=== PATIENT | male | born 1945 | race Caucasian/White ===

== ENCOUNTER 2017-01-22 12:03 | Inpatient (IN) ==
[2017-01-22] MEDS ORDERED: ADENOCARD IVP STA (12:23)
[2017-01-22] MEDS ORDERED: ADENOCARD IVP ONE (12:24)
[2017-01-22] MEDS ORDERED: LOPRESSOR IVP STA (12:26)
[2017-01-22] MEDS ORDERED: LOPRESSOR ONE (12:27)
[2017-01-22] MEDS ORDERED: CARDIZEM INJ ONE (12:36)
[2017-01-22] MEDS ORDERED: CARDIZEM INJ IVP STA ×2 (12:36→17:10)
[2017-01-22 12:37] LABS: BASOPHILS % (AUTO) 0.3 % (0.0-3.0); EOSINOPHILS % (AUTO) 0.2 % (0.0-7.0); HEMATOCRIT 52.9 % (42.0-52.0); HEMOGLOBIN 17.4 g/dl (14.0-18.0); IMMATURE GRANULOCYTE % (AUTO) 0.5 % (0.0-5.0); LYMPHOCYTES # (AUTO) 1.1 K/uL (0.60-3.4); MEAN CORPUSCULAR HEMOGLOBIN 28.3 pg (27.0-31.0); MEAN CORPUSCULAR HGB CONC 32.9 (31.8-35.4); MEAN CORPUSCULAR VOLUME 86.2 fl (80.0-94.0); MONOCYTES # (AUTO) 1.4 K/uL (0.4-2.0); MONOCYTES % (AUTO) 12.5 (0-10); NEUTROPHILS # (AUTO) 8.4 K/ul (2.0-6.9); NEUTROPHILS % (AUTO) 76.5; PLATELET COUNT 280 10^3/uL (140-440); RED BLOOD COUNT 6.14 10^6/ul (4.70-6.10); WHITE BLOOD COUNT 11.01 K/ul (4.2-10.2)
[2017-01-22 12:54] LABS: PARTIAL THROMBOPLASTIN TIME 25.1 SEC (23.9-40.0); PROTHROMBIN TIME 10.8 SEC (9.3-11.0)
[2017-01-22 13:22] LABS: ALBUMIN 3.3 g/dL (3.4-5.0); ALBUMIN/GLOBULIN RATIO 0.89; ANION GAP 18.3; BILIRUBIN,TOTAL 0.44 mg/dL (0.00-1.20); BUN/CREATININE RATIO 21.1; CALCIUM 9.6 mg/dL (8.2-10.2); CREATININE 1.09 mg/dL (0.60-1.10); POTASSIUM 4.3 mmol/L (3.5-5.1); TROPONIN I 0.051 ng/ml (0.0000-0.4000)
[2017-01-22] MEDS ORDERED: VERSED IVP STA (14:17)
[2017-01-22] MEDS ORDERED: VERSED ONE (14:17)
--- NOTE | 2017-01-22 14:45 | ED.PDOC ---
General ED Provider: Dr. MONTSERRAT MYESR Chief Complaint: Shortness of Air Stated Complaint: SHORT OF AIR Time Seen by Physician: 12:00 Mode of Arrival: Walk-In Information Source: Patient Exam Limitations: No limitations Primary Care Provider: LIGIA LONDON Nursing and Triage Documentation Reviewed and Agree: Yes Cardiovascular Complaint Exam - Palpitations Complaint/Exam Symptoms Are: Still present Timing: Intermittent Initial Severity: Moderate Current Severity: Moderate Character: Reports: Irregular, Pounding, Skipped beats Aggravating: Reports: Exertion, Rest Alleviating: Reports: Medications Associated Signs and Symptoms: Reports: Lightheadedness, Shortness of breath. Denies: Dizziness, Syncope, Chest pain, Diaphoresis, Nausea, Vomiting Cardiac Risk Factors: Reports: None Pulmonary Embolism Risk Factors: Reports: Bedrest Review of Systems - Review Of Systems Constitutional: Reports: Malaise Eyes: Reports: No symptoms Ears, Nose, Mouth, Throat: Reports: No symptoms Respiratory: Reports: No symptoms Cardiac: Reports: Chest pain, Palpitations GI: Reports: No symptoms : Reports: No symptoms Musculoskeletal: Reports: No symptoms Skin: Reports: No symptoms Neurological: Reports: No symptoms Endocrine: Reports: No symptoms Hematologic/Lymphatic: Reports: No symptoms All Other Systems: Reviewed and Negative Past Medical History - Past Medical History Previously Healthy: Yes Endocrine: Reports: None Cardiovascular: Reports: None Respiratory: Reports: None Hematological: Reports: None Gastrointestinal: Reports: None Genitourinary: Reports: None Neuro/Psych: Reports: None Musculoskeletal: Reports: None Cancer: Reports: None - Surgical History General Surgical History: Reports: None - Family History Family History: Reports: None - Social History Smoking Status: Former smoker Hx Substance Use: No Alcohol Screening: Occasionally - Immunizations Tetanus Shot up to Date: Yes Physical Exam - Physical Exam Appearance: Ill-appearing Ill-appearing: Moderate Pain Distress: Moderate Eyes: GISELLE, EOMI, Conjunctiva clear ENT: Ears normal, Nose normal, Oropharynx normal Respiratory: Breath sounds diminished, Rhonchi Cardiovascular: RRR, Pulses normal, No rub, No murmur GI/: Soft, Nontender, No masses, Bowel sounds normal, No Organomegaly Musculoskeletal: Normal strength, ROM intact, No edema, No calf tenderness Skin: Warm, Dry, Normal color Neurological: Sensation intact, Motor intact, Reflexes intact, Cranial nerves intact, Alert, Oriented Psychiatric: Affect appropriate, Mood appropriate Interpretation - Radiology Interpretation Radiology Interpretation By: Radiologist Radiology Results: No acute changes (THIS PT'S EKH RANGED FROM WIDE COMPLEX TACHYCARDIA REGULAR INITALLY THEN BECAME IRREGULAR IV ADENOCAR SLOWED HIM ENOUGH TO SHOW UNDERLYING FLUTTER WAVES PT EVENTUALLY HAD TO BE DARIOVERTED WITH 50 JOULES TO NSR RIGHT BUDDLE BRANCH BLOCK) Physician Notification - Case Discussed Physician Notified: PMD Time of Notification: 14:00 (SAW THE PT IN THE ER ) Admit To: Inpatient Critical Care Note - Critical Care Note Total Time (mins): 3 (S/P SEDATION CARDIOVERSION ) Course - Course Hematology/Chemistry: 01/22/17 12:35 01/22/17 12:35 Orders, Labs, Meds: Lab Review 01/22/17 01/22/17 01/22/17 12:35 12:35 12:35 WBC 11.01 H RBC 6.14 H Hgb 17.4 Hct 52.9 H MCV 86.2 MCH 28.3 MCHC 32.9 RDW Coeff of Iván 15.4 H Plt Count 280 Immature Gran % (Auto) 0.5 Neut % (Auto) 76.5 Lymph % (Auto) 10.0 [place] % (Auto) 12.5 H Eos % (Auto) 0.2 Baso % (Auto) 0.3 Immature Gran # (Auto) 0.1 Neut # 8.4 H Lymph # 1.1 [place] # 1.4 Eos # 0.0 Baso # 0.0 PT 10.8 INR 1.06 APTT 25.1 Sodium 139 Potassium 4.3 Chloride 106 Carbon Dioxide 19 L Anion Gap 18.3 BUN 23 H Creatinine 1.09 Estimated GFR (MDRD) 67.00 BUN/Creatinine Ratio 21.10 Glucose 122 H Calcium 9.6 Total Bilirubin 0.44 AST 12 L ALT 18 Alkaline Phosphatase 60 Total Creatine Kinase 51 Troponin I 0.0510 Total Protein 7.0 Albumin 3.3 L Globulin 3.7 Albumin/Globulin Ratio 0.89 TSH Free T4 01/22/17 12:35 WBC RBC Hgb Hct MCV MCH MCHC RDW Coeff of Iván Plt Count Immature Gran % (Auto) Neut % (Auto) Lymph % (Auto) [place] % (Auto) Eos % (Auto) Baso % (Auto) Immature Gran # (Auto) Neut # Lymph # [place] # Eos # Baso # PT INR APTT Sodium Potassium Chloride Carbon Dioxide Anion Gap BUN Creatinine Estimated GFR (MDRD) BUN/Creatinine Ratio Glucose Calcium Total Bilirubin AST ALT Alkaline Phosphatase Total Creatine Kinase Troponin I Total Protein Albumin Globulin Albumin/Globulin Ratio TSH 2.376 Free T4 1.09 Orders Category Date Time Status EKG-(ED ONLY) Stat CARDIO 01/22/17 12:37 Completed EKG-(ED ONLY) Stat CARDIO 01/22/17 13:11 Completed EKG-(ED ONLY) Stat CARDIO 01/22/17 13:11 Completed EKG-(ED ONLY) Stat CARDIO 01/22/17 13:11 Completed EKG-(ED ONLY) Stat CARDIO 01/22/17 14:40 Ordered Cardioversion [ED CARDIOVERT PATIENT] .ONCE EMERGENCY 01/22/17 14:40 Ordered IV [ED IV/MEDIPORT/POWERPORT] .ONCE EMERGENCY 01/22/17 12:20 Active CBC W/ AUTO DIFF Stat LAB 01/22/17 12:35 Completed COMPREHENSIVE METABOLIC PANEL Stat LAB 01/22/17 12:35 Completed CREATINE KINASE Stat LAB 01/22/17 12:35 Completed FREE T4 (FREE THYROXINE) Stat LAB 01/22/17 12:35 Completed PARTIAL THROMBOPLASTIN TIME Stat LAB 01/22/17 12:35 Completed PT WITH INR Stat LAB 01/22/17 12:35 Completed THYROID STIMULATING HORMONE Stat LAB 01/22/17 12:35 Completed TROPONIN I Stat LAB 01/22/17 12:35 Completed 0.9 % Sodium Chloride [Saline Flush] MEDS 01/22/17 12:20 Active 1 syr IVF PRN PRN Adenosine [Adenocard] MEDS 01/22/17 12:24 Discontinued 12 mg IVP .STK-MED ONE Adenosine [Adenocard] MEDS 01/22/17 12:23 Discontinued 6 mg IVP ONCE STA Diltiazem HCl Inj [Cardizem Inj] MEDS 01/22/17 12:36 Discontinued 20 mg IVP ONCE STA Diltiazem HCl Inj [Cardizem Inj] MEDS 01/22/17 12:36 Discontinued 50 mg .ROUTE .STK-MED ONE Metoprolol Tartrate [Lopressor] MEDS 01/22/17 12:27 Discontinued 5 mg .ROUTE .STK-MED ONE Metoprolol Tartrate [Lopressor] MEDS 01/22/17 12:26 Discontinued 5 mg IVP ONCE STA Midazolam HCl Inj [Versed] MEDS 01/22/17 14:17 Discontinued 5 mg .ROUTE .STK-MED ONE Midazolam HCl Inj [Versed] MEDS 01/22/17 14:17 Discontinued 5 mg IVP ONCE STA Medications Generic Name Dose Route Start Last Admin Trade Name Freq PRN Reason Stop Dose Admin Sodium Chloride 1 syr 01/22/17 12:20 01/22/17 13:00 Saline Flush IVF 1 syr PRN PRN Administration To flush IV Discontinued Medications Generic Name Dose Route Start Last Admin Trade Name Freq PRN Reason Stop Dose Admin Adenosine 6 mg 01/22/17 12:23 01/22/17 12:59 Adenocard IVP 01/22/17 12:24 Not Given ONCE STA Diltiazem HCl 20 mg 01/22/17 12:36 01/22/17 13:00 Cardizem Inj IVP 01/22/17 12:37 Not Given ONCE STA Metoprolol Tartrate 5 mg 01/22/17 12:26 01/22/17 12:59 Lopressor IVP 01/22/17 12:27 Not Given ONCE STA Midazolam HCl 5 mg 01/22/17 14:17 Versed IVP 01/22/17 14:18 ONCE STA Vital Signs: Temp Pulse Resp BP Pulse Ox 01/22/17 12:04 97.7 F 170 H 24 112/76 92 L RENÉ Risk Score RENÉ Risk Score: Risk Score Odds of by 30D 0 0.1 (0.1-0.2) 1 0.3 (0.2-0.3) 2 0.4 (0.3-0.5) 3 0.7 (0.6-0.9) 4 1.2 (1.0-1.5) 5 2.2 (1.9-2.6) 6 3.0 (2.5-3.6) 7 4.8 (3.8-6.1) Departure - Departure Time of Disposition: 14:49 (ADMITTED ) Disposition: ADMITTED INPATIENT Discharge Problem: Wide-complex tachycardia, Atrial fibrillation and flutter Instructions: A-fib (Atrial Fibrillation) (ED) Condition: Good Pt referred to PMD for follow-up: Yes Additional Instructions: Please call your Family Physician as soon as possible to schedule a follow-up appointment. Allergies/Adverse Reactions: Allergies No Known Allergies Allergy (Unverified 01/22/17 12:07) Home Medications: Ambulatory Orders 1 [No Reported Medications] 01/22/17 Hydrochlorothiazide 12.5 mg PO DAILY 01/22/17 Metformin HCl 2,000 mg PO DAILY 01/22/17 Simvastatin [Zocor] 80 mg PO DAILY 01/22/17 Disposition Discussed With: Patient
[2017-01-22] MEDS ORDERED: LANOXIN IVP STA ×2 (14:46→16:35)
[2017-01-22] MEDS ORDERED: LOVENOX SUBCUT STA (15:04)
[2017-01-22] MEDS: SODIUM CHLORIDE 1,000 ML IV SCH ×2 (16:00→20:30)
[2017-01-22 16:30] VITALS: BMI 27.3
[2017-01-22] MEDS ORDERED: BETAPACE PO STA (16:35)
[2017-01-22] MEDS ORDERED: SOLU-CORTEF 250 MG IVP STA (16:36)
[2017-01-22] MEDS: CARDIZEM PO SCH ×2 (16:54→20:30)
[2017-01-22] MEDS ORDERED: CARDIZEM INJ 125 MG in SODIUM CHLORIDE 100 ML IV SCH ×2 (17:30→17:39)
[2017-01-22] MEDS ORDERED: LANOXIN IVP ONE (18:00)
[2017-01-22] MEDS ORDERED: LOVENOX ONE (18:30)
[2017-01-22] MEDS: LOVENOX SUBCUT SCH (18:38)
[2017-01-22 21:51] LABS: TROPONIN I 0.019 ng/ml (0.0000-0.4000)
[2017-01-23] MEDS ORDERED: LANOXIN ONE (05:46)
[2017-01-23] MEDS: CARDIZEM PO SCH ×3 (05:49→20:54)
[2017-01-23] MEDS ORDERED: LANOXIN IVP ONE (06:00)
[2017-01-23 06:08] LABS: BASOPHILS % (AUTO) 0.4 % (0.0-3.0); EOSINOPHILS # (AUTO) 0.1 K/ul (0.0-0.7); EOSINOPHILS % (AUTO) 1.1 % (0.0-7.0); HEMATOCRIT 54.9 % (42.0-52.0); HEMOGLOBIN 17.5 g/dl (14.0-18.0); IMMATURE GRANULOCYTE % (AUTO) 0.4 % (0.0-5.0); LYMPHOCYTES # (AUTO) 1.4 K/uL (0.60-3.4); LYMPHOCYTES % (AUTO) 15.6 (10.0-50.0); MEAN CORPUSCULAR HEMOGLOBIN 28.4 pg (27.0-31.0); MEAN CORPUSCULAR HGB CONC 31.9 (31.8-35.4); MONOCYTES # (AUTO) 1.2 K/uL (0.4-2.0); MONOCYTES % (AUTO) 13.4 (0-10); NEUTROPHILS # (AUTO) 6.4 K/ul (2.0-6.9); NEUTROPHILS % (AUTO) 69.1; PLATELET COUNT 258 10^3/uL (140-440); RED BLOOD COUNT 6.17 10^6/ul (4.70-6.10); WHITE BLOOD COUNT 9.19 K/ul (4.2-10.2)
[2017-01-23 06:27] LABS: ALBUMIN 3.3 g/dL (3.4-5.0); ALBUMIN/GLOBULIN RATIO 0.87; ANION GAP 15.3; BILIRUBIN,TOTAL 0.52 mg/dL (0.00-1.20); BUN/CREATININE RATIO 22.22; CALCIUM 9.2 mg/dL (8.2-10.2); CREATININE 0.99 mg/dL (0.60-1.10); POTASSIUM 4.3 mmol/L (3.5-5.1); TOTAL PROTEIN 7.1 g/dL (5.8-8.1)
[2017-01-23 06:33] LABS: TROPONIN I 0.021 ng/ml (0.0000-0.4000)
[2017-01-23 08:42] LABS: ABG BASE EXCESS -4 (-2.0-2.0); ABG PCO2 38.7 mmHg (35-45)
[2017-01-23 08:43] LABS: ABG HCO3 21.4 (22.0-26.0); ABG TCO2 23 (22.0-28.0)
[2017-01-23] MEDS: SYMBICORT 160-4.5 MCG INHALER IH SCH ×3 (08:58→20:53)
[2017-01-23] MEDS: NON-FORMULARY MEDICATION (Fluticasone/Vilanterol [Breo Ellipta 100-25 Mcg Inh] 1 PUFF) INH SCH (08:59)
[2017-01-23] MEDS: GLUCOPHAGE PO SCH ×2 (08:59→16:57)
[2017-01-23] MEDS ORDERED: NON-FORMULARY MEDICATION (Hydrochlorothiazide [Hydrochlorothiazide] 12.5 MG) PO SCH ×22 (09:00)
[2017-01-23] MEDS ORDERED: METFORMIN HCL 2000 MG PO SCH (09:00)
[2017-01-23] MEDS: HYDROCHLOROTHIAZIDE PO SCH (09:00)
[2017-01-23] MEDS: BETAPACE PO SCH ×2 (09:00→20:54)
[2017-01-23] MEDS: LOVENOX SUBCUT SCH (09:01)
[2017-01-23] MEDS: SODIUM CHLORIDE 1,000 ML IV SCH ×2 (09:02→21:36)
[2017-01-23] MEDS: SOLU-CORTEF 250 MG IVP SCH ×3 (09:02→20:53)
[2017-01-23] MEDS: XOPENEX 0.63 MG NEB SCH ×3 (11:09→23:53)
[2017-01-23] MEDS: ELIQUIS PO SCH ×2 (11:37→20:54)
[2017-01-23] MEDS: ZOCOR PO SCH (16:57)
[2017-01-24] MEDS: XOPENEX 0.63 MG NEB SCH ×3 (05:36→17:10)
[2017-01-24] MEDS: SOLU-CORTEF 250 MG IVP SCH ×3 (05:54→20:19)
[2017-01-24 07:44] LABS: BASOPHILS % (AUTO) 0.1 % (0.0-3.0); EOSINOPHILS % (AUTO) 0.1 % (0.0-7.0); HEMATOCRIT 51.7 % (42.0-52.0); HEMOGLOBIN 16.5 g/dl (14.0-18.0); IMMATURE GRANULOCYTE % (AUTO) 0.5 % (0.0-5.0); LYMPHOCYTES # (AUTO) 1.3 K/uL (0.60-3.4); MEAN CORPUSCULAR HEMOGLOBIN 28.3 pg (27.0-31.0); MEAN CORPUSCULAR HGB CONC 31.9 (31.8-35.4); MEAN CORPUSCULAR VOLUME 88.7 fl (80.0-94.0); MONOCYTES # (AUTO) 1.1 K/uL (0.4-2.0); MONOCYTES % (AUTO) 10.5 (0-10); NEUTROPHILS # (AUTO) 8.1 K/ul (2.0-6.9); NEUTROPHILS % (AUTO) 76.8; PLATELET COUNT 297 10^3/uL (140-440); RED BLOOD COUNT 5.83 10^6/ul (4.70-6.10); WHITE BLOOD COUNT 10.48 K/ul (4.2-10.2)
[2017-01-24 08:05] LABS: ALBUMIN/GLOBULIN RATIO 0.83; ANION GAP 16.8; BILIRUBIN,TOTAL 0.55 mg/dL (0.00-1.20); BUN/CREATININE RATIO 19.76; CALCIUM 9.1 mg/dL (8.2-10.2); CREATININE 0.86 mg/dL (0.60-1.10); POTASSIUM 3.8 mmol/L (3.5-5.1); TOTAL PROTEIN 6.6 g/dL (5.8-8.1)
[2017-01-24] MEDS: GLUCOPHAGE PO SCH ×2 (09:10→18:19)
[2017-01-24] MEDS: HYDROCHLOROTHIAZIDE PO SCH (09:11)
[2017-01-24] MEDS: BETAPACE PO SCH ×2 (09:11→20:18)
[2017-01-24] MEDS: CARDIZEM PO SCH ×2 (09:12→20:17)
[2017-01-24] MEDS: LOVENOX SUBCUT SCH (09:24)
[2017-01-24] MEDS: NON-FORMULARY MEDICATION (Fluticasone/Vilanterol [Breo Ellipta 100-25 Mcg Inh] 1 PUFF) INH SCH (09:24)
[2017-01-24] MEDS: SYMBICORT 160-4.5 MCG INHALER IH SCH ×2 (09:37→20:19)
[2017-01-24] MEDS: ELIQUIS PO SCH ×2 (09:38→20:18)
[2017-01-24] MEDS: SODIUM CHLORIDE 1,000 ML IV SCH (14:01)
[2017-01-24] MEDS ORDERED: PROAIR HFA IH PRN (17:26)
[2017-01-24] MEDS: ZOCOR PO SCH (18:21)
[2017-01-25] MEDS: XOPENEX 0.63 MG NEB SCH ×5 (01:22→23:35)
[2017-01-25] MEDS: SOLU-CORTEF 250 MG IVP SCH ×3 (04:25→22:03)
[2017-01-25] MEDS: BETAPACE PO SCH ×2 (08:52→22:01)
[2017-01-25] MEDS: CARDIZEM PO SCH ×2 (08:53→22:00)
[2017-01-25] MEDS: GLUCOPHAGE PO SCH ×2 (08:53→18:36)
[2017-01-25] MEDS: ELIQUIS PO SCH ×2 (08:53→22:00)
[2017-01-25] MEDS: NON-FORMULARY MEDICATION (Fluticasone/Vilanterol [Breo Ellipta 100-25 Mcg Inh] 1 PUFF) INH SCH (08:54)
[2017-01-25] MEDS: HYDROCHLOROTHIAZIDE PO SCH (08:54)
[2017-01-25] MEDS: SYMBICORT 160-4.5 MCG INHALER IH SCH ×2 (08:55→22:30)
[2017-01-25] MEDS: LOVENOX SUBCUT SCH (08:56)
[2017-01-25 09:46] LABS: BASOPHILS % (AUTO) 0.2 % (0.0-3.0); HEMATOCRIT 51.4 % (42.0-52.0); HEMOGLOBIN 16.5 g/dl (14.0-18.0); IMMATURE GRANULOCYTE % (AUTO) 0.4 % (0.0-5.0); LYMPHOCYTES # (AUTO) 0.9 K/uL (0.60-3.4); LYMPHOCYTES % (AUTO) 7.2 (10.0-50.0); MEAN CORPUSCULAR HEMOGLOBIN 28.2 pg (27.0-31.0); MEAN CORPUSCULAR HGB CONC 32.1 (31.8-35.4); MEAN CORPUSCULAR VOLUME 87.9 fl (80.0-94.0); MONOCYTES # (AUTO) 0.8 K/uL (0.4-2.0); MONOCYTES % (AUTO) 6.3 (0-10); NEUTROPHILS # (AUTO) 11.2 K/ul (2.0-6.9); NEUTROPHILS % (AUTO) 85.9; PLATELET COUNT 311 10^3/uL (140-440); RED BLOOD COUNT 5.85 10^6/ul (4.70-6.10); WHITE BLOOD COUNT 12.97 K/ul (4.2-10.2)
[2017-01-25 10:05] LABS: ALBUMIN/GLOBULIN RATIO 0.86; ANION GAP 14.7; BILIRUBIN,TOTAL 0.72 mg/dL (0.00-1.20); BUN/CREATININE RATIO 23.95; CALCIUM 9.2 mg/dL (8.2-10.2); CREATININE 0.96 mg/dL (0.60-1.10); POTASSIUM 3.7 mmol/L (3.5-5.1); TOTAL PROTEIN 6.5 g/dL (5.8-8.1)
[2017-01-25] MEDS: ZOCOR PO SCH (18:37)
[2017-01-26] MEDS: XOPENEX 0.63 MG NEB SCH ×4 (05:14→23:00)
[2017-01-26 05:52] LABS: BASOPHILS % (AUTO) 0.1 % (0.0-3.0); HEMATOCRIT 47.2 % (42.0-52.0); HEMOGLOBIN 15.2 g/dl (14.0-18.0); IMMATURE GRANULOCYTE % (AUTO) 0.5 % (0.0-5.0); LYMPHOCYTES # (AUTO) 1.1 K/uL (0.60-3.4); LYMPHOCYTES % (AUTO) 10.9 (10.0-50.0); MEAN CORPUSCULAR HEMOGLOBIN 28.3 pg (27.0-31.0); MEAN CORPUSCULAR HGB CONC 32.2 (31.8-35.4); MEAN CORPUSCULAR VOLUME 87.9 fl (80.0-94.0); MONOCYTES # (AUTO) 0.9 K/uL (0.4-2.0); MONOCYTES % (AUTO) 8.9 (0-10); NEUTROPHILS # (AUTO) 8.2 K/ul (2.0-6.9); NEUTROPHILS % (AUTO) 79.6; PLATELET COUNT 277 10^3/uL (140-440); RED BLOOD COUNT 5.37 10^6/ul (4.70-6.10); WHITE BLOOD COUNT 10.27 K/ul (4.2-10.2)
[2017-01-26 06:26] LABS: ALBUMIN 2.7 g/dL (3.4-5.0); ALBUMIN/GLOBULIN RATIO 0.87; ANION GAP 13.3; BILIRUBIN,TOTAL 0.57 mg/dL (0.00-1.20); BUN/CREATININE RATIO 33.33; CALCIUM 8.7 mg/dL (8.2-10.2); CREATININE 0.78 mg/dL (0.60-1.10); POTASSIUM 3.3 mmol/L (3.5-5.1); TOTAL PROTEIN 5.8 g/dL (5.8-8.1)
[2017-01-26] MEDS: SOLU-CORTEF 250 MG IVP SCH ×3 (07:55→20:07)
[2017-01-26 09:18] LABS: ABG PCO2 44.6 mmHg (35-45); ABG PH 7.439 (7.35-7.45)
[2017-01-26 09:20] LABS: ABG BASE EXCESS 6 (-2.0-2.0); ABG HCO3 30.2 (22.0-26.0); ABG TCO2 32 (22.0-28.0)
--- NOTE | 2017-01-26 09:53 | PN ---
DATE OF SERVICE: 01/22/17 SUBJECTIVE: The patient came to the office with being short of breath. He called into today to be seen. The patient had the vitals taken and his pulse was 170 per minute. Atypical pulse was the same. Blood pressure was 100/80 duration two day sudden onset. Examined this patient again in the emergency room. The patient had atrial flutter with rapid ventricle response. The patient was given Cardizem drip, later on I'm going to given him Lanoxin 0.25 IV. The patient has no real symptoms of CHF. The patient needs to be educated about atrial fibrillation. Education already started. The understood what we were talking about. The patient very likely is going to end up on NORVAL blood thinners. CONDITION: Stable. ASSESSMENT: 1. Atrial flutter with rapid ventricle response. 2. Shortness of breath 3. Chronic lung disease 4. Diabetes mellitus 5. Hypertension 6. LVH 7. COPD 8. Carotid stenosis 9. Chronic kidney disease, stage 3 10. Glaucoma TIME SPENT: More than 30 minutes. Plan and coordination of the patient's care discussed in the presence of nurse. PAULIE
[2017-01-26] MEDS: NON-FORMULARY MEDICATION (Fluticasone/Vilanterol [Breo Ellipta 100-25 Mcg Inh] 1 PUFF) INH SCH (10:03)
[2017-01-26] MEDS: BETAPACE PO SCH ×2 (10:03→20:07)
[2017-01-26] MEDS: SYMBICORT 160-4.5 MCG INHALER IH SCH ×2 (10:03→20:07)
[2017-01-26] MEDS: HYDROCHLOROTHIAZIDE PO SCH (10:04)
[2017-01-26] MEDS: CARDIZEM PO SCH ×2 (10:04→20:07)
[2017-01-26] MEDS: GLUCOPHAGE PO SCH ×2 (10:04→17:16)
[2017-01-26] MEDS: ELIQUIS PO SCH ×2 (10:05→20:07)
[2017-01-26] MEDS: LOVENOX SUBCUT SCH (10:05)
--- NOTE | 2017-01-26 10:38 | HP ---
DATE OF SERVICE: 01/22/17 REASON FOR HOSPITALIZATION/HISTORY OF PRESENT ILLNESS: 71 year old white male came to the office with complaint of being short of breath of two days duration. The patient also complained of some palpitation. The patient says that she is short of breath on minimal exertion and feeling fatigue and tired. PAST MEDICAL HISTORY/PAST SURGICAL HISTORY: History of chronic lung disease Hypertension Diabetes mellitus Dyslipidemia Obesity with overweight sedentary lifestyle REVIEW OF SYSTEMS: CONSTITUTIONAL: No night sweats. Weakness and fatigue. No fever or chills. HEENT: Eyes: No visual changes. No eye pain. No eye discharge. ENT: No runny nose. No epistaxis. No sinus pain. No sore throat. No odynophagia. No ear pain. No congestion. RESPIRATORY: Mild cough, no congestion. No hemoptysis. Shortness of breath on exertion. CARDIOVASCULAR: No angina symptoms. No CHF symptoms. No atypical chest pain for CAD. No palpitations. No orthopnea. No PND. GASTROINTESTINAL: No abdominal pain. No nausea or vomiting. No diarrhea or constipation. No hematemesis. No hematochezia. GENITOURINARY: No urgency. No frequency. No dysuria. No hematuria. No obstructive symptoms. No discharge. No pain. No significant abnormal bleeding. MUSCULOSKELETAL: No musculoskeletal pain. No joint swelling. No arthritis. NEUROLOGICAL: No headache. No neck pain. No syncope. No seizures. No dizziness. PSYCHIATRIC: Not anxious. No depression. No suicidal thoughts. No homicidal thoughts. SKIN: No rash. No lesions. No wounds. ENDOCRINE: No unexplained weight loss. No weight gain. HEMATOLOGIC/LYMPHATIC: No anemia. No purpura. No petechiae. No prolonged or excessive bleeding. No palpable lymph nodes. PERSONAL/FAMILY/SOCIAL HISTORY: The patient is and lives with . The patient quit smoking several years ago. No alcohol abuse. The patient does all activity of daily living. MEDICATIONS: Ventolin HFA two puffs four times a day PRN Lisinopril/ Hydrochlorothiazide 10/12.5 half a tablet PO daily Metformin 1,000 PO twice a day Aspirin 81mg PO daily Simvastatin 40mg PO daily ALLERGIES: No known allergies PHYSICAL EXAMINATION: GENERAL: The patient is oriented to time, place and person VITAL SIGNS: Temperature 98.8, pulse 170 per minute, respiratory rate 15, blood pressure 100/80 and oxygen saturation 94% on room air. The patient is 5'9 and weighs 186 pounds. HEENT: Head normocephalic, atraumatic. Eyes: Extraocular muscles are intact. Pupils are equal, round and reactive to light and accommodation. Ears: No lesions. Nose appeared normal. Throat: No exudate or erythema. NECK: Supple. No JVP, no carotid bruit. No lymphadenopathy or thyromegaly. LUNGS: Clear but decreased breath sounds. Percussion note normal. Chest symmetrical. HEART: S1, S2, no S3. Tachycardia Rate more than 150 per minute. No murmurs. No cyanosis or clubbing. No ascites. Pulses: Dorsalis pedis and posterior tibial pulses +1 bilaterally. PMI not palpable. ABDOMEN: Soft. Nontender. Bowel sounds active. No CVA tenderness. No mass felt. EXTREMITIES: Trace edema. Full range of motion of all extremities, equal. NEUROLOGIC: No focal deficit. Cranial nerves II through XII are grossly intact. No headache, no double vision or headache. SKIN: Not dry. Intact. Turgor - normal. LYMPHATIC: No palpable lymph nodes/no lymphedema. MUSCULOSKELETAL: Normal joints with no swelling. Muscle tone is normal. LABS: No CHF, EKG atrial flutter SVT with rate of 170 per minute with no acute changes. All Labs including Potassium, kidney profile all acceptable. ASSESSMENT: 1. SVT/atrial flutter with rate of 170 per minute 2. Relative hypertension 3. Severe chronic lung disease 4. Diabetes Mellitus 5. Hypertension/LVH 6. Carotid stenosis, mild to moderate 7. Chronic kidney disease stage 2/3 8. Glaucoma 9. History of herpes zoster PLAN: 1. The patient was seen and examined in the emergency room. Her case was discussed with ER attending. 2. The patient will be given 0.5mg of IV Lanoxin 3. The patient was converted with 50 joules after giving two 5mg Versed IV the patient converted to sinus rhythm with right bundle branch type of pattern with no acute changes. Old inferior wall OH and/or pseudo inferior wall OH from COPD. The patient after one hour converted to atrial flutter SVT with rate of 160-170 per minute. I examined the patient again in the intensive care unit where he was given 0.25mg of Lasix IV. 10mg IV Cardizem was given. IV drip 5mg per hour Cardizem. 4. Monitor the blood gasses 5. Monitor the blood pressure keep it over 90 systolic. 6. The patient will be given Betapace 40mg PO twice a day 7. Also given Solu-Cortef 125mg IV now 8. Try to improve his lung function, the patient is usually with COPD and atrial flutter very resistant to medications and even cardioversion. 9. The patient's in the room and explained about all these findings as we went along. 10.The patient wants DNR, prior to cardioversion the patient was given Adenosine, Amiodarone and IV Cardizem TIME SPENT: 2 hours, critical care. ASHISHD
--- NOTE | 2017-01-26 11:21 | PN ---
DATE OF SERVICE: 01/23/17 SUBJECTIVE: 71 year old white male hospitalized yesterday with atrial fibrillation/flutter with rate of 170 per minute. The patient's condition has improved now and he seems to be in atrial fibrillation with rate of 80 per minute. The patient was cardioverted yesterday in the ER and was in sinus rhythm for an hour and after that he converted back into the atrial flutter with rate 170. The patient has been given .757mg IV Lanoxin on top of that he has gotten Cardizem drip with PO Cardizem and Betapace. The patient is feeling better. Short of breath on exertion walking to the bathroom. The family is in the room especially the and brother. REVIEW OF SYSTEMS: CONSTITUTIONAL: No night sweats. No fatigue, malaise, lethargy. No fever or chills. HEENT: Eyes: No visual changes. No eye pain. No eye discharge. ENT: No runny nose. No epistaxis. No sinus pain. No sore throat. No odynophagia. No congestion. RESPIRATORY: No cough, no congestion. No hemoptysis. Shortness of breath on exertion. CARDIOVASCULAR: No angina symptoms. No CHF symptoms. No atypical chest pain for CAD. No palpitations. No orthopnea. No PND. GASTROINTESTINAL: No abdominal pain. No nausea or vomiting. No diarrhea or constipation. No hematemesis. No hematochezia. GENITOURINARY: No urgency. No frequency. No dysuria. No hematuria. No obstructive symptoms. No discharge. No pain. No significant abnormal bleeding. MUSCULOSKELETAL: No musculoskeletal pain; no joint swelling. NEUROLOGICAL: No headache. No neck pain. No syncope. No seizures. No dizziness. PSYCHIATRIC: Not anxious. No depression. No suicidal thoughts. No homicidal thoughts. SKIN: No rash. No lesions. No wounds. ENDOCRINE: No unexplained weight loss. No weight gain. HEMATOLOGIC/LYMPHATIC: No anemia. No purpura. No petechiae. No prolonged or excessive bleeding. No palpable lymph nodes. PHYSICAL EXAMINATION: GENERAL: The patient is oriented to time, place and person. VITAL SIGNS: Temperature 97.4, pulse 83, respiratory rate 24, blood pressure 124 /76 with pulse ox 93%. HEENT: Head normocephalic, atraumatic. Eyes: Extraocular muscles are intact. Pupils are equal, round and reactive to light and accommodation. Ears: No lesions. Nose appeared normal. Throat: No exudate or erythema. NECK: Supple. No JVD, no carotid bruit. No lymphadenopathy or thyromegaly. LUNGS: Decreased breath sounds with mild expiratory wheeze. Percussion note normal. Chest symmetrical. HEART: S1, S2, no S3. No murmurs. No cyanosis or clubbing. No ascites. Pulses: Dorsalis pedis and posterior tibial pulses +1 to +2 both sides. ABDOMEN: Soft. Nontender. Bowel sounds active. No CVA tenderness. No mass felt. EXTREMITIES: No edema. Full range of motion of all extremities, equal. NEUROLOGIC: No focal deficit. Cranial nerves II through XII are grossly intact. No headache, no double vision or headache. SKIN: Not dry. Intact. Turgor - normal. LYMPHATIC: No palpable lymph nodes/no lymphedema. MUSCULOSKELETAL: Normal joints with no swelling. Muscle tone is normal. LABS: Hgb 17, hct 454, WBC 9,100 normal differential, creatinine 0.9, BUN 22, potassium 4.3, BNP 248 ASSESSMENT: 1. Atrial fib/flutter 2. Severe chronic lung disease 3. Hypertension 4. Dyslipidemia 5. Glaucoma PLAN: 1. Continue IV Solu-Cortef 2. Continue Xopenex 3. Will add Symbicort two puffs twice a day 4. The patient advised pulmonary rehab, discussed 5. Echocardiogram 2DM Mode done which showed LA cavity around 4cm size with normal LV contractility and enlarged RV cavity indicating pulmonary disease. Explained all these findings. 6. The patient will be continued on Cardizem the dose will be 120 twice a day after he is taken off of the drip. 7. Betapace 40mg twice a day 8. Lanoxin will be done, he got 0.25 Lanoxin IV dose this morning 9. All the diagnosis discussed with the patient and the patient wants DNR. 10. Start him on Eliquis 5mg twice a day 11. Eliquis and NORVAL blood thinners discussed with him with atrial fibrillation his METS score would be age plus history of hypertension 12. GI bleed and intracranial bleed discussed with the Neal CONDITION: Stable. The patient quit smoking nearly 8-9 years ago. TIME SPENT: More than 60 minutes extensive. Plan and coordination of the patient's care discussed in the presence of nurse. PAULIE
--- NOTE | 2017-01-26 11:37 | ECHO2D ---
Date of Exam: 01/23/17 Ordering Physician: LIGIA LONDON Room #: SCU3 Reason for Echo: ATRIAL FIBRILLATION, CHRONIC RESPIRATORY FAILURE M-Mode Normal Adult Results LV Dimensions Normal Adult Results AoV Opening excursions >1.6 >1.6 LVEDD-base- 3.5-5.8 4.8 Ao root dimensions 2.0-3.7 3.4 LVESD-base- 3.1-4.6 L. Atrium dimensions 1.9-3.8 4.1 Post. Wall thickness 0.8-1.1 1.3 IV septum (thickness) 0.7-1.2 1.3 Post. Wall excursion 0.72-1.3 NORMAL Septal motion NORMAL Systolic motion R. Ventricular cavity 1.5-2.0 NORMAL LVEF 60% 64% Paradoxical septal wall motion NORMAL 2-D : NORMAL VALVES--NORMAL LEFT VENTRICULAR CONTRACTILITY--ENLARGED LEFT ATRIAL CAVITY, NO EFFUSION, NO THROMBUS, NORMAL LEFT VENTRICLE SIZE M-MODE: MV: NORMAL AV: NORMAL TV: NORMAL PV: CHAMBER SIZE: BORDERLINE LEFT ATRIAL CAVITY ENLARGEMENT WALL MOTION: NORMAL PERICARDIUM: NORMAL INTERPRETATION: 1. BORDERLINE LEFT VENTRICULAR HYPERTROPHY 2. BORDERLINE ENLARGED LEFT ATRIAL CAVITY 3. NORMAL LEFT VENTRICULAR CONTRACTILITY 4. NORMAL VALVES MTDD
[2017-01-26] MEDS: ZOCOR PO SCH (17:16)
[2017-01-27] MEDS: SOLU-CORTEF 250 MG IVP SCH ×3 (04:31→20:34)
[2017-01-27 05:00] LABS: BASOPHILS % (AUTO) 0.1 % (0.0-3.0); EOSINOPHILS % (AUTO) 0.1 % (0.0-7.0); HEMATOCRIT 47.2 % (42.0-52.0); HEMOGLOBIN 15.3 g/dl (14.0-18.0); IMMATURE GRANULOCYTE % (AUTO) 0.5 % (0.0-5.0); LYMPHOCYTES # (AUTO) 1.3 K/uL (0.60-3.4); LYMPHOCYTES % (AUTO) 11.6 (10.0-50.0); MEAN CORPUSCULAR HEMOGLOBIN 28.6 pg (27.0-31.0); MEAN CORPUSCULAR HGB CONC 32.4 (31.8-35.4); MEAN CORPUSCULAR VOLUME 88.2 fl (80.0-94.0); MONOCYTES % (AUTO) 9.3 (0-10); NEUTROPHILS # (AUTO) 8.5 K/ul (2.0-6.9); NEUTROPHILS % (AUTO) 78.4; PLATELET COUNT 301 10^3/uL (140-440); RED BLOOD COUNT 5.35 10^6/ul (4.70-6.10); WHITE BLOOD COUNT 10.82 K/ul (4.2-10.2)
[2017-01-27 05:27] LABS: ALBUMIN 2.8 g/dL (3.4-5.0); ALBUMIN/GLOBULIN RATIO 0.93; ANION GAP 14.2; BILIRUBIN,TOTAL 0.43 mg/dL (0.00-1.20); BUN/CREATININE RATIO 33.33; CALCIUM 8.9 mg/dL (8.2-10.2); CREATININE 0.78 mg/dL (0.60-1.10); POTASSIUM 3.2 mmol/L (3.5-5.1); TOTAL PROTEIN 5.8 g/dL (5.8-8.1)
[2017-01-27] MEDS: XOPENEX 0.63 MG NEB SCH ×4 (05:29→22:35)
--- NOTE | 2017-01-27 08:11 | PN ---
DATE OF SERVICE: 01/24/17 SUBJECTIVE: 71 year old white male hospitalized with atrial fib/flutter with a rate of 170 with shortness of breath. The patient's atrial fib/flutter seems to be under control after two days. The patient has been on now Betapace 80mg twice a day which has helped along with Cardizem 120mg twice a day. The patient has no evidence of CHF. REVIEW OF SYSTEMS: CONSTITUTIONAL: No night sweats. No fatigue, malaise, lethargy. No fever or chills. HEENT: Eyes: No visual changes. No eye pain. No eye discharge. ENT: No runny nose. No epistaxis. No sinus pain. No sore throat. No odynophagia. No congestion. RESPIRATORY: No cough, no congestion. No hemoptysis. No shortness of breath. CARDIOVASCULAR: No angina symptoms. No CHF symptoms. No atypical chest pain for CAD. No palpitations. No orthopnea. GASTROINTESTINAL: No abdominal pain. No nausea or vomiting. No diarrhea or constipation. No hematemesis. No hematochezia. GENITOURINARY: No urgency. No frequency. No dysuria. No hematuria. No obstructive symptoms. No discharge. No pain. No significant abnormal bleeding. MUSCULOSKELETAL: No musculoskeletal pain; no joint swelling. NEUROLOGICAL: No headache. No neck pain. No syncope. No seizures. No dizziness. PSYCHIATRIC: Not anxious. No depression. No suicidal thoughts. No homicidal thoughts. SKIN: No rash. No lesions. No wounds. ENDOCRINE: No unexplained weight loss. No weight gain. HEMATOLOGIC/LYMPHATIC: No anemia. No purpura. No petechiae. No prolonged or excessive bleeding. No palpable lymph nodes. PHYSICAL EXAMINATION: HEENT: Head normocephalic, atraumatic. Eyes: Extraocular muscles are intact. Pupils are equal, round and reactive to light and accommodation. Ears: No lesions. Nose appeared normal. Throat: No exudate or erythema. NECK: Supple. No JVD, no carotid bruit. No lymphadenopathy or thyromegaly. LUNGS: Clear to auscultation. Percussion note normal. Chest symmetrical. HEART: S1, S2, no S3. No murmurs. No cyanosis or clubbing. No ascites. Pulses: Dorsalis pedis and posterior tibial pulses +1 to +2 both sides. ABDOMEN: Soft. Nontender. Bowel sounds active. No CVA tenderness. No mass felt. EXTREMITIES: No edema. Full range of motion of all extremities, equal. NEUROLOGIC: No focal deficit. Cranial nerves II through XII are grossly intact. No headache, no double vision or headache. SKIN: Not dry. Intact. Turgor - normal. LYMPHATIC: No palpable lymph nodes/no lymphedema. MUSCULOSKELETAL: Normal joints with no swelling. Muscle tone is normal. LABS: Hgb 17, hct 54, WBC 9,100 normal differential. The patient's T4 TSH is normal, BNP 248. Echo showed normal LV contractility, increase RV cavity size, LVH with borderline enlarged LA cavity. . ASSESSMENT: 1. The patient has severe chronic lung disease which is treated with steroids NEBS treatment. His lung functions seems to have improved clinically.That has a lot of affect on her atrial flutter/fib. PLAN: 1. The patient has been put on Apixaban 4mg twice a day. 2. Side effect of Apixaban has been discussed. 3. Eliquis discussed like GI bleed and intracranial bleed. 4. Education carried about about atrial fibrillation and its complication CONDITION: Stable. TIME SPENT: More than 30 minutes. Plan and coordination of the patient's care discussed in the presence of nurse. PAULIE
[2017-01-27] MEDS: SYMBICORT 160-4.5 MCG INHALER IH SCH ×2 (09:16→20:34)
[2017-01-27] MEDS: K-DUR PO SCH ×2 (09:16→20:34)
[2017-01-27] MEDS: CARDIZEM PO SCH ×2 (09:17→20:33)
[2017-01-27] MEDS: NON-FORMULARY MEDICATION (Fluticasone/Vilanterol [Breo Ellipta 100-25 Mcg Inh] 1 PUFF) INH SCH (09:17)
[2017-01-27] MEDS: HYDROCHLOROTHIAZIDE PO SCH (09:17)
[2017-01-27] MEDS: GLUCOPHAGE PO SCH ×2 (09:17→17:07)
[2017-01-27] MEDS: ELIQUIS PO SCH ×2 (09:17→20:33)
[2017-01-27] MEDS: BETAPACE PO SCH ×2 (09:18→20:33)
--- NOTE | 2017-01-27 11:31 | PCM.PROG ---
Attending Provider: ATTENDING PROVIDER: Dr. LIGIA LONDON This patient is seen with Astrid Campos, Nurse Practitioner. DATE OF SERVICE: 01/27/17 SUBJECTIVE: This 71 year old WHITE/ M was hospitalized 01/22/17. The patient is lying in bed, alert. The patient has been up and about. He is feeling better this morning. Telemetry shows atrial fibrillation however rate controlled. REVIEW OF SYSTEMS: CONSTITUTIONAL: Weakness. No night sweats. No fever or chills. HEENT: Eyes: No visual changes. No eye pain. No eye discharge. ENT: No runny nose. No epistaxis. No sinus pain. No odynophagia. No congestion. RESPIRATORY: Cough, dry. No congestion. No hemoptysis. Shortness of breath. CARDIOVASCULAR: No angina symptoms. No CHF symptoms. No atypical chest pain for CAD. No palpitations. No orthopnea.. GASTROINTESTINAL: No abdominal pain. No nausea or vomiting. No diarrhea or constipation. No hematemesis. No hematochezia. GENITOURINARY: No urgency. No frequency. No dysuria. No hematuria. No obstructive symptoms. No discharge. No pain. No significant abnormal bleeding. MUSCULOSKELETAL: No musculoskeletal pain; no joint swelling. NEUROLOGICAL: Awake, alert, oriented to time, place and person. No headache. No neck pain. No syncope. No seizures. No dizziness. PSYCHIATRIC: Not anxious. No depression. No suicidal thoughts. No homicidal thoughts. SKIN: No rash. No lesions. No wounds. ENDOCRINE: No unexplained weight loss. No weight gain. HEMATOLOGIC/LYMPHATIC: No anemia. No purpura. No petechiae. No prolonged or excessive bleeding. No palpable lymph nodes. PHYSICAL EXAMINATION: GENERAL: The patient is awake, alert and oriented, lying in bed in no distress. VITAL SIGNS: Temperature 97.7 F, Pulse 54, Respiratory Rate 22, BP 123/76, Pulse Ox 90% HEENT: Head normocephalic, atraumatic. Eyes: Extraocular muscles are intact. Pupils are equal, round and reactive to light and accommodation. Ears: No lesions. Nose appeared normal. Throat: No exudate or erythema. NECK: Supple. No JVD, no carotid bruit. No lymphadenopathy or thyromegaly. LUNGS: Diminished breath sounds bilaterally with expiratory rub. Clear to auscultation. Percussion note normal. Chest symmetrical. HEART: Irregular heart rate. S1, S2, no S3. No murmurs. No cyanosis or clubbing. No ascites. Pulses: Dorsalis pedis and posterior tibial pulses +1 to +2 both sides. ABDOMEN: Soft. Non-tender. Bowel sounds active. No CVA tenderness. No mass felt. EXTREMITIES: No edema. Full range of motion of all extremities, equal. NEUROLOGIC: No focal deficit. Cranial nerves II through XII are grossly intact. No headache, no double vision or headache. SKIN: Not dry. Intact. Turgor-normal. LYMPHATIC: No palpable lymph nodes/no lymphedema. MUSCULOSKELETAL: Normal joints with no swelling. Muscle tone is normal. LAB REVIEW: 01/27/17 04:30 01/27/17 04:30 01/27/17 04:30: Sodium 145, Potassium 3.2 L, Chloride 103, Carbon Dioxide 31, Anion Gap 14.2, BUN 26 H, Creatinine 0.78, Estimated GFR (MDRD) 98.00, BUN/ Creatinine Ratio 33.33, Glucose 127 H, Calcium 8.9, Total Bilirubin 0.43, AST 17 , ALT 23, Alkaline Phosphatase 47 L, Total Protein 5.8, Albumin 2.8 L, Globulin 3.0, Albumin/Globulin Ratio 0.93 01/27/17 04:30: WBC 10.82 H, RBC 5.35, Hgb 15.3, Hct 47.2, MCV 88.2, MCH 28.6, MCHC 32.4, RDW Coeff of Iván 14.4, Plt Count 301, Immature Gran % (Auto) 0.5, Neut % (Auto) 78.4, Lymph % (Auto) 11.6, [place] % (Auto) 9.3, Eos % (Auto) 0.1, Baso % (Auto) 0.1, Immature Gran # (Auto) 0.1, Neut # 8.5 H, Lymph # 1.3, [place] # 1.0, Eos # 0.0, Baso # 0.0 01/26/17 08:45: Puncture Site Rrad, O2 Saturation 72.0 L, ABG pH 7.439, ABG pCO2 44.6, ABG pO2 37.0 L*, ABG HCO3 30.2 H, ABG Total CO2 32 H, ABG Base Excess 6 H, Tom Test +, FiO2 % 21.0 ASSESSMENT: 1. Atrial fibrillation with RVR 2. COPD 3. Hypokalemia 4. Shortness of breath 5. Dyslipidemia 6. Diabetes mellitus type 2 PLAN: 1. Potassium 40 mg b.i.d. 2. Chest x-ray repeat Plan and coordination of the patient's care discussed in the presence of Compliance Spec and nurse. CONDITION: Stable SCRIBED BY: MARLIN GRAY Server Service Assistant scribed while in presence of service performed by Dr. London/Astrid Campos APRN on 01/27/17 ([id number])
--- NOTE | 2017-01-27 12:40 | DI ---
EXAM: CHEST FRONTAL AND LATERAL VIEWS HISTORY: Coughing, shortness of breath. COMPARISON: 06/08/2014 FINDINGS: Normal heart size. Lungs are hyperinflated. Chronic-appearing interstitial changes diffu sely. Biapical irregular pleural thickening, greater on the right may be stable. No definite acute infiltrate. No pleural fluid or vascular congestion. IMPRESSION: Chronic obstructive pulmonary disease is suspected. Correlate clinically. No definite acute infiltr ate. Biapical irregular pleuroparenchymal thickening. Probable scarring around the right infrahilar space. Given findings, periodic correlation with CT thorax may be beneficial.
--- NOTE | 2017-01-27 13:49 | PN ---
DATE OF SERVICE: 01/25/17 SUBJECTIVE: 71 year old white male hospitalized with atrial flutter with rapid ventricle response. The patient has been on Cardizem and Betapace. Lanoxin has been discontinue. The patient was in atrial fibrillation but now the patient is in sinus rhythm today. Rate around 60-65 per minute. The patient says that he is feeling a lot better. His initiation factor for atrial flutter was severe chronic lung disease. The patient has been steroids, NEBS treatment. The patient has been avoided to take inhalers at home because of financial reasons. REVIEW OF SYSTEMS: CONSTITUTIONAL: No night sweats. No fatigue, malaise, lethargy. No fever or chills. He says that he is feeling a lot better. HEENT: Eyes: No visual changes. No eye pain. No eye discharge. ENT: No runny nose. No epistaxis. No sinus pain. No sore throat. No odynophagia. No congestion. RESPIRATORY: No cough, no congestion. No hemoptysis. No shortness of breath. CARDIOVASCULAR: No angina symptoms. No CHF symptoms. No atypical chest pain for CAD. No palpitations. No orthopnea. GASTROINTESTINAL: No abdominal pain. No nausea or vomiting. No diarrhea or constipation. No hematemesis. No hematochezia. GENITOURINARY: No urgency. No frequency. No dysuria. No hematuria. No obstructive symptoms. No discharge. No pain. No significant abnormal bleeding. MUSCULOSKELETAL: No musculoskeletal pain; no joint swelling. NEUROLOGICAL: No headache. No neck pain. No syncope. No seizures. No dizziness. PSYCHIATRIC: Not anxious. No depression. No suicidal thoughts. No homicidal thoughts. SKIN: No rash. No lesions. No wounds. ENDOCRINE: No unexplained weight loss. No weight gain. HEMATOLOGIC/LYMPHATIC: No anemia. No purpura. No petechiae. No prolonged or excessive bleeding. No palpable lymph nodes. PHYSICAL EXAMINATION: GENERAL: The patient is oriented to time, place and person. HEENT: Head normocephalic, atraumatic. Eyes: Extraocular muscles are intact. Pupils are equal, round and reactive to light and accommodation. Ears: No lesions. Nose appeared normal. Throat: No exudate or erythema. NECK: Supple. No JVD, no carotid bruit. No lymphadenopathy or thyromegaly. LUNGS: Decreased breath sounds but good air entry. No wheezing at all. Clear to auscultation. Percussion note normal. Chest symmetrical. HEART: S1, S2, no S3. No murmurs. No cyanosis or clubbing. No ascites. Pulses: Dorsalis pedis and posterior tibial pulses +1 to +2 both sides. ABDOMEN: Soft. Nontender. Bowel sounds active. No CVA tenderness. No mass felt. EXTREMITIES: No edema. Full range of motion of all extremities, equal. NEUROLOGIC: No focal deficit. Cranial nerves II through XII are grossly intact. No headache, no double vision or headache. SKIN: Not dry. Intact. Turgor - normal. LYMPHATIC: No palpable lymph nodes/no lymphedema. MUSCULOSKELETAL: Normal joints with no swelling. Muscle tone is normal. ASSESSMENT: 1. Atrial flutter/fibrillation resolved 2. Severe chronic lung disease 3. Hypertension PLAN: 1. Advised to lose weight 2. Pulmonary rehab advised 3. Advised to take all his medication regularly 4. Steroid side effects with avascular necrosis of the femoral bones, Cataracts and osteoporosis all discussed 5. Atrial flutter/fibrillation complications discussed. The patient says that if he is in regular rhythm it isn't going to take NORVAL blood thinner or Coumadin. If he goes back into again consider that otherwise he would take a chance. It is to be noted that the patient's left atrial size is 4cm which is barely over normal. CONDITION:Stable TIME SPENT: More than 30 minutes. Plan and coordination of the patient's care discussed in the presence of nurse. PAULIE
[2017-01-27] MEDS: ZOCOR PO SCH (17:07)
[2017-01-28] MEDS: SOLU-CORTEF 250 MG IVP SCH ×2 (04:52→13:42)
[2017-01-28] MEDS: XOPENEX 0.63 MG NEB SCH ×2 (05:00→11:27)
[2017-01-28 07:41] LABS: BASOPHILS % (AUTO) 0.1 % (0.0-3.0); HEMATOCRIT 48.3 % (42.0-52.0); HEMOGLOBIN 15.5 g/dl (14.0-18.0); IMMATURE GRANULOCYTE % (AUTO) 0.6 % (0.0-5.0); LYMPHOCYTES % (AUTO) 9.3 (10.0-50.0); MEAN CORPUSCULAR HEMOGLOBIN 28.4 pg (27.0-31.0); MEAN CORPUSCULAR HGB CONC 32.1 (31.8-35.4); MEAN CORPUSCULAR VOLUME 88.5 fl (80.0-94.0); MONOCYTES # (AUTO) 0.7 K/uL (0.4-2.0); MONOCYTES % (AUTO) 6.6 (0-10); NEUTROPHILS # (AUTO) 8.9 K/ul (2.0-6.9); NEUTROPHILS % (AUTO) 83.4; PLATELET COUNT 306 10^3/uL (140-440); RED BLOOD COUNT 5.46 10^6/ul (4.70-6.10); WHITE BLOOD COUNT 10.72 K/ul (4.2-10.2)
[2017-01-28 08:00] LABS: ALBUMIN 2.9 g/dL (3.4-5.0); ALBUMIN/GLOBULIN RATIO 0.97; ANION GAP 11.7; BILIRUBIN,TOTAL 0.57 mg/dL (0.00-1.20); CALCIUM 8.8 mg/dL (8.2-10.2); CREATININE 0.83 mg/dL (0.60-1.10); POTASSIUM 3.7 mmol/L (3.5-5.1); TOTAL PROTEIN 5.9 g/dL (5.8-8.1)
[2017-01-28 08:01] LABS: BUN/CREATININE RATIO 24.09
[2017-01-28] MEDS: HYDROCHLOROTHIAZIDE PO SCH (09:20)
[2017-01-28] MEDS: SYMBICORT 160-4.5 MCG INHALER IH SCH (09:20)
[2017-01-28] MEDS: K-DUR PO SCH (09:20)
[2017-01-28] MEDS: NON-FORMULARY MEDICATION (Fluticasone/Vilanterol [Breo Ellipta 100-25 Mcg Inh] 1 PUFF) INH SCH (09:20)
[2017-01-28] MEDS: ELIQUIS PO SCH (09:21)
[2017-01-28] MEDS: CARDIZEM PO SCH (09:21)
[2017-01-28] MEDS: GLUCOPHAGE PO SCH (09:21)
[2017-01-28] MEDS: BETAPACE PO SCH (09:22)
[2017-01-28 09:47] VITALS: BP 158/80; TEMP 97.8
--- NOTE | 2017-01-28 09:50 | CT ---
EXAM: CT chest with contrast HISTORY: Shortness of breath and cough COMPARISON: CT all Chest x-ray 01/27/2017 and 06/08/2014 TECHNIQUE: Serial axial images of the chest were obtained after 75 ml of Omnipaque IV contrast was a dministered. These were obtained from the lung apices to the upper abdomen. FINDINGS: The thyroid is normal. Visualized vessels are unremarkable. There is no dissection, aneu rysm or stenosis. The heart is normal in size without pericardial effusion. There are multiple medi astinal and hilar lymph nodes which are nonpathologically enlarged. There is no pneumothorax. Trace right and small left pleural effusion is present. There is minimal apical pleural thickening. There is scattered small airways thickening in the bilateral lower lobes with no discrete consolidation identified. There is a ground-glass nodule in the right middle lobe o n image 41 measuring 0.4 cm in diameter. There is mild emphysema. There is a 0.4 cm ground-glass no dule in the superior segment of the left lower lobe on image 26. The central airways are patent. Limited views of the upper abdomen are unremarkable. The osseous structures demonstrate mild degener ative disease. IMPRESSION: 1. Trace right and small left pleural effusions with scattered small airways thickening, most pronou nced in bilateral lower lobe suggestive of small airways infection/inflammation. There is no acute c onsolidative pneumonia. 2. Mild apical pleural thickening with findings suggestive of mild chronic obstructive pulmonary dis ease. 3. Ground-glass nodule in the right middle lobe and left lower lobe may be postinflammatory. Follow -up CT in 3 - 6 months is recommended.
--- NOTE | 2017-01-28 09:51 | CM.DICTOOL ---
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) FORMER SMOKER NONE SINCE 01/23/09 CATARACT EXTRACTION, 2010 TONSILLECTOMY LAST VITALS Temp Pulse Resp BP Pulse Ox 97.5 F L 58 L 20 130/80 91 L 01/28/17 05:14 01/28/17 05:14 01/28/17 05:14 01/28/17 05:14 01/28/17 05:14 ACTIVE HOME MEDICATIONS Albuterol Sulfate (Proair Hfa) 2 puff IH QID PRN PRN Reason: SOA Hydrochlorothiazide (Hydrochlorothiazide) 12.5 mg PO DAILY [facility] Last Admin: 01/27/17 09:17 Dose: 12.5 mg Metformin HCl (Glucophage) 1,000 mg PO BIDWM [facility] Last Admin: 01/27/17 17:07 Dose: 1,000 mg Fluticasone/Vilanterol [Breo Ellipta 100-25 Mcg Inh] 1 puff INH DAILY [facility] Last Admin: 01/27/17 09:17 Dose: 1 puff Simvastatin (Zocor) 80 mg PO QPM [facility] Last Admin: 01/27/17 17:07 Dose: 80 m ALLERGIES No Known Allergies Allergy (Unverified 01/22/17 12:07) NEW PRESCRIPTIONS: ELIQUIS 5 MG, TAKE ONE TABLET BY MOUTH TWICE DAILY (OFFICE SAMPLES X6 WEEKS) K-TAB 20 MEQ, TAKE ONE TABLET BY MOUTH TWICE DAILY FOR 5 DAYS PREDNISONE 10 MG, TAKE ONE TAB BY MOUTH WITH FOOD TWICE DAILY X7 DAYS, THEN DAILY FOR 7 DAYS CARDIZEM 120 MG, TAKE ONE TABLET BY MOUTH EVERY 12 HOURS BETAPACE 80 MG, TAKE ONE TABLET BY MOUTH TWICE DAILY BUDESONIDE/FORMOTEROL FUMARATE (SYMBICORT 160-4.5 MCG) 2 PUFFS IH TWICE DAILY ( HOSP SUPPLY) SMOKING: FORMER SMOKER NONE SINCE 03/26/08 DISEASE SPECIFIC EDUCATION: -ATRIAL FIBRILLATION WITH RVR -HOME MEDICATIONS -NEW PRESCRIPTIONS INCLUDING ELIQUIS AND RISK FACTORS ASSOCIATED WITH USE, PREDNISONE AND RISKS ASSOCIATED WITH TAP GRINDER USE -FOLLOW UP -ACTIVITY -OXYGEN USE LAB REVIEW: 01/28/17 07:10 01/28/17 07:10 01/28/17 07:10: Sodium 144, Potassium 3.7, Chloride 100, Carbon Dioxide 36 H, Anion Gap 11.7, BUN 20 H, Creatinine 0.83, Estimated GFR (MDRD) 92.00, BUN/ Creatinine Ratio 24.09, Glucose 137 H, Calcium 8.8, Total Bilirubin 0.57, AST 19 , ALT 29, Alkaline Phosphatase 45 L, Total Protein 5.9, Albumin 2.9 L, Globulin 3.0, Albumin/Globulin Ratio 0.97 01/28/17 07:10: WBC 10.72 H, RBC 5.46, Hgb 15.5, Hct 48.3, MCV 88.5, MCH 28.4, MCHC 32.1, RDW Coeff of Iván 14.2, Plt Count 306, Immature Gran % (Auto) 0.6, Neut % (Auto) 83.4, Lymph % (Auto) 9.3 L, [place] % (Auto) 6.6, Eos % (Auto) 0.0, Baso % (Auto) 0.1, Immature Gran # (Auto) 0.1, Neut # 8.9 H, Lymph # 1.0, Sebastian # 0.7, Eos # 0.0, Baso # 0.0 PLAN: DISCHARGE HOME TODAY RETURN TO SEE DR. LONDON ON 01/30/17 AT 3:15 P.M. [facility] WILL DELIVER YOUR OXYGEN AND SUPPLIES FOR USE AT HOME [phone] RESUME YOUR HOME MEDICATIONS PER LIST PROVIDED BY THE NURSING STAFF NEW PRESCRIPTIONS ELIQUIS 5 MG, TAKE ONE TABLET BY MOUTH TWICE DAILY (OFFICE SAMPLES X6 WEEKS) K-TAB 20 MEQ, TAKE ONE TABLET BY MOUTH TWICE DAILY FOR 5 DAYS PREDNISONE 10 MG, TAKE ONE TAB BY MOUTH WITH FOOD TWICE DAILY X7 DAYS, THEN DAILY FOR 7 DAYS CARDIZEM 120 MG, TAKE ONE TABLET BY MOUTH EVERY 12 HOURS BETAPACE 80 MG, TAKE ONE TABLET BY MOUTH TWICE DAILY BUDESONIDE/FORMOTEROL FUMARATE (SYMBICORT 160-4.5 MCG) 2 PUFFS IH TWICE DAILY ACTIVITY GET PLENTY OF REST AT HOME. GRADUALLY INCREASE YOUR ACTIVITY LEVEL ACCORDING TO YOUR TOLERATION DIET CONSISTENT CARBS HEALTHY HEART SUMMARY THE PATIENT IS ALERT AND ORIENTED X3. HE CURRENTLY RESIDES AT HOME WITH HIS SPOUSE. BOTH HIS SPOUSE AND DAUGHTER ARE SUPPORTIVE OF HIS NEEDS IN TIMES OF ILLNESS. HE HAS BEEN INDEPENDENT WITH ADL'S. AT HOME HE HAS A GLUCOMETER AND BLOOD SUGAR TESTING SUPPLIES. HE WILL REQUIRE HOME OXYGEN AFTER THIS HOSPITAL STAY. [facility] WILL PROVIDE THE OXYGEN AND SUPPLIES INCLUDING A PORTABLE SYSTEM FOR MR. PEARSON TO USE AT DISCHARGE AND A CONCENTRATOR FOR HOME USE. THE PAIENT DESIRES TO RETURN HOME AT DISCHARGE. THE SKIN TURGOR IS INTACT AND WITHOUT DECUBITUS ULCERS. HYDRATION AND NUTRITIONAL STATUS ARE IMPROVED. THE CARDIAC RHYTHM HAS CONVERTED TO SINUS BRADYCARDIA WITH BUNDLE BRANCH BLOCK. V/S ARE STABLE AND WITHIN ACCEPTABLE RANGES. OXYGEN SATURATIONS ARE 90-96% WITH USE OF THE SUPPLEMENTAL OXYGEN AT 2L /NC. MR. PEARSON IS AWARE AND AGREEABLE FOR DISCHARGE TODAY. WE WILL PROVIDE OFFICE SAMPLES IF AVAILABLE FOR THE NEW MEDICATIONS PRESCRIBED. HE WILL BE GIVEN THE HOSPITAL SUPPLY OF THE SYMBICORT INHALER TO USE AT HOME AND A SIX WEEK SUPPLY OF ELIQUIS FROM THE OFFICE. CURRENT CODE STATUS DO NOT INTUBATE CPR ONLY LIGIA LONDON M.D.
--- NOTE | 2017-01-28 10:54 | PCM.PROG ---
Attending Provider: ATTENDING PROVIDER: Dr. LIGIA LONDON DATE OF SERVICE: 01/28/17 SUBJECTIVE: This 71 year old WHITE/ M was hospitalized 01/22/17. The patient is hospitalized with atrial flutter with rapid ventricular response. The patient was cardioverted in ER and went back into flutter. Underlying problem is severe chronic lung disease and chronic bronchitis aggressively treated with nebs and steroids. The patient is still hypoxic with exertion and will be on home oxygem. The patient goes in and out of sinus rhythm with atrial fibrillation. Left atrial size is close to 4 cm. CHADS2 VASC score is 2. The patient will be on Eliquis. Discussed side effects of GI bleed and intracranial bleed. The patient voices understanding and is in agreement. The patient is short of breath on exertion but is in no distress at the present time. Sinus rhythm with rate of 60/min. REVIEW OF SYSTEMS: CONSTITUTIONAL: No night sweats. No fatigue, malaise, lethargy. No fever or chills. HEENT: Eyes: No visual changes. No eye pain. No eye discharge. ENT: No runny nose. No epistaxis. No sinus pain. No odynophagia. No congestion. RESPIRATORY: No cough, no congestion. No hemoptysis. Positive for shortness of breath on exertion but is in no distress at the present time. CARDIOVASCULAR: No angina symptoms. No evidence of CHF symptoms. No atypical chest pain for CAD. No palpitations. No orthopnea.. GASTROINTESTINAL: No abdominal pain. No nausea or vomiting. No diarrhea or constipation. No hematemesis. No hematochezia. GENITOURINARY: No urgency. No frequency. No dysuria. No hematuria. No obstructive symptoms. No discharge. No pain. No significant abnormal bleeding. MUSCULOSKELETAL: No musculoskeletal pain; no joint swelling. NEUROLOGICAL: Awake, alert, oriented to time, place and person. No headache. No neck pain. No syncope. No seizures. No dizziness. PSYCHIATRIC: Not anxious. No depression. No suicidal thoughts. No homicidal thoughts. SKIN: No rash. No lesions. No wounds. ENDOCRINE: No unexplained weight loss. No weight gain. HEMATOLOGIC/LYMPHATIC: No anemia. No purpura. No petechiae. No prolonged or excessive bleeding. No palpable lymph nodes. PHYSICAL EXAMINATION: GENERAL: The patient is awake, alert and oriented, lying/sitting in bed in no distress. VITAL SIGNS: Temperature 97.5 F, Pulse 58, Respiratory Rate 20, BP 130/80, Pulse Ox 91% HEENT: Head normocephalic, atraumatic. Eyes: Extraocular muscles are intact. Pupils are equal, round and reactive to light and accommodation. Ears: No lesions. Nose appeared normal. Throat: No exudate or erythema. NECK: Supple. No JVD, no carotid bruit. No lymphadenopathy or thyromegaly. LUNGS: Decreased breath sounds, no wheeze. Clear to auscultation. Percussion note normal. Chest symmetrical. HEART: S1, S2, no S3. No murmurs. No cyanosis or clubbing. No ascites. Pulses: Dorsalis pedis and posterior tibial pulses +1 to +2 both sides. ABDOMEN: Soft. Non-tender. Bowel sounds active. No CVA tenderness. No mass felt. EXTREMITIES: No pedal edema. Full range of motion of all extremities, equal. NEUROLOGIC: No focal deficit. Cranial nerves II through XII are grossly intact. No headache, no double vision or headache. SKIN: Not dry. Intact. Turgor-normal. LYMPHATIC: No palpable lymph nodes/no lymphedema. MUSCULOSKELETAL: Normal joints with no swelling. Muscle tone is normal. LAB REVIEW: 01/28/17 07:10 01/28/17 07:10 01/28/17 07:10: Sodium 144, Potassium 3.7, Chloride 100, Carbon Dioxide 36 H, Anion Gap 11.7, BUN 20 H, Creatinine 0.83, Estimated GFR (MDRD) 92.00, BUN/ Creatinine Ratio 24.09, Glucose 137 H, Calcium 8.8, Total Bilirubin 0.57, AST 19 , ALT 29, Alkaline Phosphatase 45 L, Total Protein 5.9, Albumin 2.9 L, Globulin 3.0, Albumin/Globulin Ratio 0.97 01/28/17 07:10: WBC 10.72 H, RBC 5.46, Hgb 15.5, Hct 48.3, MCV 88.5, MCH 28.4, MCHC 32.1, RDW Coeff of Iván 14.2, Plt Count 306, Immature Gran % (Auto) 0.6, Neut % (Auto) 83.4, Lymph % (Auto) 9.3 L, [place] % (Auto) 6.6, Eos % (Auto) 0.0, Baso % (Auto) 0.1, Immature Gran # (Auto) 0.1, Neut # 8.9 H, Lymph # 1.0, [place] # 0.7, Eos # 0.0, Baso # 0.0 ASSESSMENT: 1. Atrial flutter fib resolved. Underlying problem could be severe chronic lung disease triggering that. 2. Overweight sedentary lifestyle. 3. Dyslipidemia. 4. Diabetes mellitus. PLAN: 1. Discharge home 2. Prednisone 10 mg b.i.d. for 7 days then one a day for 7 days 3. Pulmonary rehab recommended 4. Advised to lose 10 lbs 5. Oxygen needed for home discussed with patient, who is willing to comply with oxygen recommendations. Case Management will arrange for home oxygen to be delivered prior to discharge. 6. CT scan of chest pending. 7. Nebulizer at home to help with shortness of air. Plan and coordination of the patient's care discussed in the presence of Feather Sawyer and nurse. CONDITION: Stable SCRIBED BY: MARLIN GRAY Seasoning Mixer scribed while in presence of service performed by Dr. LIGIA LONDON on 01/28/17 ([id number])
--- NOTE | 2017-01-28 11:35 | PN ---
DATE OF SERVICE: 01/26/17 SUBJECTIVE: When seen this morning the patient feeling a lot better. His breathing seems to be a lot better at rest. He is up and about. REVIEW OF SYSTEMS: CONSTITUTIONAL: No night sweats. No fatigue, malaise, lethargy. No fever or chills. HEENT: Eyes: No visual changes. No eye pain. No eye discharge. ENT: No runny nose. No epistaxis. No sinus pain. No sore throat. No odynophagia. No congestion. RESPIRATORY: No cough, no congestion. No hemoptysis. No shortness of breath. CARDIOVASCULAR: No angina symptoms. No CHF symptoms. No atypical chest pain for CAD. No palpitations. No orthopnea. No PND. GASTROINTESTINAL: No abdominal pain. No nausea or vomiting. No diarrhea or constipation. No hematemesis. No hematochezia. GENITOURINARY: No urgency. No frequency. No dysuria. No hematuria. No obstructive symptoms. No discharge. No pain. No significant abnormal bleeding. MUSCULOSKELETAL: No musculoskeletal pain; no joint swelling. NEUROLOGICAL: No headache. No neck pain. No syncope. No seizures. No dizziness. PSYCHIATRIC: Not anxious. No depression. No suicidal thoughts. No homicidal thoughts. SKIN: No rash. No lesions. No wounds. ENDOCRINE: No unexplained weight loss. No weight gain. HEMATOLOGIC/LYMPHATIC: No anemia. No purpura. No petechiae. No prolonged or excessive bleeding. No palpable lymph nodes. PHYSICAL EXAMINATION: GENERAL: The patient is oriented to time, place and person. VITAL SIGNS: Temperature 97.3, pulse 70, respiratory rate 16, blood pressure 137/74 and pulse ox 90% on room air. HEENT: Head normocephalic, atraumatic. Eyes: Extraocular muscles are intact. Pupils are equal, round and reactive to light and accommodation. Ears: No lesions. Nose appeared normal. Throat: No exudate or erythema. NECK: Supple. No JVD, no carotid bruit. No lymphadenopathy or thyromegaly. LUNGS: Decreased breath sounds but clear to auscultation. Percussion note normal. Chest symmetrical. HEART: S1, S2, no S3. No murmurs. No cyanosis or clubbing. No ascites. Pulses: Dorsalis pedis and posterior tibial pulses +1 to +2 both sides. ABDOMEN: Soft. Nontender. Bowel sounds active. No CVA tenderness. No mass felt. EXTREMITIES: No edema. Full range of motion of all extremities, equal. NEUROLOGIC: No focal deficit. Cranial nerves II through XII are grossly intact. No headache, no double vision or headache. SKIN: Not dry. Intact. Turgor - normal. LYMPHATIC: No palpable lymph nodes/no lymphedema. MUSCULOSKELETAL: Normal joints with no swelling. Muscle tone is normal. LABS: Hgb 15, hct 47, WBC 10,000 normal differential, creatinine 0.7, BUN 26, potassium 3.3 ASSESSMENT: 1. Atrial flutter/fibrillation seems to have resolved the patient is in intermittent sinus rhythm and atrial fibrillation 2. Chronic lung disease 3. Hypertension 4. Dyslipidemia PLAN: 1. Continue to improve breathing capacity 2. Advised pulmonary rehab which he has declined 3. Atrial fibrillation complications discussed and the patient is already on Eliquis 4. Will do ABG on room air. 5. Will do 3 step. CONDITION: Stable The patient was seen and examined with Nurse Practitioner. TIME SPENT: More than 30 minutes. Plan and coordination of the patient's care discussed in the presence of nurse. PAULIE
--- NOTE | 2017-01-30 13:52 | PN ---
DATE OF SERVICE: 01/27/17 SUBJECTIVE: 71 year old white male hospitalized with atrial flutter/fib now the patient is in sinus rhythm this morning. The patient is feeling a lot better. His lung functions are poor. Explained about his findings and advised to lose weight at least 15-20 pounds and advised pulmonary rehab. The patient is on Eliquis, GI bleed, intracranial bleed discussed. CONDITION: Stable The patient was seen and examined with Nurse Practitioner. TIME SPENT: More than 30 minutes. Plan and coordination of the patient's care discussed in the presence of nurse. PAULIE
--- NOTE | 2017-02-02 09:08 | DS ---
DATE OF SERVICE: 01/28/17 FINAL DIAGNOSIS: 1. Atrial flutter with RVR 2. Hypokalemia 3. Dyslipidemia 4. Diabetes Mellitus type 2 5. COPD, Moderate to severe (PFT, 06/13/14) 6. Bilateral hydrocele (U/S, 04/23/15) 7. Former smoker, none since 01/23/09 8. Cataract extraction, 2010 9. Tonsillectomy LAST VITALS: Temperature 97.5, pulse 58, respiratory rate 20, blood pressure 130/80 and pulse ox 91%. DISCHARGE INSTRUCTIONS: Discharge home today. Return to see Dr. Youssef on 01/30/17 at 3:15pm. [facility] will Deliver Oxygen and supplies for use at home. Resume home medications as per list provided by the nursing staff. MEDICATIONS AT DISCHARGE: ProAir 2 puff IH four times a day PRN Hydrochlorothiazide 12.5mg PO daily Glucophage 1,000mg PO twice a day Breo Ellipta 10-25mcg one puff INH daily Zocor 80mg PO QPM ALLERGIES: No known allergies NEW PRESCRIPTIONS: Eliquis 5mg take one tablet by mouth twice daily (office samples x6 weeks) K-tab 20meq take one tablet by mouth twice daily for 5 days Prednisone 10mg take one tablet by mouth with food twice daily x7 days, then daily for 7 days. Cardizem 120mg take one tablet by mouth every 12 hours Betapace 80mg take one tablet by mouth twice daily Budesonide/Formoterol Fumarate( Symbicort 160/4.5mCG) 2 puffs IH twice daily ( [facility]) DIET INSTRUCTIONS: Consistent Carbohydrates Healthy heart ACTIVITY: Get plenty of rest at home. Gradually increase activity level according to toleration. SMOKING: Former smoker, none since 03/26/08 DISEASE SPECIFIC EDUCATION: Atrial fibrillation with RVR Home medications New prescriptions including Eliquis and risk factors associated with use, Prednisone and risks associated with intermediate use. Followup Activity Oxygen use. HOSPITAL COURSE: 71 year old white male hospitalized with atrial flutter with rate of 170 per minute. The patient had relative hypotension with 90 systolic. Main complaint was shortness of breath. He didn't have any chest pain or chest tightness. The duration of symptoms were more than 24 hours. The patient had atrial flutter. The patient was cardioverted by ER physician with 15 joules within an hour the patient went back into the atrial flutter. His problem with the flutter is likely coming from his severe chronic lung disease. His Fev1 is less than 500cc with broncho spasm and chronic bronchitis. The patient was treated with IV steroids and aggressive NEBS treatment. His pulmonary status improved and he is going to be on home oxygen. The patient was put on Betapace and Cardizem along with Lanoxin. Blood pressure is now 130/80. At the time of discharge he is 120mg twice a day of Cardizem and 80mg twice a day of Betapace. He is mostly in sinus rhythm but at time he goes into atrial fibration. His left atrial size is 4cm. His LV contractility is normal. He has right ventricle cavity enlargement with LVH. Valvular structures are normal. His CHADS2 Vasc score is 2. On discharge the patient was advised pulmonary rehab, advised to lose 15-20 pounds , advised to walk everyday like a mile a day, add the oxygen as much as he could and also advised sleep study for sleep apnea. Atrial fibrillation complications discussed. The patient is agreeable to take Eliquis. Discussed all the NORVAL blood thinners and Coumadin. The patient was explained about GI bleed and intracranial bleed and complication of NORVAL blood thinners. Samples were given to him. He is to be seen in 5 days. Problem is going to be the cost. He may end up on Coumadin. The patient is noncompliant. TIME SPENT: More than 60 minutes. [facility]
--- NOTE | 2017-02-02 09:20 | PN ---
01/22/17: Level 5 01/23/17: Extensive 01/24/17: Intermediate 01/25/17: Intermediate 01/26/17: Intermediate 01/27/17: Intermediate 01/28/17: D as in discharge MTDD
== END 2017-01-28 13:35 | disposition home or self-care (01) | DRG 310 ==
LOC: ED 12:03 → SCU 15:54
PROVIDERS: ADMIT Internal Medicine; ATTEND Internal Medicine
DX: I48.92 Unspecified atrial flutter (principal); J44.9 Chronic obstructive pulmonary disease, unspecified; I48.91 Unspecified atrial fibrillation; I51.7 Cardiomegaly; R00.2 Palpitations; I49.8 Other specified cardiac arrhythmias; R00.0 Tachycardia, unspecified; R06.02 Shortness of breath; I10 Essential (primary) hypertension; I12.9 Hypertensive chronic kidney disease with stage 1 through stage 4 chronic kidney disease, or unspecified chronic kidney disease; N18.3 Chronic kidney disease, stage 3 (moderate); E11.9 Type 2 diabetes mellitus without complications; E78.5 Hyperlipidemia, unspecified; E66.9 Obesity, unspecified; I25.2 Old myocardial infarction; N43.2 Other hydrocele; H40.9 Unspecified glaucoma; I65.29 Occlusion and stenosis of unspecified carotid artery; E87.6 Hypokalemia; Z72.3 Lack of physical exercise; Z79.84 Long term (current) use of oral hypoglycemic drugs; Z87.891 Personal history of nicotine dependence; Z79.899 Other long term (current) drug therapy
CPT/HCPCS: 36415; 80053; 80162; 82550; 82803; 82962; 83880; 84439; 84443; 84484; 85025; 85610; 85730; 93005; 93010; 94640; 94761; 96361; 96375; 99291

== ENCOUNTER 2017-02-11 21:04 | Inpatient (IN) ==
[2017-02-11] MEDS ORDERED: LASIX IVP STA (21:07)
[2017-02-11] MEDS ORDERED: SOLU-MEDROL 125 MG IVP STA (21:07)
[2017-02-11] MEDS ORDERED: DUONEB NEB STA (21:07)
--- NOTE | 2017-02-11 21:11 | ED.PDOC ---
General ED Provider: Dr. UMANG ADAN Chief Complaint: Shortness of Air Stated Complaint: Worsening shortness of breath for 4-5 days, coughing, congested. was released from the hospital on 12-6 Time Seen by Physician: 21:16 Mode of Arrival: Ambulance Information Source: Patient, EMT Primary Care Provider: LIGIA LONDON Nursing and Triage Documentation Reviewed and Agree: Yes Reviewed sepsis parameters & appropriate labs ordered?: Yes System Inflammatory Response Syndrome: Pulse >90 BPM, Resp >20/Minute Sepsis Protocol: For patient's 13 years and over: Temp is 96.8 and below OR 101 and greater Pulse >90 BPM Resp >20/minute Acutely Altered Mental Status Are patient's symptoms suggestive of a new infection, such as: -Pneumonia -Skin, Soft Tissue -Endocarditis -UTI -Bone, Joint Infection -Implantable Device -Acute Abdominal Infection -Wound Infection -Meningitis -Blood Stream Catheter Infection -Unknown Respiratory Complaint Exam - Shortness of Air Complaint/Exam Symptoms Are: Still present Timing: Constant Initial Severity: Severe Current Severity: Severe Character: Reports: Dyspnea at rest Aggravating: Reports: URI Alleviating: Reports: None Associated Signs and Symptoms: Reports: Cough, Edema, Rapid breathing. Denies: Wheezing, Chest pain with cough, Chest pain, Fever, Chills, Diaphoresis, Nasal congestion, Dizziness, Calf pain, Calf swelling, Labored breathing, Decreased intake Related History: Reports: Similar episode History of Healthcare-Acquired Pneumonia: No Pulmonary Embolism Risk Factors: Reports: None Cardiac Risk Factors: Reports: Hypertension, CHF Pseudomonas Risk Factors: Reports: None Tuberculosis Risk Factors: Reports: None Home Oxygen Use: Yes Respiratory Distress: Moderate Stridor Present: No Tracheal Deviation: No Subcutaneous Emphysema: No Accessory Muscle Use: Yes Retractions: Nasal Flaring Diminished Breath Sounds: Yes Prolonged Expiratory Phase: No Unable to Speak Full Sentences: No Fatigue: No Leg Swelling: Yes Dalila's Sign Present: No Grunting Respirations: No Kussmaul Respirations: No Differential Diagnoses: CHF, COPD Exacerbation, Unstable Angina, Pneumonia Review of Systems - Review Of Systems Constitutional: Reports: Malaise, Weakness Eyes: Reports: No symptoms Ears, Nose, Mouth, Throat: Reports: No symptoms Respiratory: Reports: Short of air Cardiac: Reports: Edema GI: Reports: No symptoms : Reports: No symptoms Musculoskeletal: Reports: No symptoms Skin: Reports: No symptoms Neurological: Reports: No symptoms Endocrine: Reports: No symptoms Hematologic/Lymphatic: Reports: No symptoms All Other Systems: Reviewed and Negative Past Medical History - Past Medical History Previously Healthy: Yes Endocrine: Reports: DM 2, Dyslipidemia Cardiovascular: Reports: Hypertension, A-Fib Respiratory: Reports: COPD Hematological: Reports: None Gastrointestinal: Reports: None Genitourinary: Reports: None Neuro/Psych: Reports: None Musculoskeletal: Reports: None Cancer: Reports: None - Surgical History General Surgical History: Reports: None - Family History Family History: Reports: None - Social History Smoking Status: Former smoker Hx Substance Use: No Alcohol Screening: None - Immunizations Tetanus Shot up to Date: Yes Physical Exam - Physical Exam Appearance: Ill-appearing Ill-appearing: Moderate Eyes: EOMI, Conjunctiva clear ENT: Ears normal, Nose normal, Oropharynx normal Respiratory: Breath sounds diminished, Crackles, Wheezes Cardiovascular: Tachycardia GI/: Soft, Nontender, No masses, Bowel sounds normal, No Organomegaly Musculoskeletal: Edema Skin: Warm, Dry, Normal color Neurological: Sensation intact, Motor intact, Reflexes intact, Cranial nerves intact, Alert, Oriented Psychiatric: Affect appropriate, Mood appropriate Interpretation - Radiology Interpretation Radiology Interpretation By: Radiologist Radiology Results: Positive Exam Interpreted: CT Scan Physician Notification - Case Discussed Time of Notification: 23:07 (Dr LONDON) Critical Care Note - Critical Care Note Total Time (mins): 30 Course - Course Hematology/Chemistry: 02/11/17 21:42 02/11/17 21:42 Orders, Labs, Meds: Lab Review 02/11/17 02/11/17 02/11/17 21:07 21:42 21:42 WBC 14.83 H RBC 6.57 H Hgb 18.5 H Hct 58.9 H MCV 89.6 MCH 28.2 MCHC 31.4 L RDW Coeff of Iván 15.8 H Plt Count 240 Immature Gran % (Auto) 0.7 Neut % (Auto) 80.2 Lymph % (Auto) 8.0 L [place] % (Auto) 10.6 H Eos % (Auto) 0.3 Baso % (Auto) 0.2 Immature Gran # (Auto) 0.1 Neut # 11.9 H Lymph # 1.2 [place] # 1.6 Eos # 0.0 Baso # 0.0 D-Dimer (Manual) Puncture Site Rrad O2 Saturation 100.0 ABG pH 7.322 L ABG pCO2 57.5 H ABG pO2 241.0 H ABG HCO3 29.7 H ABG Total CO2 31 H ABG Base Excess 4 H Tom Test + O2 Delivery Device Nrb Oxygen Liter Flow 15.00 FiO2 % 100.0 Sodium 140 Potassium 5.4 H Chloride 100 Carbon Dioxide 28 Anion Gap 17.4 BUN 23 H Creatinine 0.99 Estimated GFR (MDRD) 75.00 BUN/Creatinine Ratio 23.23 Glucose 124 H Lactic Acid Calcium 9.7 Total Bilirubin 0.6 AST 18 ALT 23 Alkaline Phosphatase 67 Total Creatine Kinase 21 Troponin I 0.0130 B-Natriuretic Peptide Total Protein 7.3 Albumin 3.3 L Globulin 4.0 Albumin/Globulin Ratio 0.83 Procalcitonin Influenza A (Rapid) Influenza B (Rapid) 02/11/17 02/11/17 02/11/17 21:42 21:42 21:42 WBC RBC Hgb Hct MCV MCH MCHC RDW Coeff of Iván Plt Count Immature Gran % (Auto) Neut % (Auto) Lymph % (Auto) [place] % (Auto) Eos % (Auto) Baso % (Auto) Immature Gran # (Auto) Neut # Lymph # [place] # Eos # Baso # D-Dimer (Manual) Puncture Site O2 Saturation ABG pH ABG pCO2 ABG pO2 ABG HCO3 ABG Total CO2 ABG Base Excess Tom Test O2 Delivery Device Oxygen Liter Flow FiO2 % Sodium Potassium Chloride Carbon Dioxide Anion Gap BUN Creatinine Estimated GFR (MDRD) BUN/Creatinine Ratio Glucose Lactic Acid 15.0 Calcium Total Bilirubin AST ALT Alkaline Phosphatase Total Creatine Kinase Troponin I B-Natriuretic Peptide 252 H Total Protein Albumin Globulin Albumin/Globulin Ratio Procalcitonin 0.05 Influenza A (Rapid) Influenza B (Rapid) 02/11/17 02/11/17 21:52 21:55 WBC RBC Hgb Hct MCV MCH MCHC RDW Coeff of Iván Plt Count Immature Gran % (Auto) Neut % (Auto) Lymph % (Auto) [place] % (Auto) Eos % (Auto) Baso % (Auto) Immature Gran # (Auto) Neut # Lymph # [place] # Eos # Baso # D-Dimer (Manual) 442.74 Puncture Site O2 Saturation ABG pH ABG pCO2 ABG pO2 ABG HCO3 ABG Total CO2 ABG Base Excess Tom Test O2 Delivery Device Oxygen Liter Flow FiO2 % Sodium Potassium Chloride Carbon Dioxide Anion Gap BUN Creatinine Estimated GFR (MDRD) BUN/Creatinine Ratio Glucose Lactic Acid Calcium Total Bilirubin AST ALT Alkaline Phosphatase Total Creatine Kinase Troponin I B-Natriuretic Peptide Total Protein Albumin Globulin Albumin/Globulin Ratio Procalcitonin Influenza A (Rapid) Negative Influenza B (Rapid) Negative Orders Category Date Time Status ABG DRAW REQUEST Stat CARDIO 02/11/17 21:07 Ordered EKG-(ED ONLY) Stat CARDIO 02/11/17 21:07 Ordered NEBULIZER TREATMENT Stat CARDIO 02/11/17 21:07 Ordered ED IV/MEDIPORT/POWERPORT .ONCE EMERGENCY 02/11/17 21:07 Active ABG Stat LAB 02/11/17 21:07 Completed B-TYPE NATRIURETIC PEPTIDE Stat LAB 02/11/17 21:42 Completed BLOOD CULTURE (ED ONLY) Stat LAB 02/11/17 21:42 Received CBC W/ AUTO DIFF Stat LAB 02/11/17 21:42 Completed COMPREHENSIVE METABOLIC PANEL Stat LAB 02/11/17 21:42 Completed CREATINE KINASE Stat LAB 02/11/17 21:42 Completed D-DIMER Stat LAB 02/11/17 21:52 Completed LACTIC ACID Stat LAB 02/11/17 21:42 Completed PROCALCITONIN Stat LAB 02/11/17 21:42 Completed RAPID FLU A/B Stat LAB 02/11/17 21:55 Completed SPUTUM CULTURE Stat LAB 02/11/17 21:10 Uncollected TROPONIN I Stat LAB 02/11/17 21:42 Completed 0.9 % Sodium Chloride [Saline Flush] MEDS 02/11/17 21:07 Ordered 1 syr IVF PRN PRN Furosemide [Lasix] MEDS 02/11/17 21:07 Discontinued 40 mg IVP ONCE STA Ipratropium/Albuterol Neb [Duoneb] MEDS 02/11/17 21:07 Discontinued 1 vial NEB ONCE STA Methylprednisolone Sod Succ/Pf [Solu-Medrol 125 mg] MEDS 02/11/17 21:07 Discontinued 80 mg IVP ONCE STA CT CHEST W/O CONTRAST Stat RADS 02/11/17 21:10 Completed Medications Generic Name Dose Route Start Last Admin Trade Name Freq PRN Reason Stop Dose Admin Sodium Chloride 1 syr 02/11/17 21:07 02/11/17 21:34 Saline Flush IVF 1 syr PRN PRN Administration To flush IV Discontinued Medications Generic Name Dose Route Start Last Admin Trade Name Freq PRN Reason Stop Dose Admin Albuterol/Ipratropium 1 vial 02/11/17 21:07 02/11/17 21:17 Duoneb NEB 02/11/17 21:08 1 vial ONCE STA Administration Furosemide 40 mg 02/11/17 21:07 02/11/17 21:34 Lasix IVP 02/11/17 21:08 40 mg ONCE STA Administration Methylprednisolone Sodium Succinate 80 mg 02/11/17 21:07 02/11/17 21:34 Solu-Medrol 125 Mg IVP 02/11/17 21:08 80 mg ONCE STA Administration Vital Signs: Temp Pulse Resp BP Pulse Ox 02/11/17 22:12 84 24 142/84 H 98 02/11/17 21:04 97.5 F L 160 H 34 H 155/78 H 88 L Departure - Departure Time of Disposition: 23:06 Disposition: ADMITTED INPATIENT Discharge Problem: COPD exacerbation Pneumonia Qualifiers: Pneumonia type: due to unspecified organism Laterality: right Lung location: middle lobe of lung Qualified Code(s): J18.1 - Lobar pneumonia, unspecified organism Instructions: COPD (Chronic Obstructive Pulmonary Disease) (ED) Condition: Stable Pt referred to PMD for follow-up: No Allergies/Adverse Reactions: Allergies No Known Allergies Allergy (Unverified 01/22/17 12:07) Home Medications: Ambulatory Orders Hydrochlorothiazide 12.5 mg PO DAILY 01/22/17 Metformin HCl 2,000 mg PO DAILY 01/22/17 Simvastatin [Zocor] 80 mg PO DAILY 01/22/17 Fluticasone/Vilanterol [Breo Ellipta 100-25 Mcg INH] 1 puff INH DAILY 01/23/17 Albuterol Sulfate [Ventolin Hfa] 2 puff IH QID PRN 01/24/17 Apixaban [Eliquis] 5 mg PO BID #60 tablet 01/28/17 Budesonide/Formoterol Fumarate [Symbicort 160-4.5 Mcg Inhaler] 2 puff IH BID #1 hfa.aer.ad 01/28/17 Diltiazem HCl [Cardizem] 120 mg PO BID #60 tablet 01/28/17 Potassium Chloride [K-Dur] 20 meq PO BID #10 tab 01/28/17 Prednisone 10 mg PO DIRECTED #21 tablet 12/06/17 Sotalol HCl [Betapace] 80 mg PO BID #60 tablet 01/28/17 Disposition Discussed With: Patient, Family
--- NOTE | 2017-02-11 23:00 | CT ---
EXAM: CT of the chest without contrast. HISTORY: Shortness of breath. Chronic obstructive pulmonary disease exacerbation. PROCEDURE: Contiguous axial CT images of the chest without contrast with coronal and sagittal reform ats. FINDINGS: Comparison made with CT chest of 01/28/2017. There is motion artifact which limits the exa m. The heart is within normal limits in size. The thoracic aorta is within normal limits in diamete r. There are calcified hilar lymph nodes. There is biapical scarring. There are right middle lobe and right lower lobe infiltrates and patchy areas of consolidation. There are degenerative changes in th e spine. The adrenal glands and visualized portion of the liver are normal in appearance. Impression: Right middle lobe and right lower lobe infiltrates and consolidation consistent with pne umonia. Please see report from CT chest of 01/28/2017 for further details.
[2017-02-11] MEDS ORDERED: TYLENOL PO PRN (23:12)
[2017-02-11] MEDS ORDERED: VANCOMYCIN 1,000 MG in SODIUM CHLORIDE 200 ML IV STA (23:15)
[2017-02-11] MEDS ORDERED: ROCEPHIN 1 GM in SODIUM CHLORIDE 50 ML IV SCH (23:30)
[2017-02-11] MEDS ORDERED: ROCEPHIN ONE (23:36)
[2017-02-11] MEDS: SODIUM CHLORIDE 1,000 ML IV SCH (23:45)
[2017-02-12] MEDS ORDERED: VANCOMYCIN ONE (00:58)
[2017-02-12] MEDS: DUONEB NEB SCH ×7 (01:02→22:15)
[2017-02-12] MEDS ORDERED: DUONEB NEB ONE (01:02)
[2017-02-12 01:32] VITALS: BMI 25.9
[2017-02-12] MEDS ORDERED: METFORMIN HCL 2000 MG PO SCH (09:00)
[2017-02-12] MEDS ORDERED: SIMVASTATIN 80 MG PO SCH (09:00)
[2017-02-12] MEDS ORDERED: NON-FORMULARY MEDICATION (Hydrochlorothiazide [Hydrochlorothiazide] 12.5 MG) PO SCH (09:00)
[2017-02-12] MEDS ORDERED: NON-FORMULARY MEDICATION (Diltiazem Hcl [Cardizem] 120 MG) PO SCH (09:00)
[2017-02-12] MEDS ORDERED: NON-FORMULARY MEDICATION (Fluticasone/Vilanterol [Breo Ellipta 100-25 Mcg Inh] 1 PUFF) INH SCH (09:00)
[2017-02-12] MEDS ORDERED: K-DUR PO SCH (09:00)
[2017-02-12] MEDS: BETAPACE PO SCH ×2 (09:14→21:41)
[2017-02-12] MEDS: CARDIZEM PO SCH ×2 (09:14→21:41)
[2017-02-12] MEDS: GLUCOPHAGE PO SCH ×2 (09:14→18:05)
[2017-02-12] MEDS: SOLU-MEDROL 125 MG IVP SCH ×4 (09:17→23:29)
[2017-02-12] MEDS: ZITHROMAX PO SCH (09:17)
[2017-02-12] MEDS: HYDROCHLOROTHIAZIDE PO SCH (09:18)
[2017-02-12] MEDS: ZOCOR PO SCH (09:18)
[2017-02-12] MEDS: ELIQUIS PO SCH ×2 (09:20→21:42)
--- NOTE | 2017-02-12 09:31 | PCM.PROG ---
Attending Provider: ATTENDING PROVIDER: Dr. LIGIA LONDON This patient is seen with Astrid Campos, Nurse Practitioner. DATE OF SERVICE: 02/12/17 SUBJECTIVE: This 72 year old WHITE/ M was hospitalized 02/11/17. Alert and sitting up in bed on Venturi mask. Still short of breath. REVIEW OF SYSTEMS: CONSTITUTIONAL: No night sweats. No fatigue, malaise, lethargy. No fever or chills. Weakness. HEENT: Eyes: No visual changes. No eye pain. No eye discharge. ENT: No runny nose. No epistaxis. No sinus pain. No odynophagia. No congestion. RESPIRATORY: Cough, no congestion. No hemoptysis. Shortness of breath. CARDIOVASCULAR: No angina symptoms. No CHF symptoms. No atypical chest pain for CAD. No palpitations. No orthopnea.. GASTROINTESTINAL: No abdominal pain. No nausea or vomiting. No diarrhea or constipation. No hematemesis. No hematochezia. GENITOURINARY: No urgency. No frequency. No dysuria. No hematuria. No obstructive symptoms. No discharge. No pain. No significant abnormal bleeding. MUSCULOSKELETAL: No musculoskeletal pain; no joint swelling. NEUROLOGICAL: Awake, alert, oriented to time, place and person. No headache. No neck pain. No syncope. No seizures. No dizziness. PSYCHIATRIC: Not anxious. No depression. No suicidal thoughts. No homicidal thoughts. SKIN: No rash. No lesions. No wounds. ENDOCRINE: No unexplained weight loss. No weight gain. HEMATOLOGIC/LYMPHATIC: No anemia. No purpura. No petechiae. No prolonged or excessive bleeding. No palpable lymph nodes. PHYSICAL EXAMINATION: GENERAL: The patient is awake, alert and oriented, sitting in bed in no distress. VITAL SIGNS: Temperature 97.2 F, Pulse 97, Respiratory Rate 20, BP 139/70, Pulse Ox 93% HEENT: Head normocephalic, atraumatic. Eyes: Extraocular muscles are intact. Pupils are equal, round and reactive to light and accommodation. Ears: No lesions. Nose appeared normal. Throat: No exudate or erythema. NECK: Supple. No JVD, no carotid bruit. No lymphadenopathy or thyromegaly. LUNGS: Bilateral inspiratory and expiratory wheezing. Clear to auscultation. Percussion note normal. Chest symmetrical. HEART: S1, S2, no S3. No murmurs. No cyanosis or clubbing. No ascites. Pulses: Dorsalis pedis and posterior tibial pulses +1 to +2 both sides. ABDOMEN: Soft. Non-tender. Bowel sounds active. No CVA tenderness. No mass felt. EXTREMITIES: trace left lower extre edema +1 right lower edema. Full range of motion of all extremities, equal. NEUROLOGIC: No focal deficit. Cranial nerves II through XII are grossly intact. No headache, no double vision or headache. SKIN: Not dry. Intact. Turgor-normal. LYMPHATIC: No palpable lymph nodes/no lymphedema. MUSCULOSKELETAL: Normal joints with no swelling. Muscle tone is normal. LAB REVIEW: 02/12/17 05:25 02/12/17 05:25 02/12/17 05:25: WBC 10.76 H, RBC 6.40 H, Hgb 18.5 H, Hct 57.2 H, MCV 89.4, MCH 28.9, MCHC 32.3, RDW Coeff of Iván 15.4 H, Plt Count 242, Immature Gran % (Auto) 0.5, Neut % (Auto) 93.5, Lymph % (Auto) 4.6 L, [place] % (Auto) 1.2, Eos % (Auto) 0.0, Baso % (Auto) 0.2, Immature Gran # (Auto) 0.1, Neut # 10.1 H, Lymph # 0.5 L , [place] # 0.1 L, Eos # 0.0, Baso # 0.0 02/12/17 05:25: Sodium 141, Potassium 4.6, Chloride 98, Carbon Dioxide 30, Anion Gap 17.6, BUN 23 H, Creatinine 1.04, Estimated GFR (MDRD) 70.00, BUN/ Creatinine Ratio 22.11, Glucose 191 H D, Calcium 9.4, Total Bilirubin 0.4, AST 16, ALT 22, Alkaline Phosphatase 64, Total Creatine Kinase 22, Troponin I < 0.0100, Total Protein 7.5, Albumin 3.1 L, Globulin 4.4, Albumin/Globulin Ratio 0.70 ASSESSMENT: Please see below. Right lower lobe pneumonia Acute respiratory failure Hyperkalemia COPD PLAN: Add Zithromax 500mg PO daily x 3 days Solu-medrol 125mg IV Q 6 hours DUO NEB Q 4 hours Plan and coordination of the patient's care discussed in the presence of Pediatric Critical Care Nurse and nurse. SCRIBED BY: NURYS CRUZ Supplier Quality Engineering Manager scribed while in presence of service performed by Dr. London/Astrid Campos APRN on 02/12/17 ([id number])
[2017-02-12] MEDS: SYMBICORT 160-4.5 MCG INHALER IH SCH ×2 (09:50→21:43)
[2017-02-12] MEDS: ROCEPHIN 1 GM in SODIUM CHLORIDE 50 ML IV SCH (21:41)
[2017-02-13] MEDS: DUONEB NEB SCH ×5 (04:55→21:20)
[2017-02-13] MEDS: SOLU-MEDROL 125 MG IVP SCH ×3 (06:21→18:13)
[2017-02-13] MEDS ORDERED: MORPHINE 4 MG/ML VIAL IVP STA (08:04)
[2017-02-13] MEDS ORDERED: LASIX IVP STA (08:04)
[2017-02-13] MEDS ORDERED: MORPHINE 4 MG/ML VIAL ONE ×2 (08:11→08:13)
[2017-02-13] MEDS: GLUCOPHAGE PO SCH ×2 (08:15→18:13)
[2017-02-13] MEDS: HYDROCHLOROTHIAZIDE PO SCH (08:15)
[2017-02-13] MEDS: ELIQUIS PO SCH ×2 (08:15→22:25)
[2017-02-13] MEDS: ZITHROMAX PO SCH (08:16)
[2017-02-13] MEDS: BETAPACE PO SCH ×2 (08:17→22:25)
[2017-02-13] MEDS: ZOCOR PO SCH (08:17)
[2017-02-13] MEDS: CARDIZEM PO SCH ×2 (08:17→22:25)
[2017-02-13] MEDS: SYMBICORT 160-4.5 MCG INHALER IH SCH ×2 (08:19→22:35)
--- NOTE | 2017-02-13 09:36 | PCM.PROG ---
Attending Provider: ATTENDING PROVIDER: Dr. LIGIA LONDON This patient is seen with Astrid Campos, Nurse Practitioner. DATE OF SERVICE: 02/13/17 SUBJECTIVE: This 72 year old WHITE/ M was hospitalized 02/11/17. Alert, sitting up in the bed experiencing worsening shortness of breath on 50% venturi mask. REVIEW OF SYSTEMS: CONSTITUTIONAL: No night sweats. No fatigue, malaise, lethargy. No fever or chills. HEENT: Eyes: No visual changes. No eye pain. No eye discharge. ENT: No runny nose. No epistaxis. No sinus pain. No odynophagia. No congestion. RESPIRATORY: Cough, no congestion. No hemoptysis. Shortness of breath. CARDIOVASCULAR: No angina symptoms. No CHF symptoms. No atypical chest pain for CAD. No palpitations. No orthopnea.. GASTROINTESTINAL: No abdominal pain. No nausea or vomiting. No diarrhea or constipation. No hematemesis. No hematochezia. GENITOURINARY: No urgency. No frequency. No dysuria. No hematuria. No obstructive symptoms. No discharge. No pain. No significant abnormal bleeding. MUSCULOSKELETAL: No musculoskeletal pain; no joint swelling. NEUROLOGICAL: Awake, alert, oriented to time, place and person. No headache. No neck pain. No syncope. No seizures. No dizziness. PSYCHIATRIC: Not anxious. No depression. No suicidal thoughts. No homicidal thoughts. SKIN: No rash. No lesions. No wounds. ENDOCRINE: No unexplained weight loss. No weight gain. HEMATOLOGIC/LYMPHATIC: No anemia. No purpura. No petechiae. No prolonged or excessive bleeding. No palpable lymph nodes. PHYSICAL EXAMINATION: GENERAL: The patient is awake, alert and oriented, sitting in bed in no distress. VITAL SIGNS: Temperature 97.6 F, Pulse 78, Respiratory Rate 35, BP 147/79, Pulse Ox 92% HEENT: Head normocephalic, atraumatic. Eyes: Extraocular muscles are intact. Pupils are equal, round and reactive to light and accommodation. Ears: No lesions. Nose appeared normal. Throat: No exudate or erythema. NECK: Supple. No JVD, no carotid bruit. No lymphadenopathy or thyromegaly. LUNGS: Bilateral inspiratory and expiratory wheeze. Diminished breath sounds. Clear to auscultation. Percussion note normal. Chest symmetrical. HEART: S1, S2, no S3. No murmurs. No cyanosis or clubbing. No ascites. Pulses: Dorsalis pedis and posterior tibial pulses +1 to +2 both sides. ABDOMEN: Soft. Non-tender. Bowel sounds active. No CVA tenderness. No mass felt. EXTREMITIES: +1 bilateral pitting edema. Full range of motion of all extremities, equal. NEUROLOGIC: No focal deficit. Cranial nerves II through XII are grossly intact. No headache, no double vision or headache. SKIN: Not dry. Intact. Turgor-normal. LYMPHATIC: No palpable lymph nodes/no lymphedema. MUSCULOSKELETAL: Normal joints with no swelling. Muscle tone is normal. LAB REVIEW: 02/13/17 06:45 02/13/17 06:45 02/13/17 06:45: Sodium 141, Potassium 4.9, Chloride 99, Carbon Dioxide 30, Anion Gap 16.9, BUN 29 H, Creatinine 0.85, Estimated GFR (MDRD) 89.00, BUN/ Creatinine Ratio 34.11, Glucose 153 H, Calcium 9.1, Total Bilirubin 0.4, AST 14 L, ALT 18, Alkaline Phosphatase 56, Total Protein 6.5, Albumin 2.9 L, Globulin 3.6, Albumin/Globulin Ratio 0.81 02/13/17 06:45: WBC 14.74 H, RBC 6.10, Hgb 17.4, Hct 55.0 H, MCV 90.2, MCH 28.5 , MCHC 31.6 L, RDW Coeff of Iván 15.1 H, Plt Count 220, Immature Gran % (Auto) 0.3, Neut % (Auto) 92.1, Lymph % (Auto) 3.9 L, [place] % (Auto) 3.6, Eos % (Auto) 0.0, Baso % (Auto) 0.1, Immature Gran # (Auto) 0.1, Neut # 13.6 H, Lymph # 0.6, [place] # 0.5, Eos # 0.0, Baso # 0.0 02/12/17 13:15: Total Creatine Kinase 18, Troponin I < 0.0100 02/12/17 08:35: Puncture Site Rr, O2 Saturation 78.0 L, ABG pH 7.403, ABG pCO2 46.6 H, ABG pO2 43.0 L*, ABG HCO3 29.1 H, ABG Total CO2 30 H, ABG Base Excess 4 H, Tom Test +, FiO2 % 21.0 ASSESSMENT: Please see below. Right lobe pneumonia COPD with acute exacerbation Shortness of breath Hyperkalemia, resolved PLAN: Discontinue IV fluids Lasix 40mg IV Morphine 3mg IV now Plan and coordination of the patient's care discussed in the presence of Engineering Document Control Clerk and nurse. SCRIBED BY: NURYS CRUZ Job Interviewer scribed while in presence of service performed by Dr. London/Astrid Campos APRN on 02/13/17 ([id number])
[2017-02-13] MEDS: MORPHINE 4 MG/ML VIAL IVP PRN ×3 (13:38→22:24)
[2017-02-13] MEDS: ROCEPHIN 1 GM in SODIUM CHLORIDE 50 ML IV SCH (22:24)
[2017-02-14] MEDS: SOLU-MEDROL 125 MG IVP SCH ×5 (00:05→23:16)
[2017-02-14] MEDS: DUONEB NEB SCH ×6 (01:53→22:47)
[2017-02-14] MEDS: MORPHINE 4 MG/ML VIAL IVP PRN ×2 (05:13→15:16)
[2017-02-14] MEDS: CARDIZEM PO SCH ×2 (08:08→20:55)
[2017-02-14] MEDS: ZITHROMAX PO SCH (08:08)
[2017-02-14] MEDS: BETAPACE PO SCH ×2 (08:09→20:54)
[2017-02-14] MEDS: HYDROCHLOROTHIAZIDE PO SCH (08:09)
[2017-02-14] MEDS: ELIQUIS PO SCH ×2 (08:09→20:54)
[2017-02-14] MEDS: ZOCOR PO SCH (08:09)
[2017-02-14] MEDS: GLUCOPHAGE PO SCH ×2 (08:09→17:08)
[2017-02-14] MEDS: SYMBICORT 160-4.5 MCG INHALER IH SCH ×2 (08:10→20:58)
[2017-02-14] MEDS: SODIUM CHLORIDE 1,000 ML IV SCH (09:43)
[2017-02-14] MEDS: LASIX IVP SCH (11:40)
[2017-02-14] MEDS: XANAX PO SCH ×3 (11:40→20:55)
[2017-02-14] MEDS: ROCEPHIN 1 GM in SODIUM CHLORIDE 50 ML IV SCH (20:54)
[2017-02-15] MEDS: DUONEB NEB SCH ×6 (01:30→22:34)
[2017-02-15] MEDS ORDERED: MORPHINE 4 MG/ML VIAL IVP STA (01:38)
[2017-02-15] MEDS ORDERED: LASIX IVP STA ×2 (01:38→13:14)
[2017-02-15] MEDS: SOLU-MEDROL 125 MG IVP SCH ×4 (05:12→23:03)
[2017-02-15] MEDS: LASIX IVP SCH (05:55)
[2017-02-15] MEDS: SYMBICORT 160-4.5 MCG INHALER IH SCH ×2 (08:57→20:38)
[2017-02-15] MEDS: ZOCOR PO SCH (08:58)
[2017-02-15] MEDS: GLUCOPHAGE PO SCH ×2 (08:58→18:21)
[2017-02-15] MEDS: ELIQUIS PO SCH ×2 (08:58→20:38)
[2017-02-15] MEDS: CARDIZEM PO SCH ×2 (08:58→20:37)
[2017-02-15] MEDS: XANAX PO SCH ×3 (09:00→20:37)
[2017-02-15] MEDS: BETAPACE PO SCH ×2 (09:00→20:37)
[2017-02-15] MEDS: DOXY-100 100 MG in SODIUM CHLORIDE 100 ML IV SCH ×2 (14:24→21:35)
[2017-02-15] MEDS: ROCEPHIN 1 GM in SODIUM CHLORIDE 50 ML IV SCH (20:38)
[2017-02-16] MEDS: DUONEB NEB SCH ×6 (02:00→23:05)
[2017-02-16] MEDS: MORPHINE 4 MG/ML VIAL IVP PRN ×3 (03:05→23:10)
[2017-02-16] MEDS: SOLU-MEDROL 125 MG IVP SCH ×3 (05:09→18:41)
[2017-02-16] MEDS: LASIX IVP SCH (05:55)
[2017-02-16] MEDS: CARDIZEM PO SCH ×2 (09:56→22:13)
[2017-02-16] MEDS: ELIQUIS PO SCH ×2 (09:56→22:14)
[2017-02-16] MEDS: GLUCOPHAGE PO SCH ×2 (09:56→18:49)
[2017-02-16] MEDS: ZOCOR PO SCH (09:57)
[2017-02-16] MEDS: BETAPACE PO SCH ×2 (09:57→22:13)
[2017-02-16] MEDS: DOXY-100 100 MG in SODIUM CHLORIDE 100 ML IV SCH ×2 (09:57→22:13)
[2017-02-16] MEDS: SYMBICORT 160-4.5 MCG INHALER IH SCH ×2 (09:59→22:14)
[2017-02-16] MEDS: XANAX PO SCH ×3 (09:59→22:14)
[2017-02-16] MEDS ORDERED: SOLU-MEDROL 125 MG IVP STA (18:12)
[2017-02-16] MEDS ORDERED: LASIX IVP STA (18:12)
[2017-02-16] MEDS: AZACTAM 1 GM in SODIUM CHLORIDE 50 ML IV SCH (20:00)
[2017-02-16] MEDS: ROCEPHIN 1 GM in SODIUM CHLORIDE 50 ML IV SCH (21:24)
[2017-02-17] MEDS: SOLU-MEDROL 125 MG IVP SCH ×4 (00:15→17:59)
[2017-02-17] MEDS: DUONEB NEB SCH ×4 (02:30→14:15)
[2017-02-17] MEDS: MORPHINE 4 MG/ML VIAL IVP PRN ×2 (03:21→16:47)
[2017-02-17] MEDS: LASIX IVP SCH (06:12)
[2017-02-17] MEDS: AZACTAM 1 GM in SODIUM CHLORIDE 50 ML IV SCH ×2 (10:51→21:05)
[2017-02-17] MEDS: GLUCOPHAGE PO SCH ×2 (10:52→18:01)
[2017-02-17] MEDS: CARDIZEM PO SCH ×2 (10:57→21:05)
[2017-02-17] MEDS: BETAPACE PO SCH ×2 (10:57→21:05)
[2017-02-17] MEDS: SYMBICORT 160-4.5 MCG INHALER IH SCH ×2 (10:58→21:06)
[2017-02-17] MEDS: XANAX PO SCH ×3 (10:58→21:06)
[2017-02-17] MEDS: ZOCOR PO SCH (10:59)
[2017-02-17] MEDS: ELIQUIS PO SCH ×2 (10:59→21:05)
--- NOTE | 2017-02-17 11:15 | PCM.PROG ---
Attending Provider: ATTENDING PROVIDER: Dr. LIGIA LONDON DATE OF SERVICE: 02/17/17 SUBJECTIVE: This 72 year old WHITE/ M was hospitalized 02/11/17. The patient is hospitalized with respiratory failure and pneumonia. The patient's condition is slowly deteriorating after initial improvement. He has been on triple antibiotics. He was put on BIPAP which he cannot tolerate and wants to be on cannula or Venti Mask. The patient is DNI. Respirations are shallow. He has very poor air entry with mild expiratory wheeze. REVIEW OF SYSTEMS: CONSTITUTIONAL: No night sweats. No fatigue, malaise, lethargy. No fever or chills. HEENT: Eyes: No visual changes. No eye pain. No eye discharge. ENT: No runny nose. No epistaxis. No sinus pain. No odynophagia. No congestion. RESPIRATORY: No cough, no congestion. No hemoptysis. No shortness of breath. CARDIOVASCULAR: No angina symptoms. No CHF symptoms. No atypical chest pain for CAD. No palpitations. No orthopnea.. GASTROINTESTINAL: No abdominal pain. No nausea or vomiting. No diarrhea or constipation. No hematemesis. No hematochezia. GENITOURINARY: No urgency. No frequency. No dysuria. No hematuria. No obstructive symptoms. No discharge. No pain. No significant abnormal bleeding. MUSCULOSKELETAL: No musculoskeletal pain; no joint swelling. NEUROLOGICAL: The patient is sleepy, barely responds to verbal stimuli. No headache. No neck pain. No syncope. No seizures. No dizziness. PSYCHIATRIC: Not anxious. No depression. No suicidal thoughts. No homicidal thoughts. SKIN: No rash. No lesions. No wounds. ENDOCRINE: No unexplained weight loss. No weight gain. HEMATOLOGIC/LYMPHATIC: No anemia. No purpura. No petechiae. No prolonged or excessive bleeding. No palpable lymph nodes. PHYSICAL EXAMINATION: GENERAL: The patient is sleepy, barely responds to verbal stimuli lying in bed in no distress. VITAL SIGNS: Temperature 97.5 F, Pulse 66, Respiratory Rate 26, BP 133/63, Pulse Ox 97% HEENT: Head normocephalic, atraumatic. Eyes: Extraocular muscles are intact. Pupils are equal, round and reactive to light and accommodation. Ears: No lesions. Nose appeared normal. Throat: No exudate or erythema. NECK: Supple. No JVD, no carotid bruit. No lymphadenopathy or thyromegaly. LUNGS: Decreased breath sounds, poor air entry. Percussion note normal. Chest symmetrical. HEART: S1, S2, no S3. No murmurs. No cyanosis or clubbing. No ascites. Pulses: Dorsalis pedis and posterior tibial pulses +1 to +2 both sides. ABDOMEN: Soft. Non-tender. Bowel sounds active. No CVA tenderness. No mass felt. EXTREMITIES: Trace pedal edema. Full range of motion of all extremities, equal. NEUROLOGIC: No focal deficit. Cranial nerves II through XII are grossly intact. No headache, no double vision or headache. SKIN: Not dry. Intact. Turgor-normal. LYMPHATIC: No palpable lymph nodes/no lymphedema. MUSCULOSKELETAL: Normal joints with no swelling. Muscle tone is normal. LAB REVIEW: 02/17/17 05:19 02/17/17 05:19 02/17/17 05:19: Sodium 148 H, Potassium 4.6, Chloride 92 L, Carbon Dioxide 49 H * D, Anion Gap 11.6, BUN 61 H*, Creatinine 1.10, Estimated GFR (MDRD) 66.00, BUN /Creatinine Ratio 55.45, Glucose 223 H, Calcium 9.2, Total Bilirubin 0.3, AST 9 L, ALT 23, Alkaline Phosphatase 51 L, Total Protein 6.2, Albumin 2.8 L, Globulin 3.4, Albumin/Globulin Ratio 0.82 02/17/17 05:19: WBC 10.37 H, RBC 5.94, Hgb 16.7, Hct 55.9 H, MCV 94.1 H, MCH 28.1, MCHC 29.9 L, RDW Coeff of Iván 13.8, Plt Count 188, Immature Gran % (Auto) 0.5, Neut % (Auto) 90.5, Lymph % (Auto) 4.3 L, Griggs % (Auto) 4.6, Eos % (Auto) 0.0, Baso % (Auto) 0.1, Immature Gran # (Auto) 0.1, Neut # 9.4 H, Lymph # 0.5 L , Griggs # 0.5, Eos # 0.0, Baso # 0.0 02/17/17 04:55: Puncture Site Rb, O2 Saturation 92.0 L, ABG pH 7.369, ABG pCO2 87.8 H, ABG pO2 70.0 L, ABG HCO3 50.6 H, ABG Total CO2 50 H, ABG Base Excess 25 H, Tom Test +, O2 Delivery Device Bipap, FiO2 % 50.0 02/16/17 21:20: Puncture Site Rb, O2 Saturation 84.0 L, ABG pH 7.410, ABG pCO2 74.9 H, ABG pO2 52.0 L*, ABG HCO3 47.5 H, ABG Total CO2 50 H, ABG Base Excess 23 H, Tom Test +, O2 Delivery Device Venturi mask, Oxygen Liter Flow 15.00, FiO2 % 55.0 ASSESSMENT: 1. Respiratory failure 2. Pneumonia 3. History of CHF 4. History of atrial fibrillation 5. Renal azotemia 6. Hyperglycemia PLAN: 1. Continue antibiotics, nebs and oxygen per cannula. The patient refused BIPAP 2. Continue steroids Plan and coordination of the patient's care discussed in the presence of Supervisor Hanging And Trimming and nurse. PROGNOSIS: Poor. The patient is DNI. SCRIBED BY: MARLIN GRAY Corn Sheller Operator scribed while in presence of service performed by Dr. LIGIA LONDON on 02/17/17 ([id number])
[2017-02-17] MEDS: DOXY-100 100 MG in SODIUM CHLORIDE 100 ML IV SCH ×2 (12:16→23:01)
--- NOTE | 2017-02-17 13:42 | HP ---
DATE OF SERVICE: 02/12/17 HISTORY OF PRESENT ILLNESS: This is a 72-year-old white male who was hospitalized not to long ago with CHF, atrial fibrillation/atrial flutter related to chronic lung disease. This seemed to be under control. He does have severe COPD as he was a former smoker. He came to the emergency room by ambulance complaining of worsening shortness of breath for the past four to five days. He was coughing and congested. He was recently released on 01/28 from the hospital. PAST MEDICAL HISTORY: COPD Former smoker Diabetes mellitus Type 2 Dyslipidemia Obesity Hypertension History of atrial fib PAST SURGICAL HISTORY: None REVIEW OF SYSTEMS: CONSTITUTIONAL: Positive for malaise and weakness. No night sweats. No fever or chills. HEENT: Eyes: No blurry vision. No visual changes. No eye pain. No eye discharge. ENT: No runny nose. No epistaxis. No sinus pain. No sore throat. No odynophagia. No ear pain. No congestion. RESPIRATORY: Positive for shortness of breath, coughing. No hemoptysis. CARDIOVASCULAR: No angina symptoms. No CHF symptoms. No atypical chest pain for CAD. No palpitations. No orthopnea. The patient has leg edema. GASTROINTESTINAL: No abdominal pain. No nausea or vomiting. No diarrhea or constipation. No hematemesis. No hematochezia. GENITOURINARY: No urgency. No frequency. No dysuria. No hematuria. No obstructive symptoms. No discharge. No pain. No significant abnormal bleeding. MUSCULOSKELETAL: Positive for generalized weakness. No joint swelling or redness. NEUROLOGICAL: No headache. No neck pain. No syncope. No seizures. No confusion. No dizziness. PSYCHIATRIC: Not anxious. No depression. No suicidal thoughts. No homicidal thoughts. SKIN: Clean, dry and intact. No rashes. ENDOCRINE: No unexplained weight loss. No weight gain. HEMATOLOGIC/LYMPHATIC: No anemia. No purpura. No petechiae. No prolonged or excessive bleeding. No palpable lymph nodes. PERSONAL/FAMILY/SOCIAL HISTORY: The patient is a former smoker, he lives at home with his . He denies any alcohol or ilicit drug use. His is a current smoker. MEDICATIONS: Hydrochlorothiazide 12.5 mg daily Metformin 1000 mg b.i.d. Zocor 80 mg daily Breo inhaler one puff daily Albuterol inhaler two puffs p.r.n. Eliquis 5 mg b.i.d. Symbicort 160 two puffs b.i.d. Cardizem 120 mg b.i.d. Potassium Chloride 20 mEq b.i.d. Betapace 80 mg b.i.d. ALLERGIES: NKDA PHYSICAL EXAMINATION: VITAL SIGNS: Temperature 97.5, heart rate 160, respirations 34, Blood pressure 155/78, pulse ox 88%. Repeat one hour later pulse 98%, BP 142/84, respirations 24 pulse 84. The patient is ill-appearing in moderate distress. HEENT: Head normocephalic, atraumatic. Eyes: Extraocular muscles are intact. Pupils are equal, round and reactive to light and accommodation. Ears: TMs within normal limits. No lesions. Nose appeared normal. Throat: No exudate or erythema. NECK: Supple. No JVD, no carotid bruit. No lymphadenopathy or thyromegaly. LUNGS: Severely dimnished breath sounds bilaterally with bilateral rhonchi and expiratory and inspiratory wheezing. Percussion note normal. Chest symmetrical. HEART: Tachycardic, regular rhythm. No murmurs, clicks or rubs. No cyanosis or clubbing. No ascites. Pulses: Dorsalis pedis and posterior tibial pulses +1 to +2 both sides. ABDOMEN: Soft. Nontender. Bowel sounds active times four quadrants. No CVA tenderness. No hepatosplenomegaly. EXTREMITIES: No clubbing, no cyanosis, no joint swelling, no redness. The patient has trace to +1 bilateral lower extremity edema. Full range of motion of all extremities, equal. Negative Homans' sign bilaterally. NEUROLOGIC: Alert and oriented times three. No focal deficit. Cranial nerves II through XII are grossly intact. No headache, no double vision or headache. SKIN: [place], warm and dry. Intact. Turgor - normal. LYMPHATIC: No palpable lymph nodes/no lymphedema. MUSCULOSKELETAL: Normal joints with no swelling. Muscle tone is normal. LABS: White count 14.83, hemoglobin 18.5, hematocrit 58.9, MCV 89.6, platelets 240. Sodium 140, potassium 5.4, chloride 100, carbon dioxide 28, BUN 23, creatinine 0.99, glucose 124. Calcium 9.7, AST 18, ALT 23, Alkaline phosphatase 67, total CK 21, total protein 7.3, albumin 3.3, globulin 4.0. ABGs on 15L of nonrebreather: 02 sat 100, pH 7.322, pc02 57.5, p02 241, bicarb 29.7, total c02 31, base excess of 4. Lactic acid 15, BNP 252, D. dimer 442. Influenza A and B are both negative. CT of the chest without contrast reveals right middle lobe and lower lobe infiltrates and consolidation consistent with pneumonia. ASSESSMENT: 1. RIGHT LOBE PNEUMONIA 2. SHORTNESS OF BREATH 3. COPD 4. HYPERKALEMIA 5. OBESITY 6. HYPERTENSION PLAN: 1. Admit to the Special Care Unit. 2. Repeat ABGs on room air. 3. CBC, CMP daily. 4. Routine telemetry orders. 5. Solu-Medrol 125 mg q.6hr IV. 6. Rocephin 1 gm IV daily. 7. Zithromax 500 mg p.o. daily times three days. 8. Xopenex neb treatments q.6hr scheduled. 9. Sputum for culture and sensitivity. 10. Oxygen as needed. 11. Regular diet. 12. Continuous monitoring. 13. Will follow closely. TIME SPENT: More than 70 minutes. MTDD
[2017-02-17 20:24] VITALS: TEMP 97.2
[2017-02-17] MEDS: ROCEPHIN 1 GM in SODIUM CHLORIDE 50 ML IV SCH (22:05)
[2017-02-18] MEDS: SOLU-MEDROL 125 MG IVP SCH ×3 (00:31→13:13)
[2017-02-18] MEDS: MORPHINE 4 MG/ML VIAL IVP PRN ×2 (00:37→04:07)
[2017-02-18] MEDS: LASIX IVP SCH (06:04)
[2017-02-18] MEDS ORDERED: XANAX PO STA (06:49)
[2017-02-18] MEDS ORDERED: LASIX IVP STA (08:23)
[2017-02-18] MEDS: AZACTAM 1 GM in SODIUM CHLORIDE 50 ML IV SCH (09:23)
[2017-02-18] MEDS: XANAX PO SCH ×2 (09:28→15:43)
[2017-02-18] MEDS: GLUCOPHAGE PO SCH (09:43)
[2017-02-18] MEDS: BETAPACE PO SCH (09:43)
[2017-02-18] MEDS: ELIQUIS PO SCH (09:43)
[2017-02-18] MEDS: CARDIZEM PO SCH (09:43)
[2017-02-18] MEDS: ZOCOR PO SCH (09:44)
--- NOTE | 2017-02-18 11:38 | PN ---
DATE OF SERVICE: 02/14/17 SUBJECTIVE: 72-year-old white male hospitalized with COPD, acute respiratory failure. The patient's condition has steadily improved. Pneumonia seems to be resolving clinically. The patient gets better with Lasix IV along with Morphine. Xanax has been added for his anxiety. The problem with the patient is that he has a lot of visitors and he keeps talking and exhausted. REVIEW OF SYSTEMS: CONSTITUTIONAL: Weakness. No night sweats. No fever or chills. HEENT: Eyes: No visual changes. No eye pain. No eye discharge. ENT: No runny nose. No epistaxis. No sinus pain. No sore throat. No odynophagia. No congestion. RESPIRATORY: No cough, no congestion. No hemoptysis. No shortness of breath. CARDIOVASCULAR: Atrial flutter fibulation alternating with sinus rhythm. This morning he was in sinus rhythm. No angina symptoms. No CHF symptoms. No atypical chest pain for CAD. No palpitations. No orthopnea. GASTROINTESTINAL: Appetite is improving. No abdominal pain. No nausea or vomiting. No diarrhea or constipation. No hematemesis. No hematochezia. GENITOURINARY: No urgency. No frequency. No dysuria. No hematuria. No obstructive symptoms. No discharge. No pain. No significant abnormal bleeding. MUSCULOSKELETAL: No musculoskeletal pain; no joint swelling. NEUROLOGICAL: No headache. No neck pain. No syncope. No seizures. No dizziness. PSYCHIATRIC: Not anxious. No depression. No suicidal thoughts. No homicidal thoughts. SKIN: No rash. No lesions. No wounds. ENDOCRINE: No unexplained weight loss. No weight gain. HEMATOLOGIC/LYMPHATIC: No anemia. No purpura. No petechiae. No prolonged or excessive bleeding. No palpable lymph nodes. PHYSICAL EXAMINATION: GENERAL: The patient is oriented to time, place and person. VITAL SIGNS: Temperature 97.2, pulse 60 to 70/min regular. Respiratory rate 15 , BP 120/70, pulse ox 90%. HEENT: Head normocephalic, atraumatic. Eyes: Extraocular muscles are intact. Pupils are equal, round and reactive to light and accommodation. Ears: No lesions. Nose appeared normal. Throat: No exudate or erythema. NECK: Supple. No JVD, no carotid bruit. No lymphadenopathy or thyromegaly. LUNGS: Decreased breath sounds but clear to auscultation. Percussion note normal. Chest symmetrical. HEART: S1, S2, no S3. No murmurs. No cyanosis or clubbing. No ascites. Pulses: Dorsalis pedis and posterior tibial pulses +1 to +2 both sides. ABDOMEN: Soft. Nontender. Bowel sounds active. No CVA tenderness. No mass felt. EXTREMITIES: No edema. Full range of motion of all extremities, equal. NEUROLOGIC: No focal deficit. Cranial nerves II through XII are grossly intact. No headache, no double vision or headache. SKIN: Not dry. Intact. Turgor - normal. LYMPHATIC: No palpable lymph nodes/no lymphedema. MUSCULOSKELETAL: Normal joints with no swelling. Muscle tone is normal. ASSESSMENT: 1. PNEUMONIA SEEMS TO BE RESOLVING 2. ACUTE RESPIRATORY FAILURE 3. CONGESTIVE HEART FAILURE 4. ATRIAL FIBRILLATION PLAN: 1. Continue IV Lasix 2. Continue Xanax 3. Continue antibiotics 4. Continue to wear oxygen PROGNOSIS: Guarded. The is in the room and discussed the prognosis and seems to be depending upon his clearance of his respiratory status. TIME SPENT: More than 30 minutes. Plan and coordination of the patient's care discussed in the presence of nurse. PAULIE
--- NOTE | 2017-02-18 11:46 | PN ---
DATE OF SERVICE: 02/15/17 SUBJECTIVE: 72-year-old white male hospitalized with acute respiratory failure, pneumonia. The patient's condition has been deteriorating for the past 12 to 24 hours. The patient has bouts of shortness of breath off and on accentuated by left ventricular failure. The patient's overall physical status has been deteriorating with weakness. He has been sitting up trying to talk to a lot of family members for the past several days. The family has been instructed to leave the patient alone and let him rest. REVIEW OF SYSTEMS: CONSTITUTIONAL: Weak and tired. No night sweats. No fever or chills. HEENT: Eyes: No visual changes. No eye pain. No eye discharge. ENT: No runny nose. No epistaxis. No sinus pain. No sore throat. No odynophagia. No congestion. RESPIRATORY: No cough, no congestion. No hemoptysis. The patient is short of breath with minimal exertion. CARDIOVASCULAR: No angina symptoms. No CHF symptoms. No atypical chest pain for CAD. No palpitations. No orthopnea. GASTROINTESTINAL: Appetite is so-so. No abdominal pain. No nausea or vomiting. No diarrhea or constipation. No hematemesis. No hematochezia. GENITOURINARY: No urgency. No frequency. No dysuria. No hematuria. No obstructive symptoms. No discharge. No pain. No significant abnormal bleeding. MUSCULOSKELETAL: No musculoskeletal pain; no joint swelling. NEUROLOGICAL: No headache. No neck pain. No syncope. No seizures. No dizziness. PSYCHIATRIC: Not anxious. No depression. No suicidal thoughts. No homicidal thoughts. SKIN: No rash. No lesions. No wounds. ENDOCRINE: No unexplained weight loss. No weight gain. HEMATOLOGIC/LYMPHATIC: No anemia. No purpura. No petechiae. No prolonged or excessive bleeding. No palpable lymph nodes. PHYSICAL EXAMINATION: VITAL SIGNS: Temperature 97.6, pulse 51, respiratory rate 16, BP 111/70, pulse ox 91% on 50% Venti mask. HEENT: Head normocephalic, atraumatic. Eyes: Extraocular muscles are intact. Pupils are equal, round and reactive to light and accommodation. Ears: No lesions. Nose appeared normal. Throat: No exudate or erythema. NECK: Supple. No JVD, no carotid bruit. No lymphadenopathy or thyromegaly. LUNGS: Decreased breath sounds but clear to auscultation, not good air entry. Percussion note normal. Chest symmetrical. HEART: S1, S2, no S3. No murmurs. No cyanosis or clubbing. No ascites. Pulses: Dorsalis pedis and posterior tibial pulses +1 to +2 both sides. ABDOMEN: Soft. Nontender. Bowel sounds active. No CVA tenderness. No mass felt. EXTREMITIES: No edema. Full range of motion of all extremities, equal. NEUROLOGIC: No focal deficit. Cranial nerves II through XII are grossly intact. No headache, no double vision or headache. SKIN: Not dry. Intact. Turgor - normal. LYMPHATIC: No palpable lymph nodes/no lymphedema. MUSCULOSKELETAL: Normal joints with no swelling. Muscle tone is normal. ASSESSMENT: 1. RESPIRATORY FAILURE SEEMS TO BE UNDER CONTROL WITH CONTINUED HYPOXEMIA REQUIRING 50% VENTI MASK. THE PATIENT DOESN'T SEEM TO BE IMPROVING HIS RESPIRATORY STATUS. THE PATIENT SEEMS TO BE TIRING. PLAN: 1. The family has been explained about not having too many relatives in for the holiday season and advised to leave him alone. 2. The patient will be continued on high doses of steroids, antibiotics, oxygen , IV Lasix, nebs treatment. The goal will be to keep his oxygen saturation 90%. The patient had ABGs done last night which were definitely venous because at the time when the blood gases were done, the situation was 77% while at the same time oximetry done with the finger was 88 to 90%. I talked with respiratory therapist, Radha at that time. CONDITION: Stable. PROGNOSIS: Guarded. TIME SPENT: More than 30 minutes. Plan and coordination of the patient's care discussed in the presence of nurse. PAULIE
[2017-02-18] MEDS: DOXY-100 100 MG in SODIUM CHLORIDE 100 ML IV SCH (12:00)
[2017-02-18] MEDS: SYMBICORT 160-4.5 MCG INHALER IH SCH (14:55)
[2017-02-18 21:41] VITALS: BP 152/78
--- NOTE | 2017-02-19 14:35 | PN ---
DATE OF SERVICE: 02/16/17 SUBJECTIVE: 72-year-old white male hospitalized with COPD, acute respiratory failure. The patient has pneumonia. The patient's condition has deteriorated. The patient had very likely bout of CHF initially but now patient seems to have bronchiolitis type of clinical picture with very decreased breath sounds, diffuse expiratory wheeze with very shallow respirations. The patient is tiring out on Venti mask. His oxygen saturation is 88 to 90% on 50%. The patient is DNI. He is not to be intubated or put on respirator. The patient's family is in the room. REVIEW OF SYSTEMS: CONSTITUTIONAL: The patient says he is feeling tired and short of breath. No night sweats. No fever or chills. HEENT: Eyes: No visual changes. No eye pain. No eye discharge. ENT: No runny nose. No epistaxis. No sinus pain. No sore throat. No odynophagia. No congestion. RESPIRATORY: No cough, no congestion. No hemoptysis. No shortness of breath. No PND. CARDIOVASCULAR: No angina symptoms. No CHF symptoms. No atypical chest pain for CAD. No palpitations. No orthopnea. GASTROINTESTINAL: No abdominal pain. No nausea or vomiting. No diarrhea or constipation. No hematemesis. No hematochezia. GENITOURINARY: No urgency. No frequency. No dysuria. No hematuria. No obstructive symptoms. No discharge. No pain. No significant abnormal bleeding. MUSCULOSKELETAL: No musculoskeletal pain; no joint swelling. NEUROLOGICAL: Patient is drowsy. No headache. No neck pain. No syncope. No seizures. No dizziness. PSYCHIATRIC: Not anxious. No depression. No suicidal thoughts. No homicidal thoughts. SKIN: No rash. No lesions. No wounds. ENDOCRINE: No unexplained weight loss. No weight gain. HEMATOLOGIC/LYMPHATIC: No anemia. No purpura. No petechiae. No prolonged or excessive bleeding. No palpable lymph nodes. PHYSICAL EXAMINATION: VITAL SIGNS: Temperature 96.6, pulse 53, respiratory rate 24, BP 120/60, pulse ox 88 to 90% on 50%. HEENT: Head normocephalic, atraumatic. Eyes: Extraocular muscles are intact. Pupils are equal, round and reactive to light and accommodation. Ears: No lesions. Nose appeared normal. Throat: No exudate or erythema. NECK: Supple. No JVD, no carotid bruit. No lymphadenopathy or thyromegaly. LUNGS: Decreased breath sounds. Clear to auscultation. Percussion note normal. Chest symmetrical. HEART: S1, S2, no S3. No murmurs. No cyanosis or clubbing. No ascites. Pulses: Dorsalis pedis and posterior tibial pulses +1 to +2 both sides. ABDOMEN: Soft. Nontender. Bowel sounds active. No CVA tenderness. No mass felt. EXTREMITIES: No edema. Full range of motion of all extremities, equal. NEUROLOGIC: No focal deficit. Cranial nerves II through XII are grossly intact. No headache, no double vision or headache. SKIN: Not dry. Intact. Turgor - normal. LYMPHATIC: No palpable lymph nodes/no lymphedema. MUSCULOSKELETAL: Normal joints with no swelling. Muscle tone is normal. LABS: Hemoglobin 16.9, hematocrit 57, WBC 11,000, normal differential. Creatinine 0.9 , BUN 63. ASSESSMENT: 1. ACUTE RESPIRATORY FAILURE 2. PNEUMONITIS, BILATERAL WITH BRONCHIOLITIS 3. HISTORY OF CHF 4. ATRIAL FIBRILLATION 5. SEVERE CHRONIC LUNG DISEASE 6. RENAL AZOTEMIA PLAN: 1. Hold Lasix as long as we can but we may have to give Lasix small amount. 2. Also, continue to give IV steroids. 3. Continue antibiotics. The patient has Doxycycline and Azactam added to his Rocephin. 4. Continue nebs treatment. 5. Will also try and do an ABG and see whether the patient may benefit from BIPAP. CONDITION; Critical PROGNOSIS: Poor TIME SPENT: More than 30 minutes. Plan and coordination of the patient's care discussed in the presence of nurse. PAULIE
--- NOTE | 2017-02-20 15:18 | PN ---
DATE OF SERVICE: 02/18/17 SUBJECTIVE: 72-year-old white male hospitalized with acute respiratory failure with severe COPD. The patient has had pneumonia. The patient's condition initially seemed to have improved. Now he has developed picture of acute respiratory distress type of syndrome with severe hypoxemia. Today, the patient declined BIPAP, also has declined nebs treatment. The patient was very angry with the family because of putting him through BIPAP and putting him through nebs treatment. He wants to be comfortable. The patient is DNR now. We gave IV Lasix 20 mg. His condition seemed to have improve a little bit from yesterday. His creatinine is 0.7, BUN 44. Remarkably improvement in his renal azotemia. The patient is on triple antibiotics, Rocephin, Azactam and Doxycycline. The family, especially wants comfort measures. The patient will be asked to be put on the swing bed because of IV antibiotics to which the family has agreed and the patient will be discharged to the swing bed. FINAL DIAGNOSIS: 1. Respiratory failure 2. Bilateral pneumonia with acute respiratory distress type of syndrome 3. Congestive heart failure 4. Atrial flutter/fib 5. Severe chronic lung disease 6. Hypertension 7. Hyperglycemia PLAN: 1. Continue antibiotics, Doxycycline, Rocephin and Azactam 2. Push oral fluids 3. The patient is DNR 4. The patient refuses nebs treatment 5. Intermittent IV Lasix will be given for fluid overload The patient is on Venti mask but wants to be on cannula so intermittently will use 4L of cannula. His oxygen saturation with 4L was 88% which is acceptable. The patient is being given Xanax 0.25 q.i.d. for restlessness and aggressive behavior which seems to be working to some extent. Morphine Sulfate 3 mg is being given for shortness of breath and panic. Seems to be working good too. He doesn't seem to be in distress. He is comfortable. PROGNOSIS: Poor. TIME SPENT: More than 30 minutes. Plan and coordination of the patient's care discussed in the presence of nurse. PAULIE
--- NOTE | 2017-02-20 15:29 | DS ---
DATE OF SERVICE: 02/18/17 - DISCHARGE FROM ACUTE FINAL DIAGNOSIS: 1. ACUTE RESPIRATORY FAILURE 2. PNEUMONIA 3. SEVERE CHRONIC LUNG DISEASE 4. CHF 5. ATRIAL FLUTTER/FIB 6. HYPERTENSION 7. DYSLIPIDEMIA 8. DIABETES MELLITUS DISCHARGE INSTRUCTIONS: Will follow on swing bed. MEDICATIONS AT DISCHARGE TO SWING BED: Eliquis 5 mg twice a day Diltiazem 120 twice a day Lasix 20 mg IV as needed Rocephin 1 gm q.24 Doxycycline 100 mg p.o. twice a day Azactam 1 gm IV twice a day The patient refuses nebs treatment. NEW PRESCRIPTIONS: None DIET INSTRUCTIONS: As tolerated ACTIVITY: Complete bedrest SMOKING: N/A DISEASE SPECIFIC EDUCATION: Swing bed admission for continued IV antibiotics Comfort care measures discussed Poor prognosis discussed HOSPITAL COURSE: 72-year-old white male hospitalized with acute respiratory fallure. The patient was aggressively treated with nebs treatment, steroids, antibiotics. The patient 's condition initially seemed to have improved but later on went into respiratory distress frequently and now he has ARDS type of picture which is not responding much to anything and on top of that the patient is very uncooperative, refused to wear the BIPAP. Also, pc02 was climbing higher and tiring out with shallow breaths. The patient has agreed to wear nasal cannula and intermittently Venti mask. He hates the Venti mask. Also he has refused any nebs treatment. He wants to be left alone. The family wants comfort measures. The patient was put on the swing bed because he may need continued antibiotics. Kidney functions have improved some. The patient's prognosis is poor. He is barely able to keep his oxygen saturation with 50% Venti mask to 90 to 95 and 88 to 90% with 4 to 5L. CONDITION: Critical PROGNOSIS: Poor TIME SPENT: More than 60 minutes. [facility]
== END 2017-02-18 16:45 | disposition swing bed (61) | DRG 189 ==
LOC: ED 21:04 → SCU 23:30
PROVIDERS: ADMIT Internal Medicine; ATTEND Internal Medicine
DX: J96.01 Acute respiratory failure with hypoxia (principal); J18.1 Lobar pneumonia, unspecified organism; J44.1 Chronic obstructive pulmonary disease with (acute) exacerbation; J44.0 Chronic obstructive pulmonary disease with (acute) lower respiratory infection; R06.02 Shortness of breath; I50.9 Heart failure, unspecified; I48.91 Unspecified atrial fibrillation; E87.5 Hyperkalemia; N19 Unspecified kidney failure; E11.9 Type 2 diabetes mellitus without complications; I10 Essential (primary) hypertension; E78.5 Hyperlipidemia, unspecified; R00.0 Tachycardia, unspecified; Z87.891 Personal history of nicotine dependence; Z79.84 Long term (current) use of oral hypoglycemic drugs; Z79.01 Long term (current) use of anticoagulants
CPT/HCPCS: 36415; 80053; 82550; 82803; 82962; 83605; 83880; 84145; 84484; 85025; 85379; 87040; 87070; 87081; 87804; 93005; 93010; 94640; 94660; 96361; 96365; 96366; 96375; 99285

== ENCOUNTER 2017-02-18 16:45 | Inpatient (IN) ==
[2017-02-18] MEDS: SOLU-MEDROL 125 MG IVP SCH (18:46)
[2017-02-18 21:55] VITALS: BMI 25.8
[2017-02-18] MEDS: AZACTAM 1 GM in SODIUM CHLORIDE 50 ML IV SCH (23:17)
[2017-02-18] MEDS: BETAPACE PO SCH (23:17)
[2017-02-18] MEDS: NON-FORMULARY MEDICATION (Diltiazem Hcl [Cardizem] 120 MG) PO SCH (23:18)
[2017-02-18] MEDS: ELIQUIS PO SCH (23:18)
[2017-02-18] MEDS: HUMULIN R SUBCUT PRN (23:19)
[2017-02-18] MEDS: XANAX PO SCH (23:20)
[2017-02-18] MEDS: SYMBICORT 160-4.5 MCG INHALER IH SCH (23:20)
[2017-02-18] MEDS: ROCEPHIN 1 GM in SODIUM CHLORIDE 50 ML IV SCH (23:56)
[2017-02-19] MEDS: SOLU-MEDROL 125 MG IVP SCH ×5 (00:48→23:34)
[2017-02-19] MEDS: DOXY-100 100 MG in SODIUM CHLORIDE 100 ML IV SCH ×3 (00:55→23:38)
[2017-02-19] MEDS: MORPHINE 4 MG/ML VIAL IVP PRN ×6 (02:32→23:35)
[2017-02-19] MEDS: HUMULIN R SUBCUT PRN ×2 (06:08→11:49)
[2017-02-19] MEDS: LASIX IVP SCH (06:08)
[2017-02-19] MEDS: AZACTAM 1 GM in SODIUM CHLORIDE 50 ML IV SCH ×2 (11:13→21:35)
[2017-02-19] MEDS: CARDIZEM PO SCH ×2 (11:17→21:48)
[2017-02-19] MEDS: ELIQUIS PO SCH ×2 (11:17→21:49)
[2017-02-19] MEDS: XANAX PO SCH ×3 (11:18→19:59)
[2017-02-19] MEDS: BETAPACE PO SCH ×2 (11:19→21:48)
[2017-02-19] MEDS: SYMBICORT 160-4.5 MCG INHALER IH SCH ×2 (11:20→21:50)
[2017-02-19] MEDS: ROCEPHIN 1 GM in SODIUM CHLORIDE 50 ML IV SCH ×2 (14:57→22:58)
[2017-02-19] MEDS: NON-FORMULARY MEDICATION (Diltiazem Hcl [Cardizem] 120 MG) PO SCH (14:57)
[2017-02-20] MEDS: MORPHINE 4 MG/ML VIAL IVP PRN ×5 (01:48→21:02)
[2017-02-20] MEDS: XANAX PO SCH ×4 (01:56→17:34)
[2017-02-20] MEDS: SOLU-MEDROL 125 MG IVP SCH ×5 (04:23→23:42)
[2017-02-20] MEDS: LASIX IVP SCH (05:53)
[2017-02-20] MEDS: CARDIZEM PO SCH ×2 (09:00→22:46)
[2017-02-20] MEDS: BETAPACE PO SCH ×2 (09:00→22:46)
[2017-02-20] MEDS: ELIQUIS PO SCH ×2 (09:00→22:47)
[2017-02-20] MEDS: SYMBICORT 160-4.5 MCG INHALER IH SCH ×2 (09:00→22:47)
[2017-02-20] MEDS: AZACTAM 1 GM in SODIUM CHLORIDE 50 ML IV SCH ×2 (09:03→21:02)
[2017-02-20] MEDS: DOXY-100 100 MG in SODIUM CHLORIDE 100 ML IV SCH ×2 (10:05→22:46)
--- NOTE | 2017-02-20 14:49 | HP ---
DATE OF SERVICE: 02/18/17 - SWING BED REASON FOR SWING BED HOSPITALIZATION: IV antibiotic therapy. HISTORY OF PRESENT ILLNESS: 72-year-old white male has been in acute care for acute respiratory failure with pneumonia. The patient has been treated with Doxycycline, Rocephin and Azactam. The patient's condition has deteriorated over the past 7 to 8 days after initial improvement. The patient had a couple bouts of CHF along with pneumonia. I think that has put him in acute respiratory distress syndrome type of picture. The patient has very heavy lungs with very decreased diminished breath sounds. He has refused BIPAP. He has even refused Venti mask. The patient is also being given IV steroids. Nebs treatment has been refused by the patient so they have been discontinued. IV antibiotics and oral antibiotics have been continued. His overall intake is very poor. PAST MEDICAL HISTORY: COPD Former smoker Diabetes mellitus Type 2 Dyslipidemia Obesity Hypertension History of atrial fib PAST SURGICAL HISTORY: None REVIEW OF SYSTEMS: CONSTITUTIONAL: Positive for malaise and weakness. No night sweats. No fever or chills. HEENT: Eyes: No blurry vision. No visual changes. No eye pain. No eye discharge. ENT: No runny nose. No epistaxis. No sinus pain. No sore throat. No odynophagia. No ear pain. No congestion. RESPIRATORY: Positive for shortness of breath, coughing. No hemoptysis. CARDIOVASCULAR: No angina symptoms. No CHF symptoms. No atypical chest pain for CAD. No palpitations. No orthopnea. The patient has leg edema. GASTROINTESTINAL: No abdominal pain. No nausea or vomiting. No diarrhea or constipation. No hematemesis. No hematochezia. GENITOURINARY: No urgency. No frequency. No dysuria. No hematuria. No obstructive symptoms. No discharge. No pain. No significant abnormal bleeding. MUSCULOSKELETAL: Positive for generalized weakness. No joint swelling or redness. NEUROLOGICAL: No headache. No neck pain. No syncope. No seizures. No confusion. No dizziness. PSYCHIATRIC: Not anxious. No depression. No suicidal thoughts. No homicidal thoughts. SKIN: Clean, dry and intact. No rashes. ENDOCRINE: No unexplained weight loss. No weight gain. HEMATOLOGIC/LYMPHATIC: No anemia. No purpura. No petechiae. No prolonged or excessive bleeding. No palpable lymph nodes. PERSONAL/FAMILY/SOCIAL HISTORY: The patient is a former smoker, he lives at home with his . He denies any alcohol or ilicit drug use. His is a current smoker. MEDICATIONS: Hydrochlorothiazide 12.5 mg p.o. daily Metformin 2,000 mg p.o. daily Zocor 80 mg p.o. daily Breo Ellipta 100=25 mcg INH one puff INH daily Ventolin HFA two puff IH q.i.d. p.r.n. Eliquis 5 mg p.o. b.i.d. K-Dur 20 mEq p.o. b.i.d. Diltiazem (Cardizem) 120 mg p.o. b.i.d. Prednisone 10 mg p.o. as directed Sotalol (Betapace) 80 mg p.o. b.i.d. Symbicort two puff IH b.i.d. ALLERGIES: NKDA PHYSICAL EXAMINATION: GENERAL: The patient seems to be oriented to place and person, sleepy drowsy. VITAL SIGNS: Temperature 98.6, pulse 60/min, respiratory rate 25, BP 150/70. Oxygen saturation 91% with 4L. HEENT: Face seems to be swollen. Head normocephalic, atraumatic. Eyes: Extraocular muscles are intact. Pupils are equal, round and reactive to light and accommodation. Ears: No lesions. Nose appeared normal. Throat: No exudate or erythema. NECK: Supple. No JVD, no carotid bruit. No lymphadenopathy or thyromegaly. LUNGS: Very diminished breath sounds with shallow respirations. Percussion note normal. Chest symmetrical. HEART: S1, S2, no S3. No murmurs. No cyanosis or clubbing. No ascites. Pulses: Dorsalis pedis and posterior tibial pulses +1 to +2 both sides. ABDOMEN: Protuberant. Soft. Nontender. Bowel sounds active. No CVA tenderness. No mass felt. EXTREMITIES: Trace edema. Full range of motion of all extremities, equal. NEUROLOGIC: No focal deficit. Cranial nerves II through XII are grossly intact. No headache, no double vision or headache. SKIN: Not dry. Intact. Turgor - normal. LYMPHATIC: No palpable lymph nodes/no lymphedema. MUSCULOSKELETAL: Normal joints with no swelling. Muscle tone is normal. ASSESSMENT: 1. ACUTE RESPIRATORY FAILURE WITH ACUTE RESPIRATORY DISTRESS SYNDROME WITH PNEUMONIA WITH BOUTS OF CHF 2. HYPERTENSION. 3. DYSLIPIDEMIA. 4. SEVERE CHRONIC LUNG DISEASE. 5. HISTORY OF SMOKING. PLAN: 1. Swing bed will be to continue IV antibiotics, Azactam and Rocephin along with p.o. Doxycycline. The patient has declined nebs. 2. IV steroids to be continued. 3. Declined Venti mask. 4. Will give oxygen via cannula. 5. Comfort measures. 6. IV Morphine Sulfate 3 mg every 4 to 6 hours for shortness of breath. CONDITION: Stable. TIME SPENT: More than 70 minutes. MTDD
--- NOTE | 2017-02-20 15:07 | PN ---
DATE OF SERVICE: 02/19/17 SUBJECTIVE: 72-year-old white male hospitalized with pneumonia, respiratory failure. The patient's condition improved initially but has deteriorated. He seems to be in acute respiratory distress syndrome with continued pneumonia on top of congestive heart failure that happened. The patient's kidney function has improved. It deteriorated with renal azotemia with aggressive diuretic therapy; diuretics have been backed off. The patient's condition seems to be improving a little with respiratory distress but the patient still has very poor air entry. He still is laboring some with each inspiration. His lung has very diminished breath sounds. Heart S1 , S2, no S3. LABS: Hemoglobin 17, hematocrit 56, WBC 10,000, normal differential. Creatinine 0.7, BUN 38. ASSESSMENT: 1. Acute respiratory failure 2. Acute respiratory distress syndrome 3. Pneumonia 4. Severe chronic lung disease 5. Congestive heart failure 6. Atrial flutter/fib paroxysmal 7. Hypertension 8. Dyslipidemia PLAN: The patient's family does not want any resusciative efforts. They want complete DNR. Also they do not want any BIPAP or any Venti mask. Also the patient is restless and throwing nasal cannula off and they would like to keep it off if it bothers the patient. They want total comfort measures. The daughter and mother walked into the office to talk to me and we had a long conversation, nearly 20 minutes and they want comfort measures so only would want him to continue with antibiotics. They would like to have hospice consult. Will give hospice consult and have comfort measures. Morphine Sulfate would be increased to 3 mg every couple of hours as needed p.r.n. For now will continue IV antibiotics. PROGNOSIS: Poor. CONDITION: Critical. TIME SPENT: More than 50 minutes. Plan and coordination of the patient's care discussed in the presence of nurse. PAULIE
[2017-02-20] MEDS: ROCEPHIN 1 GM in SODIUM CHLORIDE 50 ML IV SCH (22:04)
[2017-02-21] MEDS: XANAX PO SCH ×4 (01:52→16:59)
[2017-02-21] MEDS: MORPHINE 4 MG/ML VIAL IVP PRN ×3 (03:51→20:40)
[2017-02-21] MEDS: SOLU-MEDROL 125 MG IVP SCH ×3 (05:42→16:59)
[2017-02-21] MEDS: LASIX IVP SCH (05:42)
[2017-02-21] MEDS: AZACTAM 1 GM in SODIUM CHLORIDE 50 ML IV SCH ×2 (09:14→22:29)
[2017-02-21] MEDS: CARDIZEM PO SCH ×2 (09:15→20:35)
[2017-02-21] MEDS: ELIQUIS PO SCH ×2 (09:15→20:35)
[2017-02-21] MEDS: BETAPACE PO SCH ×2 (09:15→20:34)
[2017-02-21] MEDS: SYMBICORT 160-4.5 MCG INHALER IH SCH ×2 (09:16→20:36)
[2017-02-21] MEDS: DOXY-100 100 MG in SODIUM CHLORIDE 100 ML IV SCH ×2 (10:25→23:24)
[2017-02-21] MEDS: ROCEPHIN 1 GM in SODIUM CHLORIDE 50 ML IV SCH (20:34)
[2017-02-22] MEDS: SOLU-MEDROL 125 MG IVP SCH ×2 (00:30→10:46)
[2017-02-22] MEDS: MORPHINE 4 MG/ML VIAL IVP PRN (00:31)
[2017-02-22] MEDS: XANAX PO SCH ×4 (00:31→17:11)
[2017-02-22] MEDS: AZACTAM 1 GM in SODIUM CHLORIDE 50 ML IV SCH (08:32)
--- NOTE | 2017-02-22 08:38 | ED.PDOC ---
Procedures - IV/Art Line Insertion Location: LT upper arm Type of Line: Peripheral IV Invasive Line/IV Catheter Gauge: 24 Number of Attempts: 2 Blood Return Positive: Yes Invasive Line/IV Flushes Without Difficulty: Yes Conscious Sedation - Pre-op Assessment Weight: 175 lb Surgical History: NOTHING - Medical History Past Medical History: Diabetes, High Lipids, COPD
[2017-02-22] MEDS: DOXY-100 100 MG in SODIUM CHLORIDE 100 ML IV SCH (09:51)
[2017-02-22] MEDS: SYMBICORT 160-4.5 MCG INHALER IH SCH ×2 (09:52→21:59)
[2017-02-22] MEDS: ELIQUIS PO SCH ×2 (09:52→22:02)
[2017-02-22] MEDS: BETAPACE PO SCH ×2 (09:52→22:02)
[2017-02-22] MEDS: CARDIZEM PO SCH ×2 (09:52→22:02)
[2017-02-22] MEDS ORDERED: LIDOCAINE VISCOUS 2% 15 ML UD MUCOUSMEMB PRN (10:08)
[2017-02-22] MEDS: LASIX IVP SCH (10:46)
[2017-02-22] MEDS ORDERED: XOPENEX 1.25 MG NEB PRN (11:01)
[2017-02-22] MEDS ORDERED: LIDOCAINE HCL 1% SDV SUBCUT STA (11:50)
[2017-02-22] MEDS: NYSTATIN ORAL SUSP PO SCH ×2 (17:11→21:57)
[2017-02-22] MEDS: DECADRON 4 MG/ML SDV IM SCH (21:58)
[2017-02-22] MEDS: ROCEPHIN IM SCH (21:58)
[2017-02-22] MEDS: DOXYCYCLINE HYCLATE PO SCH (21:58)
[2017-02-22] MEDS: AZACTAM IM SCH (21:58)
[2017-02-23] MEDS: XANAX PO SCH ×5 (01:23→23:46)
[2017-02-23] MEDS: MORPHINE 2 MG/ML SYRINGE IM PRN (02:00)
[2017-02-23] MEDS: NYSTATIN ORAL SUSP PO SCH ×4 (06:20→22:06)
[2017-02-23] MEDS: LASIX TAB PO SCH (06:21)
[2017-02-23] MEDS: CARDIZEM PO SCH ×2 (10:21→22:07)
[2017-02-23] MEDS: BETAPACE PO SCH ×2 (10:22→22:07)
[2017-02-23] MEDS: ELIQUIS PO SCH ×2 (10:22→22:07)
[2017-02-23] MEDS: SYMBICORT 160-4.5 MCG INHALER IH SCH ×2 (10:22→22:13)
[2017-02-23] MEDS: DECADRON 4 MG/ML SDV IM SCH ×2 (10:30→22:06)
[2017-02-23] MEDS: AZACTAM IM SCH ×2 (10:31→22:05)
[2017-02-23] MEDS: DOXYCYCLINE HYCLATE PO SCH ×2 (10:31→22:06)
[2017-02-23] MEDS ORDERED: LASIX IM STA (12:43)
[2017-02-23] MEDS ORDERED: CITRATE OF MAGNESIA PO STA (16:39)
[2017-02-23] MEDS: ROCEPHIN IM SCH (22:05)
[2017-02-23] MEDS ORDERED: LIDOCAINE HCL 1% SDV ONE (22:05)
[2017-02-24] MEDS: XANAX PO SCH ×3 (05:59→22:11)
[2017-02-24] MEDS: NYSTATIN ORAL SUSP PO SCH ×4 (05:59→22:09)
[2017-02-24] MEDS: LASIX TAB PO SCH (05:59)
[2017-02-24] MEDS ORDERED: CITRATE OF MAGNESIA PO STA (09:04)
[2017-02-24] MEDS ORDERED: DULCOLAX RC STA (09:05)
--- NOTE | 2017-02-24 09:25 | PCM.PROG ---
Attending Provider: ATTENDING PROVIDER: Dr. LIGIA LONDON DATE OF SERVICE: 02/24/17 SUBJECTIVE: This 72 year old WHITE/ M was hospitalized 02/18/17. The patient is hospitalized with pneumonia and respiratory failure. The patient has been on swing bed with triple antibiotics. IV sites have been difficult so he has been on IM Azactam, Rocephin, and p.o. Doxycycline. Condition seems to be improving. With 2L oxygen, saturation is staying up to 90%. He is eating much better; still not up to par but much better than before. Liver function is elevated off and on. will follow. He is not able to have further workup such as GI consultation; no other acute findings. Will follow this. The patient hasn't had a bowel movement since the ; will treat. REVIEW OF SYSTEMS: CONSTITUTIONAL: Weakness. No night sweats. No fever or chills. HEENT: Eyes: No visual changes. No eye pain. No eye discharge. ENT: No runny nose. No epistaxis. No sinus pain. No odynophagia. No congestion. RESPIRATORY: No cough, no congestion. No hemoptysis. No shortness of breath. CARDIOVASCULAR: No angina symptoms. No CHF symptoms. No atypical chest pain for CAD. No palpitations. No orthopnea.. GASTROINTESTINAL: No abdominal pain. No nausea or vomiting. No diarrhea or constipation. No hematemesis. No hematochezia. GENITOURINARY: No urgency. No frequency. No dysuria. No hematuria. No obstructive symptoms. No discharge. No pain. No significant abnormal bleeding. MUSCULOSKELETAL: No musculoskeletal pain; no joint swelling. NEUROLOGICAL: Awake, alert, oriented to time, place and person. No headache. No neck pain. No syncope. No seizures. No dizziness. PSYCHIATRIC: Not anxious. No depression. No suicidal thoughts. No homicidal thoughts. SKIN: No rash. No lesions. No wounds. ENDOCRINE: No unexplained weight loss. No weight gain. HEMATOLOGIC/LYMPHATIC: No anemia. No purpura. No petechiae. No prolonged or excessive bleeding. No palpable lymph nodes. PHYSICAL EXAMINATION: GENERAL: The patient is awake, alert and oriented, lying in bed in no distress. VITAL SIGNS: Temperature 96 F, Pulse 62, Respiratory Rate 20, BP 122/80, Pulse Ox 90% HEENT: Head normocephalic, atraumatic. Eyes: Extraocular muscles are intact. Pupils are equal, round and reactive to light and accommodation. Ears: No lesions. Nose appeared normal. Throat: No exudate or erythema. NECK: Supple. No JVD, no carotid bruit. No lymphadenopathy or thyromegaly. LUNGS: Decreased breath sounds but more air entry than before but still shallow breathing. Percussion note normal. Chest symmetrical. HEART: S1, S2, no S3. No murmurs. No cyanosis or clubbing. No ascites. Pulses: Dorsalis pedis and posterior tibial pulses +1 to +2 both sides. ABDOMEN: Soft. Non-tender. Bowel sounds active. No CVA tenderness. No mass felt. EXTREMITIES: No edema. Full range of motion of all extremities, equal. NEUROLOGIC: No focal deficit. Cranial nerves II through XII are grossly intact. No headache, no double vision or headache. SKIN: Not dry. Intact. Turgor-normal. LYMPHATIC: No palpable lymph nodes/no lymphedema. MUSCULOSKELETAL: Normal joints with no swelling. Muscle tone is normal. LAB REVIEW: 02/24/17 04:30 02/24/17 04:30 02/24/17 04:30: Sodium 140, Potassium 4.7, Chloride 92 L, Carbon Dioxide 43 H*, Anion Gap 9.7, BUN 36 H, Creatinine 0.61, Estimated GFR (MDRD) 130.00, BUN/ Creatinine Ratio 59.01, Glucose 236 H, Calcium 9.1, Total Bilirubin 0.5, AST 95 H, ALT 368 H D, Alkaline Phosphatase 116 D, Total Protein 5.8, Albumin 2.2 L, Globulin 3.6, Albumin/Globulin Ratio 0.61 02/24/17 04:30: WBC 22.02 H, RBC 5.96, Hgb 17.0, Hct 53.1 H, MCV 89.1, MCH 28.5 , MCHC 32.0, RDW Coeff of Iván 13.8, Plt Count 159, Immature Gran % (Auto) 0.7, Neut % (Auto) 91.2, Lymph % (Auto) 2.0 L, Carver % (Auto) 6.0, Eos % (Auto) 0.0, Baso % (Auto) 0.1, Immature Gran # (Auto) 0.2, Neut # 20.1 H, Lymph # 0.4 L, Carver # 1.3, Eos # 0.0, Baso # 0.0 ASSESSMENT: 1. Pneumonia seems to be resolving 2. ARDS/acute respiratory distress symptoms seems to be resolving slowly 3. Chronic lung disease 4. Renal aztoemia 5. Chronic respiratory failure 6. Constipation PLAN: 1. Continue all antibiotics, steroids IM 2. Will start Eliquis 3. Xopenex q.6hr p.r.n. The patient agrees along with family members 4. Xanax q.8hr 5. Mag Citrate 1/2 bottle 6. Dulcolax suppository if no results from mag citrate Plan and coordination of the patient's care discussed in the presence of Poultry Sexer and nurse. CONDITION: Stable SCRIBED BY: MARLIN GRAY [employer] scribed while in presence of service performed by Dr. LIGIA LONDON on 02/24/17 ([id number])
[2017-02-24] MEDS: AZACTAM IM SCH ×2 (09:31→22:11)
[2017-02-24] MEDS: DOXYCYCLINE HYCLATE PO SCH ×2 (09:32→22:12)
[2017-02-24] MEDS: DECADRON 4 MG/ML SDV IM SCH ×2 (09:32→22:10)
[2017-02-24] MEDS: ELIQUIS PO SCH ×2 (09:32→22:11)
[2017-02-24] MEDS: CALMOSEPTINE OINTMENT TP SCH ×4 (09:33→22:11)
[2017-02-24] MEDS: BETAPACE PO SCH (09:33)
[2017-02-24] MEDS: SYMBICORT 160-4.5 MCG INHALER IH SCH ×2 (09:33→22:09)
[2017-02-24] MEDS: CARDIZEM PO SCH (09:33)
[2017-02-24] MEDS: XOPENEX 1.25 MG NEB SCH ×3 (11:10→23:45)
--- NOTE | 2017-02-24 14:39 | PN ---
DATE OF SERVICE: 02/22/17 SUBJECTIVE: 72 year old white male in the swing with acute respiratory failure, pneumonia. The patient's condition seems to be improved to some extent. He talked to me for at least 2-3 minutes, opened the eyes and oriented to time, place and person. He says that he is feeling better. Daughter is in the room. The patient is eating a lot of yogurt and also juices and drinking fluids. REVIEW OF SYSTEMS: CONSTITUTIONAL: No night sweats. No fatigue, malaise, lethargy. No fever or chills. HEENT: Eyes: No visual changes. No eye pain. No eye discharge. ENT: No runny nose. No epistaxis. No sinus pain. No sore throat. No odynophagia. No congestion. RESPIRATORY: No cough, no congestion. No hemoptysis. No shortness of breath. CARDIOVASCULAR: No angina symptoms. No CHF symptoms. No atypical chest pain for CAD. No palpitations. No orthopnea. GASTROINTESTINAL: No abdominal pain. No nausea or vomiting. No diarrhea or constipation. No hematemesis. No hematochezia. GENITOURINARY: No urgency. No frequency. No dysuria. No hematuria. No obstructive symptoms. No discharge. No pain. No significant abnormal bleeding. MUSCULOSKELETAL: No musculoskeletal pain; no joint swelling. NEUROLOGICAL: No headache. No neck pain. No syncope. No seizures. No dizziness. PSYCHIATRIC: Not anxious. No depression. No suicidal thoughts. No homicidal thoughts. SKIN: No rash. No lesions. No wounds. ENDOCRINE: No unexplained weight loss. No weight gain. HEMATOLOGIC/LYMPHATIC: No anemia. No purpura. No petechiae. No prolonged or excessive bleeding. No palpable lymph nodes. PHYSICAL EXAMINATION: GENERAL: The patient is oriented to time, place and person. VITAL SIGNS: Pulse ox 94% on 3 liters. Blood pressure 129/73. HEENT: Head normocephalic, atraumatic. Eyes: Extraocular muscles are intact. Pupils are equal, round and reactive to light and accommodation. Ears: No lesions. Nose appeared normal. Throat: No exudate or erythema. NECK: Supple. No JVD, no carotid bruit. No lymphadenopathy or thyromegaly. LUNGS: Still mild wheeze expiratory but better air entry then before. Clear to auscultation. Percussion note normal. Chest symmetrical. HEART: S1, S2, no S3. No murmurs. No cyanosis or clubbing. No ascites. Pulses: Dorsalis pedis and posterior tibial pulses +1 to +2 both sides. ABDOMEN: Soft. Nontender. Bowel sounds active. No CVA tenderness. No mass felt. EXTREMITIES: No edema. Full range of motion of all extremities, equal. NEUROLOGIC: No focal deficit. Cranial nerves II through XII are grossly intact. No headache, no double vision or headache. SKIN: Not dry. Intact. Turgor - normal. LYMPHATIC: No palpable lymph nodes/no lymphedema. MUSCULOSKELETAL: Normal joints with no swelling. Muscle tone is normal. LABS: Hgb 16, hct 53, WBC 17,000 normal differential, creatinine 0.7, BUN 45. Difficult IV access line - associate programmer was able to start it in axillary area after that there is no access left. He recommended pig line which patient's family and patient declined. ASSESSMENT: 1. Pneumonia, improvement 2. Respiratory status, improved 3. Cardiac status is stable with no evidence of CHF. Rhythm is 60 per minute and heart rate. PLAN: 1. Convert all the medication IM like Rocephin IM, Decadron IM 2. Discontinue IV steroids 3. Azactam to be given IM 4. IV Doxycycline discontinued 5. Start Doxycycline PO 6. Morphine Sulfate PO 7. Nystatin by mouth The also in the room, explained about the findings that the patient's status is getting better. CONDITION: Stabilizing. TIME SPENT: More than 30 minutes. Plan and coordination of the patient's care discussed in the presence of nurse. PAULIE
[2017-02-24] MEDS: ROCEPHIN IM SCH (22:10)
[2017-02-24] MEDS ORDERED: LIDOCAINE HCL 1% SDV ONE (22:10)
[2017-02-25] MEDS: MORPHINE 2 MG/ML SYRINGE IM PRN (01:04)
[2017-02-25] MEDS: XANAX PO SCH ×3 (04:25→21:17)
[2017-02-25] MEDS: XOPENEX 1.25 MG NEB SCH ×4 (05:21→22:54)
[2017-02-25] MEDS: LASIX TAB PO SCH (05:39)
[2017-02-25] MEDS: NYSTATIN ORAL SUSP PO SCH ×4 (05:39→21:22)
--- NOTE | 2017-02-25 09:33 | PN ---
DATE OF SERVICE: 02/21/17 SUBJECTIVE: 72 year old white male hospitalized with acute respiratory failure and pneumonia. The patient's condition deteriorated and has been put on the swing bed for the IV antibiotics Rocephin and Azactam and Doxycycline. The patient has already been referred to Hospice. The patient wasn't accepted but they are waiting for the second appeal. The patient's family is happy to some extent because the patient is talking and making sense. He talked to me. He has been eating a lot of yogurt. This is the first time after 5-6 days he has some oral intake. His cardiovascular status is stable with no deterioration. REVIEW OF SYSTEMS: CONSTITUTIONAL: No night sweats. No fatigue, malaise, lethargy. No fever or chills. HEENT: Eyes: No visual changes. No eye pain. No eye discharge. ENT: No runny nose. No epistaxis. No sinus pain. No sore throat. No odynophagia. No congestion. RESPIRATORY: No cough, no congestion. No hemoptysis. No shortness of breath. CARDIOVASCULAR: No angina symptoms. No CHF symptoms. No atypical chest pain for CAD. No palpitations. No orthopnea. GASTROINTESTINAL: No abdominal pain. No nausea or vomiting. No diarrhea or constipation. No hematemesis. No hematochezia. GENITOURINARY: No urgency. No frequency. No dysuria. No hematuria. No obstructive symptoms. No discharge. No pain. No significant abnormal bleeding. MUSCULOSKELETAL: No musculoskeletal pain; no joint swelling. NEUROLOGICAL: No headache. No neck pain. No syncope. No seizures. No dizziness. PSYCHIATRIC: Not anxious. No depression. No suicidal thoughts. No homicidal thoughts. SKIN: No rash. No lesions. No wounds. ENDOCRINE: No unexplained weight loss. No weight gain. HEMATOLOGIC/LYMPHATIC: No anemia. No purpura. No petechiae. No prolonged or excessive bleeding. No palpable lymph nodes. PHYSICAL EXAMINATION: HEENT: Head normocephalic, atraumatic. Eyes: Extraocular muscles are intact. Pupils are equal, round and reactive to light and accommodation. Ears: No lesions. Nose appeared normal. Throat: No exudate or erythema. NECK: Supple. No JVD, no carotid bruit. No lymphadenopathy or thyromegaly. LUNGS: Breath sounds are decreased with shallow breathing. Percussion note normal. Chest symmetrical. HEART: S1, S2, no S3. No murmurs. No cyanosis or clubbing. No ascites. Pulses: Dorsalis pedis and posterior tibial pulses +1 to +2 both sides. ABDOMEN: Soft. Nontender. Bowel sounds active. No CVA tenderness. No mass felt. EXTREMITIES: No edema. Full range of motion of all extremities, equal. NEUROLOGIC: No focal deficit. Cranial nerves II through XII are grossly intact. No headache, no double vision or headache. SKIN: Not dry. Intact. Turgor - normal. LYMPHATIC: No palpable lymph nodes/no lymphedema. MUSCULOSKELETAL: Normal joints with no swelling. Muscle tone is normal. LABS: Hgb 17.4, hct 56, WBC 10,000 normal differential, creatinine 0.7, BUN 38, potassium 3.9 ASSESSMENT: 1. Acute respiratory failure, the patient is not wear oxygen at time, depending upon what his mood is. He is has allowed not to do that because that is what the patient and family wishes. PLAN: 1. Will continue antibiotics and steroids 2. The patient has declined NEBS treatment CONDITION: Stable PROGNOSIS: Poor , very slight improvement in his respiratory status and overall status. TIME SPENT: More than 30 minutes. Plan and coordination of the patient's care discussed in the presence of nurse. PAULIE
[2017-02-25] MEDS: AZACTAM IM SCH ×2 (09:34→21:19)
[2017-02-25] MEDS: DECADRON 4 MG/ML SDV IM SCH ×2 (09:34→21:19)
[2017-02-25] MEDS: SYMBICORT 160-4.5 MCG INHALER IH SCH ×2 (09:34→21:17)
[2017-02-25] MEDS: DOXYCYCLINE HYCLATE PO SCH ×2 (09:35→21:17)
[2017-02-25] MEDS: ELIQUIS PO SCH ×2 (09:35→21:20)
[2017-02-25] MEDS: CALMOSEPTINE OINTMENT TP SCH ×4 (09:36→21:18)
--- NOTE | 2017-02-25 17:03 | RS.PTINEVL ---
Subjective - Patient information Date of Evaluation: 02/25/17 Date of Arrival on Unit: 02/18/17 Admitted From:: Home Diagnosis: acute respiratory failure, acute resp distress syndrome with pneumonia Usual Living Arrangement: With Spouse Home Environment: House, Stairs (few) Medical History: Hypertension, Diabetes, CHF Medical History Comments:: chronic lung disease, afib LATEX ALLERGY?: No Subjective Information/ Patient Comments:: pt states he will try to work with therapy. states he needs to move a little to improve strength and circulation. - Level of function Current Level of Function: Independent Comments: pt states he was independent with amb without AD prior to admit, limited due to breathing. Interventions - Objective Patient Orientation: Person, Place Current Interventions: IV's, Oxygen, Telemetry, Fried Catheter Range of Motion - ROM Right Upper Extremity AROM: WFL's Left Upper Extremity AROM: WFL's Right Lower Extremity AROM: WFL's Left Lower Extremity AROM: WFL's Comments:: pt grimaces with pain with ROM all 4 extr's. Cervical L rotation and extension limited due to significant muscle tightness and pain. Muscle Strength - Muscle Strength Right Upper Extremity Strength: Severe Weakness Left Upper Extremity Strength: Severe Weakness Right Lower Extremity Strength: Severe Weakness Left Lower Extremity Strength: Severe Weakness Comments:: difficult to MMT due to pt medical condition. pt BUE grossly 2+/5, BLE grossly 2+/5 Sensation - Sensation Right Upper Extremity Sensation: Intact/Normal Left Upper Extremity Sensation: Intact/Normal Right Lower Extremity Sensation: Intact/Normal Left Lower Extremity Sensation: Intact/Normal Palpation Palpation Findings: Tenderness (cervical paraspinal muscles.), Muscle Guarding Balance - Sitting Balance and Reactions Static Sitting Balance: Poor Dynamic Sitting Balance: Poor Sitting Equilibrium Reactions: Absent Left, Absent Right Sitting Protective Reactions: Absent Left, Absent Right - Comments Balance Assessment Comments: pt unable to maintain sitting balance without mod assist of 1. Treatment time - Time with patient Total treatment time: 24 Patient Education - Education Patient Education: Activity Modification, Education of Plan of Care Teaching Recipient: Patient, Family Teaching Methods: Discussion Comments: discussion with pt and regarding POC to include ROM all 4 extremities, bed mobility, sitting balance as well as modalities to cervical spine and gentle stretching to decrease cervical pain. Assessment - Assessment Problem List:: Decreased level of function, Requires training/education, Decreased safety/Risk of falls, Weakness, Cognitive status limits abilities Rehab Potential: Fair (Feel pt rehab potential is limited due to medical condition, however feel pt would benefit from skilled PT for bed mobility, therex for ROM and strengthening, progressing to transfers if appropriate to improve resp status and quality of life.) Further Therapy Indicated?: Yes Short Term Goals GOAL #1: Improve BUE strength to 3/5, BLE 3-/5 Goal to be met by: 02/28/17 GOAL #2: pt perform rolling with mod x 1 using bed rails Goal to be met by: 02/28/17 GOAL #3: pt transfer sup to/from sit mod x 2 Goal to be met by: 02/28/17 Custodial Goals GOAL #1: Improved strength grossly 3+ to 4-/5 Goal to be met by: 03/04/17 GOAL #2: pt able to sit at side of bed x 2 mins unsupported Goal to be met by: 03/04/17 GOAL #3: Cervical ROM improved to allow for functional ROM with decreased pain. Goal to be met by: 03/04/17 Plan Plan of Care: Therapeutic EX, Neuromuscular Re-Educ, Therapeutic Activity, Self- Care/Home Management Modalities: Hot Pack, Cold Pack/Cryotherapy, Ultrasound, Electrical Stimulation Frequency of Treatment: 1-2 X day, as tolerated Duration of Treatment: 1 Week Anticipated Discharge Destination: Home Has the Physician been added for Co-signature?: Yes
[2017-02-25] MEDS ORDERED: LIDOCAINE 2% 20 ML MDV ONE (20:59)
[2017-02-25] MEDS: ROCEPHIN IM SCH (21:19)
[2017-02-25] MEDS ORDERED: LIDOCAINE HCL 1% SDV ONE (21:19)
[2017-02-25] MEDS ORDERED: LIDOCAINE 2% 20 ML MDV INJ SCH (21:30)
[2017-02-26] MEDS: XOPENEX 1.25 MG NEB SCH ×4 (04:15→22:48)
[2017-02-26] MEDS: XANAX PO SCH ×2 (05:30→13:07)
[2017-02-26] MEDS: NYSTATIN ORAL SUSP PO SCH ×4 (05:30→21:00)
[2017-02-26] MEDS: LASIX TAB PO SCH (05:30)
[2017-02-26] MEDS ORDERED: LASIX IVP STA (09:09)
[2017-02-26] MEDS: AZACTAM IM SCH ×2 (09:10→21:01)
[2017-02-26] MEDS: CALMOSEPTINE OINTMENT TP SCH ×4 (09:11→21:00)
[2017-02-26] MEDS: DECADRON 4 MG/ML SDV IM SCH ×2 (09:11→21:00)
[2017-02-26] MEDS: DOXYCYCLINE HYCLATE PO SCH ×2 (09:11→21:00)
[2017-02-26] MEDS: ELIQUIS PO SCH ×2 (09:11→21:00)
[2017-02-26] MEDS: SYMBICORT 160-4.5 MCG INHALER IH SCH ×2 (09:12→21:06)
[2017-02-26] MEDS: CITRATE OF MAGNESIA PO STA ×2 (09:27→19:31)
[2017-02-26] MEDS ORDERED: LASIX IM STA (09:38)
[2017-02-26] MEDS ORDERED: METAMUCIL PO PRN (13:34)
[2017-02-26] MEDS ORDERED: CITRATE OF MAGNESIA PO PRN (19:26)
[2017-02-26] MEDS: ROCEPHIN IM SCH (21:01)
[2017-02-26] MEDS: LIDOCAINE HCL 1% SDV IM SCH (21:40)
[2017-02-26] MEDS: XANAX PO PRN (22:55)
[2017-02-27] MEDS: XOPENEX 1.25 MG NEB SCH ×3 (04:19→16:45)
[2017-02-27] MEDS: LASIX TAB PO SCH (05:40)
[2017-02-27] MEDS: NYSTATIN ORAL SUSP PO SCH ×4 (05:40→21:23)
[2017-02-27] MEDS: DECADRON 4 MG/ML SDV IM SCH ×2 (08:38→21:23)
[2017-02-27] MEDS: AZACTAM IM SCH (08:39)
[2017-02-27] MEDS: ELIQUIS PO SCH ×2 (08:39→21:23)
[2017-02-27] MEDS: DOXYCYCLINE HYCLATE PO SCH ×2 (08:39→21:23)
[2017-02-27] MEDS: SYMBICORT 160-4.5 MCG INHALER IH SCH ×2 (08:44→21:24)
[2017-02-27] MEDS: CALMOSEPTINE OINTMENT TP SCH ×4 (08:44→21:23)
[2017-02-27] MEDS: MORPHINE 2 MG/ML SYRINGE IM PRN (12:30)
--- NOTE | 2017-02-27 14:53 | RS.OTINEVL ---
Subjective - Patient information Date of Evaluation: 02/27/17 Date of Arrival on Unit: 02/18/17 Admitted From:: Home Usual Living Arrangement: With Spouse Living Arrangement Comments: Pt lives at home with his . Pt was walking without an assistive device. Pt was living at home months ago without oxygen. In the past few months he has been on 2 liters of O2 at [facility]. Home Environment: House, Stairs (few) Medical History: Hypertension, Diabetes, CHF Medical History Comments:: chronic lung disease, afib LATEX ALLERGY?: No Surgical History: Tonsillectomy - Level of function Current Equipment Used at Home: FAMILY NOT PRESENT DURING ADMIT Pain Assessment - Pain Pain Score: 0 Interventions - Objective Patient Orientation: Person, Place, Situation Current Interventions: IV's, Oxygen, Telemetry Observation: Pt sitting in bed with heels on bed and pillow under his calves. OT floated his BLE heels. Pt was repositioned with more pillows under the LUE hand to decrease the edema. Heat to the neck to increase cervical extension. Interventions - ROM Right Upper Extremity AROM: WFL's Left Upper Extremity AROM: Moderate limitation - Strength Right Upper Extremity Strength: Mild Weakness Left Upper Extremity Strength: Severe Weakness - Sensation Right Upper Extremity Sensation: Intact/Normal Left Upper Extremity Sensation: Intact/Normal Balance - Sitting Balance Static Sitting Balance: Fair Dynamic Sitting Balance: Fair - Standing Balance Static Standing Balance: Poor Dynamic Standing Balance: Poor ADL Skills - Self Feeding Self Feeding: Supervision - Grooming Grooming: Mod Assist - Bathing Bathing UE: Mod Assist Bathing LE: Max Assist - Dressing Dressing UE: Mod Assist Dressing LE: Max Assist - Toilet Management Toileting Management: Not Tested Functional Mobility - Bed Mobility Rolling R/L: Mod Assist Scooting: Mod Assist Supine to Sit: Mod Assist Sit to Supine: Max Assist - Transfers Sit to Stand: Not Tested Stand to Sit: Not Tested Stand Pivot Transfers: Not Tested - Ambulation Weight Bearing Status: FWB Assistive Device Used: Mechanical Lift Assistance needed with Ambulation: Not Tested - Safety Awareness Safety Awareness: Fair Additional Treatment Performed - Time with patient Total treatment time: 19 Activities Patient Interests:: Watching Television Patient Education Patient Education: Education of diagnosis, Body/Joint mechanics, Home Exercise Program, Education of Plan of Care Teaching Recipient: Patient Teaching Methods: Teach Back Method Used, Discussion, Demonstration Assessment Problem List:: Decreased level of function Rehab Potential: Good Further Therapy Indicated?: Yes Short Term Goals - Goals GOAL 1: Pt to increase sitting balance EOB to Good. Goal to be met by: 03/06/17 GOAL 2: Pt to increase sit to stand Moderate assistance of 2. Goal to be met by: 03/06/17 GOAL 3: Pt to increase activity tolerance to 15 minutes with rests PRN. Goal to be met by: 03/06/17 Senior Linux Administrator Goals GOAL 1: Pt to increase sitting balance EOB to Good+. Goal to be met by: 03/13/17 GOAL 2: Pt to increase sit to stand CGA for sink level ADLS. Goal to be met by: 03/13/17 GOAL 3: Pt to increase activity tolerance to 20 minutes with rests PRN. Goal to be met by: 03/13/17 Plan Plan of Care: Therapeutic EX, Neuromuscular Re-Educ, Therapeutic Activity, Self- Care/Home Management Modalities: Hot Pack Frequency of Treatment: BID Duration of Treatment: 2 Weeks Anticipated Discharge Destination: Home Has the Physician been added for Co-signature?: Yes
[2017-02-27] MEDS: ROCEPHIN IM SCH (21:22)
[2017-02-27] MEDS: LIDOCAINE HCL 1% SDV IM SCH (21:26)
[2017-02-27] MEDS: XANAX PO PRN (23:02)
[2017-02-28] MEDS: XOPENEX 1.25 MG NEB SCH ×5 (00:16→23:26)
[2017-02-28] MEDS: MORPHINE 2 MG/ML SYRINGE IM PRN (02:02)
[2017-02-28] MEDS: LASIX TAB PO SCH (05:59)
[2017-02-28] MEDS: NYSTATIN ORAL SUSP PO SCH ×4 (05:59→20:55)
[2017-02-28] MEDS: ELIQUIS PO SCH ×2 (09:56→20:55)
[2017-02-28] MEDS: CALMOSEPTINE OINTMENT TP SCH ×4 (09:56→20:55)
[2017-02-28] MEDS: DOXYCYCLINE HYCLATE PO SCH ×2 (09:57→20:55)
[2017-02-28] MEDS: DECADRON 4 MG/ML SDV IM SCH ×2 (09:57→20:54)
[2017-02-28] MEDS: SYMBICORT 160-4.5 MCG INHALER IH SCH ×2 (09:57→20:53)
[2017-02-28] MEDS: ROCEPHIN IM SCH (20:53)
[2017-02-28] MEDS: LIDOCAINE HCL 1% SDV IM SCH (20:54)
[2017-02-28] MEDS: XANAX PO PRN (22:42)
[2017-03-01] MEDS: XOPENEX 1.25 MG NEB SCH ×4 (05:54→22:06)
[2017-03-01] MEDS: LASIX TAB PO SCH (06:09)
[2017-03-01] MEDS: NYSTATIN ORAL SUSP PO SCH ×4 (06:09→20:23)
[2017-03-01] MEDS: CALMOSEPTINE OINTMENT TP SCH ×4 (08:48→20:22)
[2017-03-01] MEDS: ELIQUIS PO SCH ×2 (08:48→20:24)
[2017-03-01] MEDS: DOXYCYCLINE HYCLATE PO SCH ×2 (08:48→20:24)
[2017-03-01] MEDS: DECADRON 4 MG/ML SDV IM SCH ×2 (08:48→20:23)
[2017-03-01] MEDS: SYMBICORT 160-4.5 MCG INHALER IH SCH ×2 (08:49→20:26)
[2017-03-01] MEDS: XANAX PO PRN (20:25)
[2017-03-01] MEDS: LIDOCAINE HCL 1% SDV IM SCH (20:25)
[2017-03-01] MEDS: ROCEPHIN IM SCH (20:26)
[2017-03-02] MEDS: XANAX PO PRN ×2 (00:30→21:36)
[2017-03-02] MEDS: XOPENEX 1.25 MG NEB SCH ×4 (04:51→23:14)
[2017-03-02] MEDS: NYSTATIN ORAL SUSP PO SCH ×4 (06:19→21:36)
[2017-03-02] MEDS: LASIX TAB PO SCH (06:19)
[2017-03-02] MEDS: ELIQUIS PO SCH ×2 (08:10→21:36)
[2017-03-02] MEDS: DECADRON 4 MG/ML SDV IM SCH (08:10)
[2017-03-02] MEDS: DOXYCYCLINE HYCLATE PO SCH ×2 (08:10→21:36)
[2017-03-02] MEDS: CALMOSEPTINE OINTMENT TP SCH ×4 (08:11→21:35)
[2017-03-02] MEDS: SYMBICORT 160-4.5 MCG INHALER IH SCH ×2 (08:13→21:35)
[2017-03-02] MEDS: SENNA PO SCH ×2 (12:16→21:36)
[2017-03-02] MEDS: ROCEPHIN IM SCH (21:35)
[2017-03-02] MEDS: XALATAN OP SCH (21:38)
[2017-03-02] MEDS: LIDOCAINE HCL 1% SDV IM SCH (21:39)
[2017-03-03] MEDS: XOPENEX 1.25 MG NEB SCH ×4 (04:33→23:10)
[2017-03-03] MEDS: LASIX TAB PO SCH (05:49)
[2017-03-03] MEDS: NYSTATIN ORAL SUSP PO SCH ×4 (05:49→21:14)
--- NOTE | 2017-03-03 07:39 | PN ---
DATE OF SERVICE: 02/26/17 SUBJECTIVE: The patient is sitting up and talking to me. He is thanking me for taking care of him. PHYSICAL EXAMINATION: GENERAL: The patient is oriented to time, place and person. HEENT: Head normocephalic, atraumatic. Eyes: Extraocular muscles are intact. Pupils are equal, round and reactive to light and accommodation. Ears: No lesions. Nose appeared normal. Throat: No exudate or erythema. NECK: Supple. No JVD, no carotid bruit. No lymphadenopathy or thyromegaly. LUNGS: Decreased breath sounds but has more air entry than before. Still weak. Percussion note normal. Chest symmetrical. No symptoms of CHF but has some fluid retention, soft tissue. HEART: S1, S2, no S3. No murmurs. No cyanosis or clubbing. No ascites. Pulses: Dorsalis pedis and posterior tibial pulses +1 to +2 both sides. ABDOMEN: Soft. Nontender. Bowel sounds active. No CVA tenderness. No mass felt. EXTREMITIES: Some edema. Full range of motion of all extremities, equal. NEUROLOGIC: No focal deficit. Cranial nerves II through XII are grossly intact. No headache, no double vision or headache. SKIN: Not dry. Intact. Turgor - normal. LYMPHATIC: No palpable lymph nodes/no lymphedema. MUSCULOSKELETAL: Normal joints with no swelling. Muscle tone is normal. PLAN: 1. Make him get up 2. Physical therapy for the left upper extremity 3. IM Lasix 40mg just one dose 4. Continue NEBS 5. Antibiotics 6. Fried Catheter draining well 7. Will do some more things for his constipation 8. Continue all antibiotics, IM Decadron twice a day, NEBS with Xopenex. 9. Continue PO Lasix 10.Encourage patient to eat. 11.Given half bottle of Mag Citrate and possible fluid enema CONDITION: Improving, slowly The patient is DNR TIME SPENT: More than 30 minutes. Plan and coordination of the patient's care discussed in the presence of nurse. PAULIE
--- NOTE | 2017-03-03 09:28 | PCM.PROG ---
Attending Provider: ATTENDING PROVIDER: Dr. LIGIA LONDON DATE OF SERVICE: 03/03/17 SUBJECTIVE: This 72 year old WHITE/ M was hospitalized 02/18/17. The patient is hospitalized with pneumonia, respiratory failure, acute respiratory distress syndrome from CHF, severe chronic lung disease and pneumonitis. The patient has remarkably improved. ABG - P02 50 on room air, normal pH with 89% saturation, which is unbelievably good. REVIEW OF SYSTEMS: CONSTITUTIONAL: Weakness. No night sweats. No fever or chills. HEENT: Eyes: No visual changes. No eye pain. No eye discharge. ENT: No runny nose. No epistaxis. No sinus pain. No odynophagia. No congestion. RESPIRATORY: Shortness of breath on exertion. No cough, no congestion. No hemoptysis. CARDIOVASCULAR: No angina symptoms. No CHF symptoms. No atypical chest pain for CAD. No palpitations. No orthopnea.. GASTROINTESTINAL: No abdominal pain. No nausea or vomiting. No diarrhea or constipation. No hematemesis. No hematochezia. GENITOURINARY: No urgency. No frequency. No dysuria. No hematuria. No obstructive symptoms. No discharge. No pain. No significant abnormal bleeding. MUSCULOSKELETAL: No musculoskeletal pain; no joint swelling. NEUROLOGICAL: Awake, alert, oriented to time, place and person. No headache. No neck pain. No syncope. No seizures. No dizziness. PSYCHIATRIC: Not anxious. No depression. No suicidal thoughts. No homicidal thoughts. SKIN: No rash. No lesions. No wounds. ENDOCRINE: No unexplained weight loss. No weight gain. HEMATOLOGIC/LYMPHATIC: No anemia. No purpura. No petechiae. No prolonged or excessive bleeding. No palpable lymph nodes. PHYSICAL EXAMINATION: GENERAL: The patient is awake, alert and oriented, lying in bed in no distress. VITAL SIGNS: Temperature 97.7 F, Pulse 98, Respiratory Rate 20, BP 94/62, Pulse Ox 93% HEENT: Head normocephalic, atraumatic. Eyes: Extraocular muscles are intact. Pupils are equal, round and reactive to light and accommodation. Ears: No lesions. Nose appeared normal. Throat: No exudate or erythema. NECK: Supple. No JVD, no carotid bruit. No lymphadenopathy or thyromegaly. LUNGS: Decreased breath sounds with good air entry. Clear to auscultation. Percussion note normal. Chest symmetrical. HEART: S1, S2, no S3. No murmurs. No cyanosis or clubbing. No ascites. Pulses: Dorsalis pedis and posterior tibial pulses +1 to +2 both sides. ABDOMEN: Soft. Non-tender. Bowel sounds active. No CVA tenderness. No mass felt. EXTREMITIES: No edema. Full range of motion of all extremities, equal. NEUROLOGIC: No focal deficit. Cranial nerves II through XII are grossly intact. No headache, no double vision or headache. SKIN: Not dry. Intact. Turgor-normal. LYMPHATIC: No palpable lymph nodes/no lymphedema. MUSCULOSKELETAL: Normal joints with no swelling. Muscle tone is normal. LAB REVIEW: 03/02/17 04:10 03/02/17 04:10 03/02/17 09:30: Puncture Site Rr, O2 Saturation 87.0 L, ABG pH 7.482 H, ABG pCO2 38.8, ABG pO2 50.0 L*, ABG HCO3 29.0 H, ABG Total CO2 30 H, ABG Base Excess 6 H, Tom Test +, FiO2 % 21.0 ASSESSMENT: 1. PNEUMONITIS RESOLVED 2. RESPIRATORY FAILURE WITH REMARKABLE IMPROVEMENT 3. CHF UNDER CONTROL 4. HISTORY OF ATRIAL FLUTTER/FIBRILLATION 5. DIABETES MELLITUS PLAN: 1. Continue antibiotics, nebs treatment and steroids. Plan and coordination of the patient's care discussed in the presence of Commercial Review Appraiser and nurse. CONDITION: Stable SCRIBED BY: MARLIN GRAY Applied Technologist scribed while in presence of service performed by Dr. LIGIA LONDON on 03/03/17 ([id number])
[2017-03-03] MEDS: CALMOSEPTINE OINTMENT TP SCH ×4 (12:39→21:12)
--- NOTE | 2017-03-03 12:58 | PN ---
DATE OF SERVICE: 03/01/17 SUBJECTIVE: 72 year old white male hospitalized with pneumonia and respiratory failure, now he is swing bed with antibiotics. The patient's condition has steadily improved. Even talks stronger than yesterday with good lung entry. The is in the room. REVIEW OF SYSTEMS: CONSTITUTIONAL: No night sweats. No fatigue, malaise, lethargy. No fever or chills. HEENT: Eyes: No visual changes. No eye pain. No eye discharge. ENT: No runny nose. No epistaxis. No sinus pain. No sore throat. No odynophagia. No congestion. RESPIRATORY: No cough, no congestion. No hemoptysis. No shortness of breath. CARDIOVASCULAR: No angina symptoms. No CHF symptoms. No atypical chest pain for CAD. No palpitations. No orthopnea. GASTROINTESTINAL: No abdominal pain. No nausea or vomiting. No diarrhea or constipation. No hematemesis. No hematochezia. Appetite has improved. GENITOURINARY: No urgency. No frequency. No dysuria. No hematuria. No obstructive symptoms. No discharge. No pain. No significant abnormal bleeding. MUSCULOSKELETAL: No musculoskeletal pain; no joint swelling. NEUROLOGICAL: No headache. No neck pain. No syncope. No seizures. No dizziness. PSYCHIATRIC: Not anxious. No depression. No suicidal thoughts. No homicidal thoughts. SKIN: No rash. No lesions. No wounds. ENDOCRINE: No unexplained weight loss. No weight gain. HEMATOLOGIC/LYMPHATIC: No anemia. No purpura. No petechiae. No prolonged or excessive bleeding. No palpable lymph nodes. PHYSICAL EXAMINATION: VITAL SIGNS: Oximetry 92% on 4 liters, pulse of 70, respiratory rate 18, blood pressure 106/69. HEENT: Head normocephalic, atraumatic. Eyes: Extraocular muscles are intact. Pupils are equal, round and reactive to light and accommodation. Ears: No lesions. Nose appeared normal. Throat: No exudate or erythema. NECK: Supple. No JVD, no carotid bruit. No lymphadenopathy or thyromegaly. LUNGS: Clear to auscultation. Percussion note normal. Chest symmetrical. HEART: S1, S2, no S3. No murmurs. No cyanosis or clubbing. No ascites. Pulses: Dorsalis pedis and posterior tibial pulses +1 to +2 both sides. ABDOMEN: Soft. Nontender. Bowel sounds active. No CVA tenderness. No mass felt. EXTREMITIES: No edema. Full range of motion of all extremities, equal. NEUROLOGIC: No focal deficit. Cranial nerves II through XII are grossly intact. No headache, no double vision or headache. SKIN: Not dry. Intact. Turgor - normal. LYMPHATIC: No palpable lymph nodes/no lymphedema. MUSCULOSKELETAL: Normal joints with no swelling. Muscle tone is normal. ASSESSMENT: 1. Pneumonitis 2. Acute respiratory distress syndrome type of picture with history of having fluid overload, CHF and pneumonitis seems to be resolving. PLAN: 1. Continue antibiotics Doxycycline and Rocephin 2. Continue steroids 3. Continue NEBS treatment 4. Will do chest x-ray in the morning with BNP 5. ABG on room air CONDITION: Improving and stabilizing. TIME SPENT: More than 30 minutes. Plan and coordination of the patient's care discussed in the presence of nurse. PAULIE
[2017-03-03] MEDS: DECADRON 4 MG/ML SDV IM SCH (14:00)
[2017-03-03] MEDS: ELIQUIS PO SCH ×2 (14:01→21:14)
[2017-03-03] MEDS: DOXYCYCLINE HYCLATE PO SCH ×2 (14:01→21:13)
[2017-03-03] MEDS: SENNA PO SCH ×2 (14:04→21:14)
[2017-03-03] MEDS: SYMBICORT 160-4.5 MCG INHALER IH SCH ×2 (14:04→21:13)
[2017-03-03] MEDS: XALATAN OP SCH (21:13)
[2017-03-03] MEDS: ROCEPHIN IM SCH (21:14)
[2017-03-03] MEDS: LIDOCAINE HCL 1% SDV IM SCH (21:15)
[2017-03-03] MEDS: XANAX PO PRN (21:21)
[2017-03-04] MEDS: XOPENEX 1.25 MG NEB SCH ×4 (04:28→22:33)
[2017-03-04] MEDS: NYSTATIN ORAL SUSP PO SCH ×4 (05:36→21:18)
[2017-03-04] MEDS: LASIX TAB PO SCH (05:36)
[2017-03-04] MEDS: ELIQUIS PO SCH ×2 (11:15→21:21)
[2017-03-04] MEDS: DECADRON 4 MG/ML SDV IM SCH (11:15)
[2017-03-04] MEDS: SENNA PO SCH ×2 (11:15→21:19)
[2017-03-04] MEDS: DOXYCYCLINE HYCLATE PO SCH ×2 (11:15→21:18)
[2017-03-04] MEDS: SYMBICORT 160-4.5 MCG INHALER IH SCH ×2 (11:16→21:18)
--- NOTE | 2017-03-04 11:57 | PN ---
DATE OF SERVICE: 02/28/17 SUBJECTIVE: 72 year old white male hospitalized with pneumonia. He was later on put on the swing bed for IV antibiotic. The patient is on Doxycycline and Rocephin. Im Azactam twice a day has been discontinued. The patient's oral status has improved. This morning he is feeling a lot better. His oximetry is 91% on 3 liters. He is getting a lot better. He had some bowel movement. Fried catheter is still draining clear urine. REVIEW OF SYSTEM: All negative, except for shortness of breath on minimal exertion. PHYSICAL EXAMINATION: GENERAL: The patient is in no distress. HEENT: Head normocephalic, atraumatic. Eyes: Extraocular muscles are intact. Pupils are equal, round and reactive to light and accommodation. Ears: No lesions. Nose appeared normal. Throat: No exudate or erythema. NECK: Supple. No JVD, no carotid bruit. No lymphadenopathy or thyromegaly. LUNGS: Decreased breath sounds with good air entry. Much better on his lung entry for the five to six days. Percussion note normal. Chest symmetrical. HEART: S1, S2, no S3. No murmurs. No cyanosis or clubbing. No ascites. Pulses: Dorsalis pedis and posterior tibial pulses +1 to +2 both sides. ABDOMEN: Soft. Nontender. Bowel sounds active. No CVA tenderness. No mass felt. EXTREMITIES: No edema. Full range of motion of all extremities, equal. NEUROLOGIC: No focal deficit. Cranial nerves II through XII are grossly intact. No headache, no double vision or headache. SKIN: Not dry. Intact. Turgor - normal. LYMPHATIC: No palpable lymph nodes/no lymphedema. MUSCULOSKELETAL: Normal joints with no swelling. Muscle tone is normal. LABS: Hemoglobin 15, hematocrit 45, WBC 16,000 with normal differential. Creatinine 0.6, BUN 34, potassium 3.9. ASSESSMENT: 1. PNEUMONITIS, RESOLVING 2. RESPIRATORY FAILURE, CHRONIC 3. HYPOXEMIA UNDER CONTROL 4. CARDIAC RHYTHM SEEMS TO BE SINUS PLAN: Continue the same management with Decadron twice a day, along with continuation of Rocephin and Doxycycline with Xopenex Nebs treatment. TIME SPENT: More than 30 minutes. Plan and coordination of the patient's care discussed in the presence of nurse. PAULIE
--- NOTE | 2017-03-04 12:09 | PN ---
DATE OF SERVICE: 03/02/17 SUBJECTIVE: 72 year old white male in the swing bed for antibiotic treatment. The patient's pneumonia seems to have practically resolved clinically. He is feeling a lot better. REVIEW OF SYSTEMS: CONSTITUTIONAL: No night sweats. No fatigue, malaise, lethargy. No orthopnea, no fever or chills. Appetite is improving. HEENT: Eyes: No visual changes. No eye pain. No eye discharge. ENT: No runny nose. No epistaxis. No sinus pain. No sore throat. No odynophagia. No congestion. RESPIRATORY: Mild cough, no congestion. No hemoptysis. Still short of breath on minimal exertion from his severe chronic lung disease and inactivity and the sickness that he has been through for the past two weeks. CARDIOVASCULAR: No angina symptoms. No CHF symptoms. No atypical chest pain for CAD. No palpitations. No orthopnea. GASTROINTESTINAL: No abdominal pain. No nausea or vomiting. No diarrhea or constipation. No hematemesis. No hematochezia. GENITOURINARY: No urgency. No frequency. No dysuria. No hematuria. No obstructive symptoms. No discharge. No pain. No significant abnormal bleeding. MUSCULOSKELETAL: No musculoskeletal pain; no joint swelling. NEUROLOGICAL: No headache. No neck pain. No syncope. No seizures. No dizziness. PSYCHIATRIC: Not anxious. No depression. No suicidal thoughts. No homicidal thoughts. SKIN: No rash. No lesions. No wounds. ENDOCRINE: No unexplained weight loss. No weight gain. HEMATOLOGIC/LYMPHATIC: No anemia. No purpura. No petechiae. No prolonged or excessive bleeding. No palpable lymph nodes. PHYSICAL EXAMINATION: GENERAL: The patient is oriented to time, place and person. VITAL SIGNS: Temperature 97.8, pulse 80 per minute, respiratory rate 18, blood pressure 133/82, pulse ox 98% with 3 liters. HEENT: Head normocephalic, atraumatic. Eyes: Extraocular muscles are intact. Pupils are equal, round and reactive to light and accommodation. Ears: No lesions. Nose appeared normal. Throat: No exudate or erythema. NECK: Supple. No JVD, no carotid bruit. No lymphadenopathy or thyromegaly. LUNGS: Decreased breath sounds with a few creps, but good air entry. Good for the patients usual average. Percussion note normal. Chest symmetrical. HEART: S1, S2, no S3. No murmurs. No cyanosis or clubbing. No ascites. Pulses: Dorsalis pedis and posterior tibial pulses +1 to +2 both sides. ABDOMEN: Soft. Nontender. Bowel sounds active. No CVA tenderness. No mass felt. EXTREMITIES: No edema. Full range of motion of all extremities, equal. NEUROLOGIC: No focal deficit. Cranial nerves II through XII are grossly intact. No headache, no double vision or headache. SKIN: Not dry. Intact. Turgor - normal. LYMPHATIC: No palpable lymph nodes/no lymphedema. MUSCULOSKELETAL: Normal joints with no swelling. Muscle tone is normal. LABS: Hemoglobin 14, hematocrit 44, WBC 13,000 with normal differential, creatinine 0.6, BUN 22, potassium 4.4. ASSESSMENT: 1. ACUTE RESPIRATORY FAILURE SEEMS TO BE UNDER CONTROL 2. PNEUMONIA SEEMS TO HAVE RESOLVED 3. CHRONIC LUNG DISEASE 4. ATRIAL FIBRILLATION/FLUTTER SEEMS TO HAVE RESOLVED. THE PATIENT SEEMS TO BE IN SINUS RHYTHM 5. BLOOD SUGAR IS STILL HIGH BECAUSE OF STEROIDS. WE WILL CUT DOWN THE DECADRON TO ONCE A DAY. PLAN: 1. The patient has constipation and will give Senokot. 2. We will reduce the patient's steroids to 1 cc daily. The sugar is running high because of steroid usage. We will have to control the sugar better. 3. We will do a chest x-ray. 4. ABG on room air. The patient has improved a lot. CONDITION: Stable. We will plan for the patient's discharge pretty soon. TIME SPENT: More than 30 minutes. Plan and coordination of the patient's care discussed in the presence of nurse. PAULIE
[2017-03-04] MEDS: CALMOSEPTINE OINTMENT TP SCH ×2 (13:11→13:12)
[2017-03-04] MEDS: BACTROBAN TP SCH ×2 (13:11→21:20)
--- NOTE | 2017-03-04 14:26 | DI ---
EXAM: Single view of the chest. History: Follow-up pneumonia Comparison: Chest radiograph 01/27/2017, chest CT 02/11/2017 Findings: Heart is mildly enlarged. Right lower lobe consolidation is worsening. No pneumothorax. Small right pleural effusion. No acute osseous abnormalities. Impression: Worsening right lower lobe pneumonia.
[2017-03-04] MEDS: XALATAN OP SCH (21:18)
[2017-03-04] MEDS: ROCEPHIN IM SCH (21:19)
[2017-03-04] MEDS: LIDOCAINE HCL 1% SDV IM SCH (21:19)
[2017-03-04] MEDS: XANAX PO PRN (21:29)
[2017-03-04] MEDS: MORPHINE 2 MG/ML SYRINGE IM PRN (22:20)
[2017-03-05] MEDS: XOPENEX 1.25 MG NEB SCH ×4 (04:25→23:11)
[2017-03-05] MEDS: LASIX TAB PO SCH (05:33)
[2017-03-05] MEDS: NYSTATIN ORAL SUSP PO SCH ×4 (05:33→21:26)
[2017-03-05] MEDS: SYMBICORT 160-4.5 MCG INHALER IH SCH ×2 (08:50→21:24)
[2017-03-05] MEDS: MULTIVITAMIN TABLET PO SCH (08:51)
[2017-03-05] MEDS: ELIQUIS PO SCH ×2 (08:51→21:25)
[2017-03-05] MEDS: VITAMIN C PO SCH (08:52)
[2017-03-05] MEDS: DECADRON 4 MG/ML SDV IM SCH (08:52)
[2017-03-05] MEDS: DOXYCYCLINE HYCLATE PO SCH ×2 (08:52→21:26)
[2017-03-05] MEDS: SENNA PO SCH ×2 (08:52→21:26)
[2017-03-05] MEDS: ZINC-220 PO SCH (08:54)
[2017-03-05] MEDS: BACTROBAN TP SCH ×2 (14:00→21:23)
[2017-03-05] MEDS: MORPHINE 2 MG/ML SYRINGE IM PRN (14:39)
[2017-03-05] MEDS: XALATAN OP SCH (21:24)
[2017-03-05] MEDS: XANAX PO PRN (21:26)
[2017-03-05] MEDS: ROCEPHIN IM SCH (21:26)
[2017-03-05] MEDS: LIDOCAINE HCL 1% SDV IM SCH (21:27)
[2017-03-06] MEDS: MORPHINE 2 MG/ML SYRINGE IM PRN ×2 (01:24→21:03)
[2017-03-06] MEDS: XANAX PO PRN ×3 (01:25→20:34)
[2017-03-06] MEDS: XOPENEX 1.25 MG NEB SCH ×4 (04:27→22:32)
[2017-03-06] MEDS: NYSTATIN ORAL SUSP PO SCH ×4 (05:45→20:32)
[2017-03-06] MEDS: LASIX TAB PO SCH (05:45)
[2017-03-06] MEDS: DOXYCYCLINE HYCLATE PO SCH ×2 (08:26→20:33)
[2017-03-06] MEDS: SENNA PO SCH ×2 (08:26→20:34)
[2017-03-06] MEDS: SYMBICORT 160-4.5 MCG INHALER IH SCH ×2 (08:26→20:32)
[2017-03-06] MEDS: ZINC-220 PO SCH (08:26)
[2017-03-06] MEDS: ELIQUIS PO SCH ×2 (08:26→20:33)
[2017-03-06] MEDS: VITAMIN C PO SCH (08:27)
[2017-03-06] MEDS: DECADRON 4 MG/ML SDV IM SCH (08:27)
[2017-03-06] MEDS: MULTIVITAMIN TABLET PO SCH (08:27)
[2017-03-06] MEDS: BACTROBAN TP SCH ×2 (08:27→20:37)
--- NOTE | 2017-03-06 10:45 | PN ---
DATE OF SERVICE: 03/05/17 SUBJECTIVE: 72 year old white male hospitalized with pneumonia and respiratory failure. The patient's condition has steadily improved and his present problem is constipation. He has been given Mag Citrate, Soap enema, Fleet enema, Ducolax suppository, Metamucil with some response and he wants some more. REVIEW OF SYSTEMS: CONSTITUTIONAL: No night sweats. No fatigue, malaise, lethargy. No fever or chills. HEENT: Eyes: No visual changes. No eye pain. No eye discharge. ENT: No runny nose. No epistaxis. No sinus pain. No sore throat. No odynophagia. No congestion. RESPIRATORY: No cough, no congestion. No hemoptysis. No shortness of breath. CARDIOVASCULAR: No angina symptoms. No CHF symptoms. No atypical chest pain for CAD. No palpitations. No orthopnea. GASTROINTESTINAL: Appetite has decreased for last couple of days. No abdominal pain. No nausea or vomiting. Constipation. No hematemesis. No hematochezia. GENITOURINARY: No urgency. No frequency. No dysuria. No hematuria. No obstructive symptoms. No discharge. No pain. No significant abnormal bleeding. MUSCULOSKELETAL: No musculoskeletal pain; no joint swelling. NEUROLOGICAL: No headache. No neck pain. No syncope. No seizures. No dizziness. PSYCHIATRIC: Not anxious. No depression. No suicidal thoughts. No homicidal thoughts. SKIN: No rash. No lesions. No wounds. ENDOCRINE: No unexplained weight loss. No weight gain. HEMATOLOGIC/LYMPHATIC: No anemia. No purpura. No petechiae. No prolonged or excessive bleeding. No palpable lymph nodes. PHYSICAL EXAMINATION: GENERAL: The patient is oriented to time, place and person. VITAL SIGNS: Temperature 97, pulse 80 this morning respiratory rate 20, blood pressure 110/60 and pulse ox 93%. HEENT: Head normocephalic, atraumatic. Eyes: Extraocular muscles are intact. Pupils are equal, round and reactive to light and accommodation. Ears: No lesions. Nose appeared normal. Throat: No exudate or erythema. NECK: Supple. No JVD, no carotid bruit. No lymphadenopathy or thyromegaly. LUNGS: Decreased breath sounds but Clear to auscultation. Percussion note normal. Chest symmetrical. HEART: S1, S2, no S3. No murmurs. No cyanosis or clubbing. No ascites. Pulses: Dorsalis pedis and posterior tibial pulses +1 to +2 both sides. ABDOMEN: Soft. Nontender. Bowel sounds active. No CVA tenderness. No mass felt. EXTREMITIES: No edema. Full range of motion of all extremities, equal. NEUROLOGIC: No focal deficit. Cranial nerves II through XII are grossly intact. No headache, no double vision or headache. SKIN: Not dry. Intact. Turgor - normal. LYMPHATIC: No palpable lymph nodes/no lymphedema. MUSCULOSKELETAL: Normal joints with no swelling. Muscle tone is normal. ASSESSMENT: 1. Respiratory status improving 2. Pneumonia seems to be resolving PLAN: 1. Continue Steroids, antibiotics 2. Will give more enemas, Soap. Discuss with Yakelin the nurse. TIME SPENT: More than 30 minutes. Plan and coordination of the patient's care discussed in the presence of nurse. PAULIE
[2017-03-06] MEDS: KEFLEX PO SCH ×2 (10:52→20:33)
--- NOTE | 2017-03-06 10:53 | PCM.PROG ---
Attending Provider: ATTENDING PROVIDER: Dr. LIGIA YOUSSEF This patient is seen with Astrid Campos, Nurse Practitioner. DATE OF SERVICE: 03/06/17 SUBJECTIVE: This 72 year old WHITE/ M was hospitalized 02/18/17. The patient is lying in bed, alert. He has decubitus on bottom. He had two soft bowel movements last night. The patient is encouraged to eat well. He is also encouraged to position himself off his coccyx. REVIEW OF SYSTEMS: CONSTITUTIONAL: Weakness. No night sweats. No fatigue, malaise, lethargy. No fever or chills. HEENT: Eyes: No visual changes. No eye pain. No eye discharge. ENT: No runny nose. No epistaxis. No sinus pain. No odynophagia. No congestion. RESPIRATORY: No cough, no congestion. No hemoptysis. Shortness of breath. CARDIOVASCULAR: No angina symptoms. No CHF symptoms. No atypical chest pain for CAD. No palpitations. No orthopnea.. GASTROINTESTINAL: Poor appetite. No abdominal pain. No nausea or vomiting. No diarrhea or constipation. No hematemesis. No hematochezia. GENITOURINARY: No urgency. No frequency. No dysuria. No hematuria. No obstructive symptoms. No discharge. No pain. No significant abnormal bleeding. MUSCULOSKELETAL: No musculoskeletal pain; no joint swelling. NEUROLOGICAL: Awake, alert, oriented to time, place and person. No headache. No neck pain. No syncope. No seizures. No dizziness. PSYCHIATRIC: Not anxious. No depression. No suicidal thoughts. No homicidal thoughts. SKIN: No rash. Decubitus on bottom. ENDOCRINE: No unexplained weight loss. No weight gain. HEMATOLOGIC/LYMPHATIC: No anemia. No purpura. No petechiae. No prolonged or excessive bleeding. No palpable lymph nodes. PHYSICAL EXAMINATION: GENERAL: The patient is awake, alert and oriented, lying in bed in no distress. VITAL SIGNS: Temperature 98.8 F, Pulse 64, Respiratory Rate 20, BP 102/98, Pulse Ox 89% HEENT: Head normocephalic, atraumatic. Eyes: Extraocular muscles are intact. Pupils are equal, round and reactive to light and accommodation. Ears: No lesions. Nose appeared normal. Throat: No exudate or erythema. NECK: Supple. No JVD, no carotid bruit. No lymphadenopathy or thyromegaly. LUNGS: Diminished breath sounds. Clear to auscultation. Percussion note normal. Chest symmetrical. HEART: S1, S2, no S3. No murmurs. No cyanosis or clubbing. No ascites. Pulses: Dorsalis pedis and posterior tibial pulses +1 to +2 both sides. ABDOMEN: Soft. Non-tender. Bowel sounds active. No CVA tenderness. No mass felt. EXTREMITIES: No edema. Full range of motion of all extremities, equal. NEUROLOGIC: No focal deficit. Cranial nerves II through XII are grossly intact. No headache, no double vision or headache. SKIN: Stage 1 decubitus on buttock approximately 2 x 2 inches. LYMPHATIC: No palpable lymph nodes/no lymphedema. MUSCULOSKELETAL: Normal joints with no swelling. Muscle tone is normal. LAB REVIEW: 03/06/17 04:30 03/06/17 04:30 03/06/17 04:30: Sodium 139, Potassium 3.5, Chloride 98, Carbon Dioxide 32 H, Anion Gap 12.5, BUN 20 H, Creatinine 0.71, Estimated GFR (MDRD) 109.00, BUN/ Creatinine Ratio 28.16, Glucose 162 H, Calcium 8.9, Total Bilirubin 0.5, AST 21 , ALT 52, Alkaline Phosphatase 71, Total Protein 6.0, Albumin 1.9 L, Globulin 4.1, Albumin/Globulin Ratio 0.46 03/06/17 04:30: WBC 7.57, RBC 5.72, Hgb 15.9, Hct 49.0, MCV 85.7, MCH 27.8, MCHC 32.4, RDW Coeff of Iván 14.6, Plt Count 129 L, Immature Gran % (Auto) 0.8, Neut % (Auto) 87.5, Lymph % (Auto) 6.7 L, Arroyo % (Auto) 4.9, Eos % (Auto) 0.0, Baso % (Auto) 0.1, Immature Gran # (Auto) 0.1, Neut # 6.6, Lymph # 0.5 L, Arroyo # 0.4, Eos # 0.0, Baso # 0.0 ASSESSMENT: 1. STAGE 1 DECUBITUS BUTTOCK 2. PNEUMONITIS RESOLVED 3. RESPIRATORY FAILURE WITH REMARKABLE IMPROVEMENT 4. CHF UNDER CONTROL 5. HISTORY OF ATRIAL FLUTTER/FIBRILLATION 6. DIABETES MELLITUS PLAN: 1. Consult Dr. Hernandez 2. D/C Madeleine 3. Begin Keflex Plan and coordination of the patient's care discussed in the presence of Licensed Optical Dispenser and nurse. CONDITION: Stable SCRIBED BY: MARLIN GRAY Payable Processor scribed while in presence of service performed by Dr. Youssef/Astrid Campos APRN on 03/06/17 ([id number])
[2017-03-06] MEDS: XALATAN OP SCH (20:32)
[2017-03-07] MEDS ORDERED: LANOXIN PO STA (01:48)
[2017-03-07] MEDS ORDERED: CARDIZEM PO ONE (01:50)
[2017-03-07] MEDS ORDERED: CARDIZEM ONE ×3 (01:52→22:46)
[2017-03-07] MEDS: XOPENEX 1.25 MG NEB SCH ×4 (05:04→22:35)
[2017-03-07] MEDS: NYSTATIN ORAL SUSP PO SCH ×4 (05:53→22:50)
[2017-03-07] MEDS: LASIX TAB PO SCH (05:53)
[2017-03-07] MEDS: XANAX PO PRN ×2 (05:53→22:52)
[2017-03-07] MEDS: MORPHINE 2 MG/ML SYRINGE IM PRN (06:00)
[2017-03-07] MEDS ORDERED: MORPHINE 2 MG/ML SYRINGE IM PRN ×2 (09:28)
[2017-03-07] MEDS: BACTROBAN TP SCH ×2 (09:49→22:57)
[2017-03-07] MEDS: DOXYCYCLINE HYCLATE PO SCH ×2 (09:50→22:51)
[2017-03-07] MEDS: VITAMIN C PO SCH (09:50)
[2017-03-07] MEDS: ELIQUIS PO SCH ×2 (09:50→22:51)
[2017-03-07] MEDS: ZINC-220 PO SCH (09:50)
[2017-03-07] MEDS: SYMBICORT 160-4.5 MCG INHALER IH SCH ×2 (09:50→22:49)
[2017-03-07] MEDS: DECADRON 4 MG/ML SDV IM SCH (09:51)
[2017-03-07] MEDS: MULTIVITAMIN TABLET PO SCH (09:51)
[2017-03-07] MEDS: SENNA PO SCH ×2 (09:51→22:52)
[2017-03-07] MEDS: KEFLEX PO SCH ×2 (09:51→22:51)
[2017-03-07] MEDS ORDERED: ROXANOL 20 MG/ML ONE (09:58)
[2017-03-07] MEDS: ROXANOL 20 MG/ML PO PRN ×4 (10:07→14:04)
[2017-03-07] MEDS ORDERED: CARDIZEM PO STA (12:55)
[2017-03-07] MEDS: XALATAN OP SCH (22:49)
[2017-03-07] MEDS: CARDIZEM PO SCH (22:58)
[2017-03-08] MEDS: ROXANOL 20 MG/ML PO PRN ×5 (00:24→19:30)
[2017-03-08] MEDS: LASIX TAB PO SCH (05:47)
[2017-03-08] MEDS: NYSTATIN ORAL SUSP PO SCH ×3 (05:47→17:16)
[2017-03-08] MEDS: XOPENEX 1.25 MG NEB SCH ×3 (06:25→17:27)
[2017-03-08] MEDS: BACTROBAN TP SCH (08:30)
[2017-03-08] MEDS: ELIQUIS PO SCH (08:30)
[2017-03-08] MEDS: SYMBICORT 160-4.5 MCG INHALER IH SCH (08:30)
[2017-03-08] MEDS: KEFLEX PO SCH (08:31)
[2017-03-08] MEDS: SENNA PO SCH (08:31)
[2017-03-08] MEDS: MULTIVITAMIN TABLET PO SCH (08:31)
[2017-03-08] MEDS: VITAMIN C PO SCH (08:31)
[2017-03-08] MEDS: DOXYCYCLINE HYCLATE PO SCH (08:31)
[2017-03-08] MEDS: CARDIZEM PO SCH (08:31)
[2017-03-08] MEDS: ZINC-220 PO SCH (08:31)
[2017-03-08] MEDS: DECADRON 4 MG/ML SDV IM SCH (08:33)
[2017-03-08] MEDS ORDERED: LANOXIN PO STA (10:37)
[2017-03-08] MEDS ORDERED: LASIX IM STA (10:39)
[2017-03-08] MEDS ORDERED: CARDIZEM PO SCH ×2 (10:43→21:00)
[2017-03-08 18:03] VITALS: BP 103/75; TEMP 97.8
--- NOTE | 2017-03-09 04:11 | PCM.PROG ---
Time of : 19:45 (No pulse, breathing Pupils Fixed and dilated. on 03/08 at 19:45) Preliminary Cause of : Pneumonia
--- NOTE | 2017-03-09 08:22 | RS.OTQKDC ---
OT Discharge Date of Discharge: 03/09/17 Reason for Discharge: Pt .
--- NOTE | 2017-03-09 11:57 | PN ---
DATE OF SERVICE: 03/07/17 SUBJECTIVE: 72 year old white male has some improvement in his condition but last couple of days he has deteriorated with his rhythm being in SVT with rate of 150-170 per minute. The patient's family and the patient have refused to have IV started. His blood pressure is fluctuating. During the time I was there his blood pressure was close to 60-70. His oral intake is also poor for past couple of days. The patient's family again including the wants him to be DNR and wants comfort measures so the patient has been put on Roxanol 0.25mg that is 5mg equivalent of Morphine Sulfate every hourly for the comfort measures. Will also given him Cardizem 60mg extra dose in the morning and we will put him on 60mg twice a day. The patient has history of atrial flutter with rapid ventricular response. The patient's family does not want any IV started on any treatment further for his medical problems. REVIEW OF SYSTEMS: CONSTITUTIONAL: No night sweats. No fatigue, malaise, lethargy. No fever or chills. HEENT: Eyes: No visual changes. No eye pain. No eye discharge. ENT: No runny nose. No epistaxis. No sinus pain. No sore throat. No odynophagia. No congestion. RESPIRATORY: No cough, no congestion. No hemoptysis. No shortness of breath. CARDIOVASCULAR: No angina symptoms. No CHF symptoms. No atypical chest pain for CAD. No palpitations. No orthopnea. GASTROINTESTINAL: No abdominal pain. No nausea or vomiting. No diarrhea or constipation. No hematemesis. No hematochezia. GENITOURINARY: No urgency. No frequency. No dysuria. No hematuria. No obstructive symptoms. No discharge. No pain. No significant abnormal bleeding. MUSCULOSKELETAL: No musculoskeletal pain; no joint swelling. NEUROLOGICAL: No headache. No neck pain. No syncope. No seizures. No dizziness. PSYCHIATRIC: Not anxious. No depression. No suicidal thoughts. No homicidal thoughts. SKIN: No rash. No lesions. No wounds. ENDOCRINE: No unexplained weight loss. No weight gain. HEMATOLOGIC/LYMPHATIC: No anemia. No purpura. No petechiae. No prolonged or excessive bleeding. No palpable lymph nodes. PHYSICAL EXAMINATION: GENERAL: The patient is oriented to person and place and he wants everything to be left alone and not to be poked except for the blood tests. VITAL SIGNS: Temperature 97, pulse 170, respiratory rate 44 and shallow, blood pressure 115/83, pulse ox 87% on 4-5 liters. HEENT: Head normocephalic, atraumatic. Eyes: Extraocular muscles are intact. Pupils are equal, round and reactive to light and accommodation. Ears: No lesions. Nose appeared normal. Throat: No exudate or erythema. NECK: Supple. No JVD, no carotid bruit. No lymphadenopathy or thyromegaly. LUNGS: Decreased breath sounds with shallow breath sounds. Tachy arrhythmias with rate of 150-60 per minutes. Percussion note normal. Chest symmetrical. HEART: S1, S2, no S3. No murmurs. No cyanosis or clubbing. No ascites. Pulses: Dorsalis pedis and posterior tibial pulses +1 to +2 both sides. ABDOMEN: Soft. Nontender. Bowel sounds active. No CVA tenderness. No mass felt. EXTREMITIES: No edema. Full range of motion of all extremities, equal. NEUROLOGIC: No focal deficit. Cranial nerves II through XII are grossly intact. No headache, no double vision or headache. SKIN: Not dry. Intact. Turgor - normal. LYMPHATIC: No palpable lymph nodes/no lymphedema. MUSCULOSKELETAL: Normal joints with no swelling. Muscle tone is normal. ASSESSMENT: 1. Respiratory failure with pneumonia 2. SVT with fast ventricular response 3. Hypertension combination of pneumonia and SVT PLAN: 1. Have supportive measures 2. The patient is able to swallow so will given oral medications 3. The patient was given Lanoxin, will also give Cardizem. Cardizem has to be monitored because of patient's hypotension. Again hypotension could be from SVT. 4. Will continue to push comfort measures. PROGNOSIS: Poor TIME SPENT: More than 30 minutes. Plan and coordination of the patient's care discussed in the presence of nurse. PAULIE
--- NOTE | 2017-03-09 12:56 | DS ---
DATE OF SERVICE: 03/08/17 FINAL DIAGNOSIS: 1. Acute respiratory failure 2. Pneumonia with repeated aspiration 3. Severe chronic lung disease 4. Proximal atrial flutter/fib 5. Obesity 6. Hypertension 7. Dyslipidemia 8. Chronic kidney disease HOSPITAL COURSE: Preston Luna was originally hospitalized with pneumonia with chronic lung disease. The patient's condition improved initially to some extent and then he went into ARDS with a combination of congestive heart failure and pneumonia which he required IV antibiotics and was put in the swing bed. His hospital course in the swing bed was ups and downs and mostly downward trend. The patient 's family had decided he was DNR and ultimately they were even considering him for Hospice. In any case the patient's family for a week or more had decided not to have any IV medications or IVs. A lot of medications were given IM like Decadron, Lasix whenever he needed. Even the Rocephin was given IM. The patient started aspirating, worsening of his improved respiratory status. Last couple of days that patient went into atrial flutter mostly with fast ventricular response. They did not want telemetry or any extraordinary measures. He was put on Roxanol 0.5mg every hourly to make him comfortable. CAUSE OF : 1.Acute respiratory failure 2.Pneumonia 3.Severe chronic lung disease TIME SPENT: More than 60 minutes. [facility]
== END 2017-03-08 19:45 | disposition expired | DRG 204 ==
LOC: SCU 16:45 → UNDOADMIN 17:12 → SCU 17:12 → MEDSURG A 20:20
PROVIDERS: ADMIT Internal Medicine; ATTEND Internal Medicine
DX: J80 Acute respiratory distress syndrome (principal); J18.9 Pneumonia, unspecified organism; I48.92 Unspecified atrial flutter; I47.1 Supraventricular tachycardia; I48.0 Paroxysmal atrial fibrillation; I50.9 Heart failure, unspecified; J44.9 Chronic obstructive pulmonary disease, unspecified; E66.9 Obesity, unspecified; I10 Essential (primary) hypertension; E78.5 Hyperlipidemia, unspecified; I12.9 Hypertensive chronic kidney disease with stage 1 through stage 4 chronic kidney disease, or unspecified chronic kidney disease; N18.9 Chronic kidney disease, unspecified; K59.00 Constipation, unspecified; L89.151 Pressure ulcer of sacral region, stage 1; Z66 Do not resuscitate; Z79.2 Long term (current) use of antibiotics; Z79.899 Other long term (current) drug therapy
CPT/HCPCS: 36415; 80053; 82550; 82803; 82962; 84484; 85007; 85025; 93005; 93010; 94640; 94644; 97802